=== PATIENT | female | born 1980 | race Caucasian/White ===

== ENCOUNTER 2016-06-30 15:06 | Inpatient (IN) | payer MEDICAID ==
[2016-06-30] MEDS ORDERED: ONDANSETRON 4 MG/2 ML VIAL IVP ONE (15:44)
[2016-06-30] MEDS ORDERED: NS 1,000 ML IV ONE ×3 (15:44→18:17)
--- NOTE | 2016-06-30 15:59 | EDPHY ---
H & P Stated Complaint: worsening Crohn's sx x 2 months. appt w GI on 07/10, can't make it to then. Source: Patient Exam Limitations: No limitations - Personal History LMP (Females 10-55): Unknown Current Tetanus/Diphtheria Vaccine: Unsure Current Tetanus Diphtheria and Acellular Pertussis (TDAP): Unsure - Medical/Surgical History Hx Asthma: No Hx Chronic Respiratory Disease: No Hx Diabetes: No Hx Cardiac Disease: No Hx Renal Disease: No Hx Cirrhosis: No Hx Alcoholism: No Hx HIV/AIDS: No Hx Splenectomy or Spleen Trauma: No Other PMH: CROHN'S DISEASE, HUNNINGTON'S DISEASE - Social History Smoking Status: Current some day smoker HPI/ROS: CHIEF COMPLAINT: Abdominal pain, vomiting, weakness HISTORY OF PRESENT ILLNESS: complains of ongoing abdominal pain. This has been present for months. It is generalized. It is moderate to severe, usually severe. Associated with vomiting and difficulty keeping anything down by mouth. No fever. No bloody stools or emesis. She has difficulty walking she feels so weak from this. She has been seen several times for this and diagnosed with Crohn's disease by CT scan, most recently 2 weeks ago here. She has an appointment on July 10 with [facility] but has not yet been seen by specialists. No trauma. no other associated complaints or modifying factors. REVIEW OF SYSTEMS: Ten systems reviewed and are negative unless otherwise noted in the HPI EXAMINATION General Appearance: Alert, cachectic, no distress, Crying, anxious Head: normocephalic, atraumatic Eyes: Pupils equal and round, no conjunctival pallor or injection ENT, Mouth: Mucous membranes moist Neck: Normal inspection, supple, non-tender Respiratory: Lungs are clear to auscultation Cardiovascular: tachycardic at 110 beats per minute, regular rhythm. Pulses intact throughout Gastrointestinal: Abdomen is soft. generalized tenderness with pain out of proportion to examination. There is no point tenderness. No tympany or rigidity Back: non-tender, no bony abnormalities Neurological: A&O, nonfocal Skin: Warm and dry, no rash. multiple areas of excoriation of varying degrees of healing. Extremities: Nontender, no pedal edema Psychiatric: anxious and visually upset. Denies suicidal ideation DIFFERENTIAL DIAGNOSES: 1. Crohn's flare 2. chronic abdominal pain 3. enteritis 4. colitis 5. urinary tract infection 6. conversion disorder MDM: Acute on chronic abdominal pain and hemodynamically stable patient with a nonacute abdominal examination. She reports a long history of abdominal pain with diagnosis of Crohn's by non specialist providers. She is awaiting appointment on July 10. She reports the last time she was seen here she was given a prescription pain medication that she did not feel for fear of being labeled as a drug-seeking patient. She does admit to taking street drugs of multiple types, most recently over a month ago. Although she denies suicidal ideation to me, I was informed by nursing staff (Shea), that she did admit to being "A little" Suicidal. Thus we will pursue an abdominal pain workup as well as seek a psychiatric evaluation following medication clearance. 16:05 I have discussed the case with Dr. Reji Moss, and at this time he will assume care of the patient. Please see his note for final disposition. SUPERVISION: This is a shared visit (Jan Lemons) Constitutional: Initial Vital Signs Temperature (C) 37.0 C 06/30/16 15:11 Heart Rate 86 06/30/16 15:11 Respiratory Rate 16 06/30/16 15:11 Blood Pressure 119/74 06/30/16 15:11 O2 Sat (%) 99 06/30/16 15:11 O2 Delivery Mode Room Air Allergies/Adverse Reactions: Penicillins Allergy (Unknown, Verified 06/30/16 15:09) Home Medications: Medication Instructions Recorded NK [No Known Home Meds] 06/30/16 - Data Points Laboratory Results: Laboratory Results 06/30/16 15:52 06/30/16 15:52 WBC 7.90 10^3/uL (3.80-9.50) RBC 4.22 10^6/uL (4.18-5.33) Hgb 10.5 L g/dL (12.6-16.3) Hct 31.6 L % (38.0-47.0) MCV 74.9 L fL (81.5-99.8) MCH 24.9 L pg (27.9-34.1) MCHC 33.2 g/dL (32.4-36.7) RDW 17.2 H % (11.5-15.2) Plt Count 552 H 10^3/uL (150-400) MPV 7.8 L fL (8.7-11.7) Neut % (Auto) 66.3 % (39.3-74.2) Lymph % (Auto) 10.8 L % (15.0-45.0) Butts % (Auto) 18.6 H % (4.5-13.0) Eos % (Auto) 1.4 % (0.6-7.6) Baso % (Auto) 0.9 % (0.3-1.7) Nucleat RBC Rel Count 0.0 % (0.0-0.2) Absolute Neuts (auto) 5.24 10^3/uL (1.70-6.50) Absolute Lymphs (auto) 0.85 L 10^3/uL (1.00-3.00) Absolute Monos (auto) 1.47 H 10^3/uL (0.30-0.80) Absolute Eos (auto) 0.11 10^3/uL (0.03-0.40) Absolute Basos (auto) 0.07 10^3/uL (0.02-0.10) Absolute Nucleated RBC 0.00 10^3/uL (0-0.01) Immature Gran % 2.0 H % (0.0-1.1) Immature Gran # 0.16 H 10^3/uL (0.00-0.10) Sodium Pending Potassium Pending Chloride Pending Carbon Dioxide Pending Anion Gap Pending BUN Pending Creatinine Pending Estimated GFR Pending Glucose Pending Calcium Pending Total Bilirubin Pending Conjugated Bilirubin Pending Unconjugated Bilirubin Pending AST Pending ALT Pending Alkaline Phosphatase Pending Total Protein Pending Albumin Pending Lipase Pending Beta HCG, Qual Pending Departure - Departure Clinical Impression: Abdominal pain, Crohn disease Referrals: Joya Greene MD [Primary Care Provider] - As per Instructions
[2016-06-30 16:05] LABS: ABSOLUTE IMMATURE GRANULOCYTES 0.16 10^3/uL (0.00-0.10); ADD DIFF? NO; ADD MORPH? NO; ADD SCAN? NO; ATYPICAL LYMPHOCYTE FLAG 20 (0-99); FRAGMENT RBC FLAG 0 (0-99); HEMATOCRIT 31.6 % (38.0-47.0); HEMOGLOBIN 10.5 g/dL (12.6-16.3); LEFT SHIFT FLG 70 (0-99); LIPEMIA HEMOLYSIS FLAG 80 (0-99); MEAN CELL HEMOGLOBIN 24.9 pg (27.9-34.1); MEAN CELL HEMOGLOBIN CONCENTR. 33.2 g/dL (32.4-36.7); MEAN CELL VOLUME 74.9 fL (81.5-99.8); MEAN PLATELET VOLUME 7.8 fL (8.7-11.7); PLATELET CLUMPS FLAG 0 (0-99); PLATELET COUNT 552 10^3/uL (150-400); RED BLOOD CELL COUNT 4.22 10^6/uL (4.18-5.33); RED CELL DISTRIBUTION WIDTH 17.2 % (11.5-15.2)
--- NOTE | 2016-06-30 16:17 | EDPHY ---
H & P Time Seen by Provider: 06/30/16 16:00 HPI/ROS: Chief complaint. Chest and abdominal pain, can't walk HPI. I assumed care of this patient from the PA and then repeated history physical exam review of systems so this is the 2nd chart after I assumed care of this patient. Patient is a 35-year-old female with history of Crohn's disease. She was seen 06/16 for abdominal pain. At that time CT showed diffuse colonic wall thickening. She was treated with steroids. She otherwise does not take any medications. Today she has different abdominal pain which is generalized but more centered around the umbilicus. She tells me she can't really walk for the past 3 days and has to lie down in the street or even going through the house. She thinks is from malnourishment. She says she has had fever to 102 degrees. No cough. She has left anterior chest discomfort that she describes as crampy without radiation. It has been off and on for several months without precipitating factors. Denies shortness of breath. No vomiting today. She has had diarrhea. Denies urinary symptoms. ROS Constitutional. Fever Eyes. no problems with vision ENT. no sore throat, no nasal drainage Cardiovascular. Chest pain Respiratory. no shortness of breath, no cough Abdominal. Abdominal pain with diarrhea . no problems urinating MS. no calf pain/swelling, no neck/back pain, no joint pain Skin. no rash Lymph. no swollen glands Neuro. Difficulty walking Past Medical/Surgical History: Past medical history is significant for Crohn's disease and Moriah's disease. Social History: Single, daily smoker, denies alcohol Smoking Status: Current some day smoker Physical Exam: General Appearance: Alert well-developed female mild distress vital signs are stable. Eyes: Pupils equal and round no pallor or injection. ENT, Mouth: Mucous membranes are moist. Respiratory: There are no retractions, lungs are clear to auscultation. Cardiovascular: Regular rate and rhythm. Gastrointestinal: Abdomen is soft with generalized tenderness especially at the umbilicus. No rebound tenderness. Normal bowel sounds. No masses Neurological: Awake and alert, sensory and motor exams grossly normal. Skin: Warm and dry, no rashes. Musculoskeletal: Neck is supple nontender. Extremities symmetrical, full range of motion. Psychiatric: Patient is oriented X 3, there is no agitation. Constitutional: Initial Vital Signs Temperature (C) 37.0 C 06/30/16 15:11 Heart Rate 86 06/30/16 15:11 Respiratory Rate 16 06/30/16 15:11 Blood Pressure 119/74 06/30/16 15:11 O2 Sat (%) 99 06/30/16 15:11 O2 Delivery Mode Room Air Allergies/Adverse Reactions: Penicillins Allergy (Unknown, Verified 06/30/16 18:08) Home Medications: Medication Instructions Recorded NK [No Known Home Meds] 06/30/16 Medical Decision Making - Diagnostics EKG Interpretation: EKG interpreted by me shows normal sinus rhythm with normal interval and axis. QRS is normal there is no significant ST elevation or depression. There is no arrhythmia. The rate is 79. Imaging: One-view chest x-ray is interpreted by me as normal CT abdomen and pelvis with IV contrast reviewed by me and discussed with Dr. Millan shows worse colitis since previous CT June 16. No evidence for abscess. Normal appendix Procedures: IV normal saline. Patient was given morphine and Zofran prior to my seeing the patient. She is asking for further pain medication ED Course/Re-evaluation: Re-evaluation at 6:00 p.m.. The patient and I discussed imaging and lab results. We discussed treatment plan including recommendation for admission and importance of follow-up and further evaluation. She expresses understanding and agreement I consulted and discussed the case with Dr. george, GI, who recommends obtaining a C difficile. If C difficile PCR is negative then to begin Solu- Medrol q.8h hours. I consulted and discussed the case with Dr. rosangela waller, hospitalist, who agrees to the admission Differential Diagnosis: I considered appendicitis, diverticulitis, Crohn's disease, abscess, pneumoperitoneum - Data Points Laboratory Results: Laboratory Results 06/30/16 15:52 06/30/16 15:52 06/30/16 06/30/16 06/30/16 17:15 16:55 15:53 WBC RBC Hgb Hct MCV MCH MCHC RDW Plt Count MPV Neut % (Auto) Lymph % (Auto) [place] % (Auto) Eos % (Auto) Baso % (Auto) Nucleat RBC Rel Count Absolute Neuts (auto) Absolute Lymphs (auto) Absolute Monos (auto) Absolute Eos (auto) Absolute Basos (auto) Absolute Nucleated RBC Immature Gran % Immature Gran # Sodium Potassium Chloride Carbon Dioxide Anion Gap BUN Creatinine Estimated GFR Glucose Calcium Total Bilirubin Conjugated Bilirubin Unconjugated Bilirubin AST ALT Alkaline Phosphatase Troponin I < 0.012 ng/mL REJ (0-0.034) Total Protein Albumin Lipase Beta HCG, Qual Specimen Hemolysis Urine Color PALE YELLOW Urine Appearance CLEAR Urine pH 8.0 H (5.0-7.5) Ur Specific Emerson 1.005 (1.002-1.030) Urine Protein NEGATIVE (NEGATIVE) Urine Ketones NEGATIVE (NEGATIVE) Urine Blood NEGATIVE (NEGATIVE) Urine Nitrate NEGATIVE (NEGATIVE) Urine Bilirubin NEGATIVE (NEGATIVE) Urine Urobilinogen NEGATIVE EU (0.2-1.0) Ur Leukocyte Esterase TRACE H (NEGATIVE) Urine RBC 1-3 /hpf (0-3) Urine WBC 1-3 /hpf (0-3) Ur Epithelial Cells TRACE /lpf (NONE-1+) Urine Bacteria TRACE H /hpf (NONE SEEN) Ur Culture Indicated? INDICATED H (NI) Urine Glucose NEGATIVE (NEGATIVE) Urine Opiates Screen NON-NEGATIVE H (NEGATIVE) Urine Barbiturates NEGATIVE (NEGATIVE) Ur Phencyclidine Scrn NEGATIVE (NEGATIVE) Ur Amphetamine Screen NEGATIVE (NEGATIVE) U Benzodiazepines Scrn NEGATIVE (NEGATIVE) Urine Cocaine Screen NEGATIVE (NEGATIVE) U Marijuana (THC) Screen NON-NEGATIVE H (NEGATIVE) 06/30/16 15:52 WBC 7.90 10^3/uL (3.80-9.50) RBC 4.22 10^6/uL (4.18-5.33) Hgb 10.5 L g/dL (12.6-16.3) Hct 31.6 L % (38.0-47.0) MCV 74.9 L fL (81.5-99.8) MCH 24.9 L pg (27.9-34.1) MCHC 33.2 g/dL (32.4-36.7) RDW 17.2 H % (11.5-15.2) Plt Count 552 H 10^3/uL (150-400) MPV 7.8 L fL (8.7-11.7) Neut % (Auto) 66.3 % (39.3-74.2) Lymph % (Auto) 10.8 L % (15.0-45.0) [place] % (Auto) 18.6 H % (4.5-13.0) Eos % (Auto) 1.4 % (0.6-7.6) Baso % (Auto) 0.9 % (0.3-1.7) Nucleat RBC Rel Count 0.0 % (0.0-0.2) Absolute Neuts (auto) 5.24 10^3/uL (1.70-6.50) Absolute Lymphs (auto) 0.85 L 10^3/uL (1.00-3.00) Absolute Monos (auto) 1.47 H 10^3/uL (0.30-0.80) Absolute Eos (auto) 0.11 10^3/uL (0.03-0.40) Absolute Basos (auto) 0.07 10^3/uL (0.02-0.10) Absolute Nucleated RBC 0.00 10^3/uL (0-0.01) Immature Gran % 2.0 H % (0.0-1.1) Immature Gran # 0.16 H 10^3/uL (0.00-0.10) Sodium 131 L mEq/L (134-144) Potassium 5.0 mEq/L (3.5-5.2) Chloride 97 mEq/L (97-110) Carbon Dioxide 26 mEq/l (22-31) Anion Gap 8 mEq/L (8-16) BUN 8 mg/dL (7-23) Creatinine 0.6 mg/dL (0.6-1.0) Estimated GFR > 60 Glucose 90 mg/dL (70-100) Calcium 8.3 L mg/dL (8.5-10.4) Total Bilirubin 0.7 mg/dL (0.1-1.4) Conjugated Bilirubin 0.5 mg/dL (0.0-0.5) Unconjugated Bilirubin 0.2 mg/dL (0.0-1.1) AST 36 IU/L (14-46) ALT 24 IU/L (9-52) Alkaline Phosphatase 66 IU/L (38-126) Troponin I Total Protein 6.4 g/dL (6.3-8.2) Albumin 2.6 L g/dL (3.5-5.0) Lipase 185.0 IU/L (23-300) Beta HCG, Qual NEGATIVE Specimen Hemolysis 161 Urine Color Urine Appearance Urine pH Ur Specific Emerson Urine Protein Urine Ketones Urine Blood Urine Nitrate Urine Bilirubin Urine Urobilinogen Ur Leukocyte Esterase Urine RBC Urine WBC Ur Epithelial Cells Urine Bacteria Ur Culture Indicated? Urine Glucose Urine Opiates Screen Urine Barbiturates Ur Phencyclidine Scrn Ur Amphetamine Screen U Benzodiazepines Scrn Urine Cocaine Screen U Marijuana (THC) Screen Medications Given: Discontinued Medications Sodium Chloride (Ns) 1,000 mls @ 0 mls/hr IV ONCE ONE PRN Reason: Wide Open Stop: 06/30/16 15:45 Last Admin: 06/30/16 16:17 Dose: 1,000 mls Sodium Chloride (Ns) 1,000 mls @ 0 mls/hr IV ONCE ONE PRN Reason: Wide Open Stop: 06/30/16 16:14 Last Admin: 06/30/16 16:26 Dose: 1,000 mls Methylprednisolone Sodium Succinate (Solu-Medrol) 125 mg IVP EDNOW ONE Stop: 06/30/16 17:26 Last Admin: 06/30/16 17:28 Dose: 125 mg Morphine Sulfate (Morphine) 6 mg IVP EDNOW ONE Stop: 06/30/16 15:45 Last Admin: 06/30/16 16:52 Dose: Not Given Morphine Sulfate (Morphine) 6 mg IVP EDNOW ONE Stop: 06/30/16 16:27 Last Admin: 06/30/16 16:26 Dose: 6 mg Ondansetron HCl (Zofran) 4 mg IVP EDNOW ONE Stop: 06/30/16 15:45 Last Admin: 06/30/16 16:19 Dose: Not Given Departure - Departure Disposition: [facility] Acute Clinical Impression: Abdominal pain Qualifiers: Abdominal location: generalized Qualifier Code: (R10.84) Generalized abdominal pain Crohn disease Qualifiers: Gastrointestinal tract location: unspecified location Digestive disease complication type: without complication Qualifier Code: (K50.90) Crohn's disease , unspecified, without complications Condition: Fair Referrals: Joya Greene MD [Primary Care Provider] - As per Instructions
[2016-06-30 16:19] LABS: ALANINE AMINOTRANSFERASE 24 IU/L (9-52); ALBUMIN 2.6 g/dL (3.5-5.0); ALKALINE PHOSPHATASE 66 IU/L (38-126); ANION GAP 8 mEq/L (8-16); ASPARTATE AMINOTRANSFERASE 36 IU/L (14-46); BILIRUBIN,TOTAL 0.7 mg/dL (0.1-1.4); BILIRUBIN-CONJUGATED 0.5 mg/dL (0.0-0.5); BILIRUBIN-UNCONJUGATED 0.2 mg/dL (0.0-1.1); CALCIUM 8.3 mg/dL (8.5-10.4); CARBON DIOXIDE 26 mEq/l (22-31); CHLORIDE 97 mEq/L (97-110); CREATININE 0.6 mg/dL (0.6-1.0); GLOMERULAR FILTRATION RATE > 60; GLUCOSE 90 mg/dL (70-100); SODIUM 131 mEq/L (134-144); SPECIMEN HEMOLYSIS 161; TOTAL PROTEIN 6.4 g/dL (6.3-8.2)
--- NOTE | 2016-06-30 16:29 | CPEKG ---
Heart Rate: 79 RR Interval: 759 P-R Interval: 144 QRSD Interval: 84 QT Interval: 376 QTC Interval: 432 P Rhodelia: 77 QRS Rhodelia: 84 T Wave Rhodelia: 72 EKG Severity - NORMAL ECG - EKG Impression: SINUS RHYTHM Electronically Signed By: Reji Moss 30-Jun-2016 16:51:11
--- NOTE | 2016-06-30 16:49 | DX ---
Frontal chest - June 30, 2016 Clinical indication: Chest pain. Findings: Lungs are clear. There is a questionable area of nodularity overlying the 9th rib laterall y in the right lower lobe. This area of scarring or nodularity does appear to be present in retrospec t on the November 07, 2013 study and actually is slightly smaller today. I suspect this represents old gra nulomatous disease. This was not mentioned on all previous chest x-rays and likely secondary to rotat ion. The upper abdomen is unremarkable. Impression: No acute cardiopulmonary process. Probably benign granuloma right midlung. Initial accurate preliminary report was provided by the Emergency Department physician.
[2016-06-30] MEDS ORDERED: IOPAMIDOL (ISOVUE-300) 50 ML VIAL IV ONE (16:53)
[2016-06-30] MEDS ORDERED: methylPREDNISolone SOD SUCC 125 MG/2 ML VIAL ONE (17:22)
[2016-06-30] MEDS ORDERED: methylPREDNISolone SOD SUCC 125 MG/2 ML VIAL IVP ONE (17:25)
--- NOTE | 2016-06-30 17:42 | CT ---
CT Scan of the Abdomen and Pelvis (With Contrast) 1708 hours History: Abdominal pain, history of Crohn's colitis. Comparison: CT June 16, 2016 Technique: Axial computed tomographic images of the abdomen and pelvis were obtained with the unevent ful intravenous administration of 80 mL Isovue-300 contrast. No oral or rectal contrast which limits the study. Dose reduction techniques were utilized. CT Abdomen Findings: Lung bases: Normal. Liver: Normal. Biliary system: No obstruction. Spleen: Normal. Pancreas: Normal. Adrenals: Normal. Kidneys: No obstruction or solid masses. Abdominal Aorta: No aneurysm. Moderate stool in the descending colon. Circumferential wall thickening of the transverse, descending , and rectosigmoid colon pericolonic inflammatory changes appearing worse since June 16, 2016 con sistent with severe diffuse colitis. Limited due to lack of oral contrast, however no definite eviden ce of drainable abscess or pneumoperitoneum. CT Pelvis Findings: Rectosigmoid colitis as described above without focal fluid collection. No adnexa l masses. A posterior right-sided pericolonic inflamed lymph node measuring 8 mm. No evidence of infl ammatory thickening of the appendix. Impression: 1. Worsening diffuse colitis of the transverse, descending and rectosigmoid colon consistent with inf lammatory bowel disease given the patient's history. Differential diagnoses includes nonspecific infe ctious inflammatory colitis. 2. No CT evidence of appendicitis, abscess or bowel obstruction. 3. Moderate constipation in the right colon. 4. No pneumoperitoneum. Findings and recommendations discussed with Emergency Department physician, Dr. Reji Moss, at 1730 hours today. Final report concurs with initial preliminary interpretation.
[2016-06-30 17:44] LABS: COLOR PALE YELLOW; LEUKOCYTE ESTERASE,URINE TRACE (NEGATIVE); NITRITE,URINE NEGATIVE (NEGATIVE)
[2016-06-30] MEDS ORDERED: HYDROmorphONE/DILAUDID 1 MG/ML SYR IVP ONE ×2 (18:01→19:28)
[2016-06-30 18:03] LABS: BACTERIA TRACE /hpf (NONE SEEN)
[2016-06-30] MEDS ORDERED: ACETAMINOPHEN 325 MG TAB PO PRN (18:17)
[2016-06-30] MEDS ORDERED: ONDANSETRON DISINTEGRATING 4 MG TAB PO PRN (18:17)
[2016-06-30] MEDS ORDERED: ONDANSETRON 4 MG/2 ML VIAL IVP PRN (18:17)
--- NOTE | 2016-06-30 20:20 | GHP ---
[f rep st] HISTORY AND PHYSICAL DATE OF ADMISSION: 06/30/2016 CHIEF COMPLAINT: Abdominal pain, and diarrhea. HISTORY OF PRESENT ILLNESS: A 35-year-old female with a history of Crohn's who has had progressing f atigue, lethargy, abdominal discomfort and diarrhea over the course of the past several weeks. The p atient reports near-complete anorexia taking only liquids for nutrition, typically milk is most succe ssful. She reports when she eats solid food, she feels as if the food cannot pass and she will vomit . She describes this vomitus as nonbloody, typically bilious. Additionally notes that she has had l oose stools, although intermittently with a formed stool. Denies any gross blood. Denies any melena . The patient has subjective fevers and chills. Reports some dysphagia related to the nausea and vo miting. Has had some headache. Denies vision changes, although her vision overall has been progress ively worse. Reports some chest pain and shortness of breath, she attributes to anxiety attacks, and has had extreme weight loss over the course of the last several weeks to months. PAST MEDICAL HISTORY: 1. Crohn disease. 2. History of polysubstance abuse including opiates, cannabis and tobacco. 3. Depression. 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 5. Suspected bipolar depression. 6. Suspected borderline personality disorder. 7. History of C difficile colitis approximately a year ago. SOCIAL HISTORY: Occasional cigarettes. The patient denies alcohol use. Does use daily marijuana. Denies any illicit drugs or narcotic use recently. FAMILY HISTORY: Patient is adopted, her mother had Mariposa chorea. REVIEW OF SYSTEMS: A 10-point review of systems is negative with the exception of that reported in t he HPI. PHYSICAL EXAMINATION: VITAL SIGNS: Blood pressure 130/89, heart rate 89, respiratory rate 15, 95% o n room air and 37.0. GENERAL: This is a thin-appearing nervous female. HEENT: Notable for dry muc ous membranes. Eye exam is negative for any icterus. CARDIAC: Patient is regular rate and rhythm. PULMONARY: Clear to auscultation bilaterally. GASTROINTESTINAL: The patient is thin. Has positiv e bowel sounds. Has mild diffuse tenderness to palpation. No rebound or guarding. MUSCULOSKELETAL: Negative for any lower extremity edema. SKIN: Negative for any rashes. NEUROLOGIC: She is alert and oriented x3. PSYCHIATRIC: She is very anxious and agitated on interview and examination. DATA: White count 7.9, hematocrit 31, platelets of 552. Sodium 131, creatinine 0.6. Liver function tests are normal. Beta hCG is negative. Urinalysis is negative. Tox screen positive for opiates a nd marijuana. CT of the abdomen, which I personally reviewed and interpreted, shows worsening of a diffuse colitis since interval imaging approximately 2 weeks ago. ASSESSMENT AND PLAN: This is a 35-year-old female presenting with abdominal pain and diarrhea with a history of Crohn's. 1. Suspected acute Crohn flare. We will rule out C difficile colitis. As long as stool studies are negative, will initiate IV Solu-Medrol. Gastroenterology has been consulted from the emergency depa rtment and will consult in the morning. 2. Severe protein-calorie malnutrition. Patient has lost a lot a weight and does appear malnourishe d on my examination. Will consult Dietary and add nourishment to her meals per their recommendations . 3. Hyponatremia, I suspect hypovolemic in nature. Will fluid resuscitate with normal saline and rec heck in the morning. 4. Suspected bipolar depression. Patient is currently not on medications. 5. Prophylaxis with Lovenox. 6. Diet regular until Gastroenterology indicates procedure is necessary. 7. Disposition: I expect greater than 2 midnights as the patient is presenting with suspected Crohn flare requiring IV steroid treatment and Gastroenterology consultation. I have discussed the case w ith the emergency room physician. Patient will be triaged to the medical-surgical floor for care. /[id number]/MODL
[2016-06-30] MEDS: NS 1,000 ML IV SCH (20:23)
[2016-06-30] MEDS: ZOLPIDEM TARTRATE 5 MG TAB PO PRN (21:21)
[2016-06-30] MEDS: methylPREDNISolone SOD SUCC 40 MG/ML VIAL IVP SCH (22:17)
[2016-06-30] MEDS: PROMETHAZINE HCL 25 MG/ML VIAL IV PRN (23:18)
[2016-07-01] MEDS ORDERED: LORazepam 2 MG/ML INJ IV ONE (02:30)
[2016-07-01] MEDS: NS 1,000 ML IV SCH (04:26)
[2016-07-01] MEDS: methylPREDNISolone SOD SUCC 40 MG/ML VIAL IVP SCH (04:52)
[2016-07-01] MEDS: PROMETHAZINE HCL 25 MG/ML VIAL IV PRN ×2 (04:52→17:53)
[2016-07-01] MEDS: ENOXAPARIN 40 MG/0.4 ML SYR SC SCH (08:03)
[2016-07-01 08:15] LABS: ADD MORPH? NO; ATYPICAL LYMPHOCYTE FLAG 0 (0-99); FRAGMENT RBC FLAG 0 (0-99); HEMATOCRIT 32.5 % (38.0-47.0); HEMOGLOBIN 10.3 g/dL (12.6-16.3); LIPEMIA HEMOLYSIS FLAG 80 (0-99); MEAN CELL HEMOGLOBIN 24.5 pg (27.9-34.1); MEAN CELL HEMOGLOBIN CONCENTR. 31.7 g/dL (32.4-36.7); MEAN CELL VOLUME 77.4 fL (81.5-99.8); MEAN PLATELET VOLUME 7.8 fL (8.7-11.7); PLATELET CLUMPS FLAG 0 (0-99); PLATELET COUNT 579 10^3/uL (150-400); RED CELL DISTRIBUTION WIDTH 17.4 % (11.5-15.2)
[2016-07-01 08:21] LABS: ADD DIFF? YES; ADD SCAN? NO; LEFT SHIFT FLG 270 (0-99)
[2016-07-01] MEDS ORDERED: LORazepam 2 MG/ML INJ IVP ONE (08:23)
[2016-07-01 08:24] LABS: ANION GAP 7 mEq/L (8-16); CALCIUM 7.9 mg/dL (8.5-10.4); CARBON DIOXIDE 26 mEq/l (22-31); CHLORIDE 105 mEq/L (97-110); CREATININE 0.5 mg/dL (0.6-1.0); GLOMERULAR FILTRATION RATE > 60; GLUCOSE 123 mg/dL (70-100); POTASSIUM 4.2 mEq/L (3.5-5.2); SODIUM 138 mEq/L (134-144)
[2016-07-01 09:14] LABS: KERATOCYTES 1+; PLATELET ESTIMATE ADEQUATE (ADEQ); POLYCHROMASIA 1+; SCHISTOCYTES 1+
[2016-07-01] MEDS ORDERED: ONDANSETRON 4 MG/2 ML VIAL IVP PRN (10:41)
[2016-07-01] MEDS ORDERED: MAGNESIUM HYDROXIDE 30 ML UDCUP PO PRN (10:41)
[2016-07-01] MEDS ORDERED: BISACODYL 10 MG SUPP PR PRN (10:41)
[2016-07-01] MEDS ORDERED: POLYETHYLENE GLYCOL 3350 17 GM PKT PO PRN (10:41)
[2016-07-01] MEDS ORDERED: LACTULOSE 20 GM/30 ML UDCUP PO PRN (10:41)
[2016-07-01] MEDS: HYDROmorphONE/DILAUDID 1 MG/ML SYR IVP PRN ×5 (11:57→23:40)
[2016-07-01] MEDS: clonazePAM 0.5 MG TAB PO PRN ×2 (11:58→20:57)
[2016-07-01] MEDS: predniSONE 20 MG TAB PO SCH (14:40)
[2016-07-01] MEDS: MESALAMINE 800 MG TAB.DR PO SCH ×2 (16:07→20:49)
--- NOTE | 2016-07-01 18:07 | HOSPPROG ---
Hospitalist Progress Note Assessment/Plan: Assessment: 35-year-old female presenting with acute abdominal pain in the setting of acute Crohn disease flare Plan: 1. Crohn disease flare. Acute, evidenced by abdominal pain with loose bowel movements and diffuse colitis on CT imaging with a known history of Crohn's disease -patient has been under treated in the past secondary to her mental health instability and her inability to successfully it here or follow up with treatment -discussed with Dr. Escobar, the plan will be to transition the patient from IV steroids today to oral prednisone 40 mg daily -add mesalamine, adjust to once daily dosing if on the medication formulary -monitor oral intake, abdominal pain, bowel movements -provide supportive pain management, adjusted to oral and IV Dilaudid as needed -no indication for colonoscopy at this time -the patient will follow up with Dr. Ely as an outpatient 2. Bipolar disease and suspected borderline personality disorder. The patient has evidence of dense mental health issues, with widely fluctuating mood and passive threat to harm self, reportedly recently exacerbated by recent emotional trauma -patient denies that she is a physical threat or harm to self, denies suicidal ideation -the patient has had witnessed outbursts of what could be interpreted as self- harm, when she is pulling at her hair and scratching herself, as well as verbalizing that she is so frustrated by her physical situation that she might rather -that being said, I believe these are attempts to obtain secondary gain such as attention from nurses or staff, as well as obtain pain management adjustments -the patient does not require an M1 hold at this time, as I do not believe that she is actively a threat to self -this impression and could certainly change if the patient vocalizes specific ideas about harming herself or has witnessed attempts of dangerous activity -discussed extensively with for nurse and charge nurse, we have used a sitter intermittently, if further concerns arise overnight, would have low threshold placed on M1 hold and transfer to ICU -behavioral health nurse assistance appreciated -patient has requested as-needed Klonopin and this has been provided with a dose range 3. Suspected severe protein calorie malnutrition. Evidence by proximal muscle wasting, low BMI of 16.1, reports of weight loss and inability to tolerate oral intake -get dietary consult -provide supplements the Ensure and smoothies Diet. Regular Prophylaxis. High risk patient, Lovenox 40 Code. Full Disposition. Anticipated discharge is uncertain at this time, pending stabilization of her Crohn's disease flare. Subjective: Patient was pulling at her hair and scratching herself this morning , reports that she is very frustrated about her physical condition Objective: Vital Signs Temp Pulse Resp BP Pulse Ox 36.9 C 75 16 109/78 97 07/01/16 15:56 07/01/16 15:56 07/01/16 15:56 07/01/16 15:56 07/01/16 15:56 Laboratory Results 07/01/16 08:00 07/01/16 08:00 06/30/16 07/01/16 07/02/16 05:59 05:59 05:59 Intake Total 4850 4583 Balance 4850 4589 - Time Spent With Patient Time Spent with Patient: greater than 35 minutes Time Spent with Patient: Greater than 35 minutes spent on this patients care, greater than 50% of time spent counseling, educating, and coordinating care regarding the above mentioned plan. - Physical Exam Constitutional: chronically ill appearing, uncomfortable, other (Proximal muscle wasting), No no apparent distress, No not in pain Cardiovascular: No systolic murmur, No tachycardia, No edema Respiratory: no respiratory distress, no rales or rhonchi, clear to auscultation Gastrointestinal: normoactive bowel sounds, tenderness (Mild to moderate palpation left hemidiaphragm), distension (Mild) Neurologic: AAOx3 Psychiatric: not encephalopathic, anxious, agitated, other (Widely fluctuating affect and mood, denies intent to harm self) ICD10 Worksheet Patient Problems: Problems Problem Status Diagnosed Abdominal pain Acute Crohn disease Acute Anxiety attack Acute Depression - Depressive disorder Acute Personality disorder Acute Restless leg syndrome Acute Anemia Chronic Polysubstance dependence Chronic Suicidal thoughts Chronic Ulcerative colitis, acute Chronic
[2016-07-01] MEDS: SENNOSIDES/DOCUSATE SODIUM TAB PO SCH (20:58)
[2016-07-01] MEDS: ZOLPIDEM TARTRATE 5 MG TAB PO PRN (22:07)
--- NOTE | 2016-07-01 22:54 | GCON ---
[f rep st] CONSULTATION GASTROENTEROLOGY CONSULTATION. DATE OF CONSULTATION: 07/01/2016 REFERRING PHYSICIAN: Anaya Gomez MD REASON FOR CONSULTATION: History of Crohn disease. HISTORY OF PRESENT ILLNESS: The patient is a 35-year-old female with a past medical history signific ant for borderline personality disorder, possible bipolar disorder, depression, polysubstance abuse, history of carrying Kearney chorea disease gene and history of Crohn disease of her colon. She ji s had Crohn disease of her colon for many years. She has never had very good therapy secondary to he r substance abuse and borderline personality disorder, bipolar disorder. She has been admitted to [facility] number of times over the last many years. She has been seen by my partners most of the mes. She has not been compliant with any followup in our office. She has been difficult to get into the medical system secondary to her other issues. She currently says that she has not used IV drugs for a year and that she understands that she needs to treat her Crohn disease with things other than diet therapy and herbal remedies. She has only been on mesalamine in the past and steroids. Mesala mine is not very effective for her disease because she has liuhkuyp-ay-bxxano disease and steroids af fect her psychiatric issues significantly. She has never been on immunomodulators or biologic therap y. It has been felt that her previous active IV drug abuse and other psychological issues were the b arriers to care. She is now being admitted for abdominal pain, diarrhea. She has had significant we ight loss. She has looks quite malnourished. She complains of diffuse abdominal pain, nausea, vomit ing. She says that she has subjective fevers and chills and a markedly positive review of systems, i ncluding headaches, pain to touch in multiple areas, GI symptoms as above, some chest pain, shortness of breath, anxiety attacks, mild dysuria. A CT scan obtained from the emergency room revealed signi ficant colitis consistent with Crohn's colitis with a possible area of jejunal abnormality as well. The patient is now admitted for the above and I am called to help evaluate and treat her Crohn diseas e. PAST MEDICAL HISTORY: Crohn disease, polysubstance abuse, depression, bipolar disorder, borderline p ersonality, carries the gene for Kearney disease, a history of Clostridium difficile in the past. PAST SURGICAL HISTORY: No previous surgeries. MEDICATIONS: Tylenol p.r.n., Dulcolax suppositories p.r.n., clonazepam p.r.n., Benadryl p.r.n., Love nox 40 mg subcu daily, Haldol p.r.n., Dilaudid p.r.n., Cephulac p.r.n. (which does not need since she has diarrhea), milk of magnesia p.r.n. (which she does not need), Asacol HD 600 mg p.o. t.i.d., Zofr an p.r.n., MiraLAX p.r.n., prednisone 40 mg daily, Senokot p.r.n., Ambien 5 mg p.o. q.h.s. p.r.n. ALLERGIES: No known drug allergies. SOCIAL HISTORY: She smokes cigarettes. She says she has not used IV drugs in a year, although I thi nk is probably less than that. She does smoke marijuana daily. She is currently homeless and living with friends. FAMILY HISTORY: She is adopted. Her mother reportedly had Kearney chorea. REVIEW OF SYSTEMS: A complete 10-point review of systems was performed and was negative, other than the HPI. PHYSICAL EXAM: GENERAL: A chronically ill, cachectic female sitting in bed. VITAL SIGNS: Blood pr essure 108/73, pulse 86, respirations 16, 94% on room air, temperature 36.8. HEENT: Eyes anicteric. PERRL, EOMI. Mouth: No lesions. Moist mucous membranes. NECK: Supple. Full range of motion. No JVD. BACK: She has some spine tenderness and tenderness all over her body with any palpation: L UNGS: Clear to auscultation. CARDIAC: S1, S2. Regular rate and rhythm. ABDOMEN: Bowel sounds ar e normal in pitch and frequency. The abdomen is soft with diffuse tenderness. No rebound. EXTREMIT IES: No cyanosis, clubbing, or edema. NEUROLOGIC: Cranial nerves intact. Nonfocal. SKIN: No stigmata of advanced liver disease. No rashes. PSYCHIATRIC: She is very anxious and agit ated and a little defensive and belligerent with the history at times. LABORATORY DATA: 1. From today: WBC 11.54 hemoglobin 10.3, hematocrit 32.5 platelet count 579. Sodium 138, potassiu m 4.2, chloride 105, bicarb 26, BUN 6, creatinine 0.7, glucose 123, calcium 7.9. 2. From yesterday: AST 36, ALT 24, albumin 2.6, total protein 6.4, bilirubin 0.7. Alkaline phospha tase was 66 yesterday, lipase was 185. Beta-hCG was negative. C diff toxin from yesterday is negati ve. Toxicology shows urine opiates are positive as well as marijuana. 3. Abdominal CT scan from June 30, 2016 compared to June 16, 2016: Worsening diffuse colitis of the transverse descending rectosigmoid colon consistent inflammatory bowel disease. No CT eviden ce of appendicitis, abscess, or bowel obstruction. Moderate constipation in the right colon. No pne umoperitoneum. It is limited due to lack of oral contrast. 4. On June 16, 2016, a CT scan is very similar, except they mentioned that there is a lack of co ntrast, but the proximal jejunum also appears moderately thickened. 5. Looking at the CAT scan from December 09, 2013: Persistent colitis from the transverse colon to the rectum, most pronounced at the level of the sigmoid colon. Stable per rectum with reactive lymph nod e. 6. Limited colonoscopy March 04, 2010: Severe granularity, nodular, with ulceration in sigmoid colon to the extent of the exam. Stopped secondary to patient's discomfort and significant inflammat ion. Pathology at that time from the sigmoid colon revealed: Biopsies of the sigmoid colon on 2009: Chronic and mild acute inflammation with evidence ulceration, crypt abscesses identif ied, could be consistent with IBD. ASSESSMENT: 1. Worsening Crohn's colitis and possible jejunal inflammation on previous CT scan. 2. Polysubstance abuse. 3. Borderline personality disorder. 4. Possible bipolar disorder. RECOMMENDATIONS: 1. Oral steroids to control her disease are present. 2. Restart mesalamine. I am not sure if there was any mesalamine available on Medicaid formulary. I cannot find one. I would prefer the once-a-day medications such as Lialda or Apriso, as the patien t says she will not be compliant with medications that need to be taken multiple times a day. 3. Patient already has an appointment with our partner Dr. Ely for July 10. I do believe the patient needs biologic therapy, but I am concerned that her compliance will be extremely poor. Thes e are significant medications. I have stressed to her that she needs to make appointments to continu e with lab tests as we request. I would like to see a therapist and deal with some of the underlying issues with her psychiatric problems, as well as her addiction issues. She was reluctance to deal w ith any of the addictions. She is saying that already has and she is not really fully admitting her issues at the present time. As noted above, she is also a little bit defensive and belligerent durin g the exam which does not kaykay well for her future compliance. 4. The biologic that I would choose for her would be an infusion such as Remicade for TNFs or Entyvi o. I would hesitate to be giving her any self injectables given her IV drug use history. 5. Once she is compliant, further evaluation could include capsule endoscopy, MRA to make sure there is no small-bowel inflammation. 6. In addition, prior to starting biologics, we would need hepatitis serologies and TB serologies wh ich I will order here. 7. Further recommendations to follow the results of the above and clinical course. As I noted above, I do believe that the patient would benefit significantly from biologic therapy. T here is significant barriers to adequate care in her, including her history of polysubstance abuse, b orderline personality disorder, and possible bipolar disease I stressed to her that we would be very happy to treat her and we think that we have medications that could help, her but she needs to have a significant input and partake in her healthcare. It is not clear to me if she can even be able to o vercome the psychosocial barriers to affective Crohn's treatment. Thank you for allowing me to participate in the patient's healthcare. Do not hesitate to call me daniel h any questions. Copy requested to: [facility] /[id number]/MODL
[2016-07-02] MEDS: HALOPERIDOL LACT 5 MG/ML INJ IVP PRN ×2 (01:43→08:44)
[2016-07-02] MEDS: HYDROmorphONE/DILAUDID 1 MG/ML SYR IVP PRN ×2 (01:43→08:43)
[2016-07-02] MEDS: HYDROmorphONE/DILAUDID 2 MG TAB PO PRN ×3 (04:55→14:38)
[2016-07-02] MEDS: clonazePAM 0.5 MG TAB PO PRN ×2 (04:58→13:16)
[2016-07-02 06:13] LABS: ADD DIFF? YES; ADD MORPH? NO; ATYPICAL LYMPHOCYTE FLAG 0 (0-99); FRAGMENT RBC FLAG 0 (0-99); HEMOGLOBIN 9.8 g/dL (12.6-16.3); LIPEMIA HEMOLYSIS FLAG 80 (0-99); MEAN CELL HEMOGLOBIN 24.9 pg (27.9-34.1); MEAN CELL HEMOGLOBIN CONCENTR. 31.6 g/dL (32.4-36.7); MEAN CELL VOLUME 78.7 fL (81.5-99.8); MEAN PLATELET VOLUME 8.1 fL (8.7-11.7); PLATELET CLUMPS FLAG 0 (0-99); PLATELET COUNT 581 10^3/uL (150-400); RED BLOOD CELL COUNT 3.94 10^6/uL (4.18-5.33); RED CELL DISTRIBUTION WIDTH 17.9 % (11.5-15.2)
[2016-07-02 06:26] LABS: ALANINE AMINOTRANSFERASE 27 IU/L (9-52); ALBUMIN 2.4 g/dL (3.5-5.0); ALKALINE PHOSPHATASE 69 IU/L (38-126); ANION GAP 8 mEq/L (8-16); ASPARTATE AMINOTRANSFERASE 13 IU/L (14-46); BILIRUBIN,TOTAL 0.2 mg/dL (0.1-1.4); CARBON DIOXIDE 25 mEq/l (22-31); CHLORIDE 105 mEq/L (97-110); CREATININE 0.7 mg/dL (0.6-1.0); GLOMERULAR FILTRATION RATE > 60; GLUCOSE 92 mg/dL (70-100); POTASSIUM 4.1 mEq/L (3.5-5.2); SODIUM 138 mEq/L (134-144); TOTAL PROTEIN 5.6 g/dL (6.3-8.2)
[2016-07-02 06:40] LABS: ADD SCAN? NO; LEFT SHIFT FLG 300 (0-99)
[2016-07-02 07:05] LABS: KERATOCYTES 1+; MACROCYTES 1+; PLATELET ESTIMATE INCREASED (ADEQ); POLYCHROMASIA 1+
[2016-07-02 08:35] VITALS: BP 127/105; TEMP 98.4
[2016-07-02 08:38] VITALS: PULSE 96; RESP 34; O2SAT 100
[2016-07-02] MEDS: predniSONE 20 MG TAB PO SCH (09:13)
[2016-07-02] MEDS: ENOXAPARIN 40 MG/0.4 ML SYR SC SCH (12:34)
[2016-07-02] MEDS: MESALAMINE 800 MG TAB.DR PO SCH ×2 (12:34→14:47)
[2016-07-02] MEDS: SENNOSIDES/DOCUSATE SODIUM TAB PO SCH (12:34)
[2016-07-02 13:12] LABS: HEPATITIS Bs Ab QUANT <5.0 mIU/mL (())
--- NOTE | 2016-07-02 17:14 | PDDCSUM ---
Discharge Summary Discharge Summary: DISCHARGE SUMMARY FOLLOW-UP ITEMS: Further gastrointestinal workup under the direction of Dr. Ely DATE OF ADMISSION: 06/30/2016 DATE OF DISCHARGE: 07/02/2016 DISCHARGE DIAGNOSES: 1. Acute Crohn's disease flare 2. Bipolar disease and suspected borderline personality disorder 3. Suspected severe protein calorie malnutrition CONSULTATIONS: Gastroenterology PROCEDURES / IMAGING: CT of the abdomen demonstrating diffuse inflammation in the colon most notably in the transverse descending and sigmoid colon consistent with Crohn's disease CHIEF COMPLAINT: Acute abdominal pain SUBJECTIVE: Patient reports that she has some ongoing abdominal discomfort as well as generalized weakness and poor oral intake PHYSICAL EXAM ON DISCHARGE: Systolic blood pressure is 110-130, heart rate in the 80s, satting well on room air, objective oral intake of 2.6 L of fluid and 5 nonbloody bowel movements overnight, abdomen is soft mildly tender to moderate palpation, nondistended, bowel sounds are present, patient is thin appearing with a proximal muscle wasting, her affect is widely fluctuating, between tearful, polite, enraged, motor strength is 5/5 bilateral lower extremities LABS ON DISCHARGE: HIV test negative, liver panel unremarkable, potassium 4.1, creatinine 0.7, white blood cell count 9200, hemoglobin 9.8, platelets 680013, hepatitis a and B negative, hepatitis-C virus pending, TB blood test pending, C diff PCR negative HOSPITAL COURSE BY PROBLEM: 1. Acute Crohn's disease flare. Evidenced by abdominal pain with loose bowel movements and diffuse colitis on CT with a known history of Crohn's disease. It should be noted that the patient has not been treated with any biologic agents in the past given her difficulty with medical adherence. She was initiated on high-dose IV steroids and transitioned to prednisone 40 mg daily. She will be tapered on the steroids over the following week down to 20 mg daily by the time that she sees her outpatient celery stripper Dr. Ely. She has also been prescribed mesalamine to be taken 3 times daily and if there is a once daily alternative on the medication formulary, the patient may have more success being adherent to this dosing schedule. Dr. Escobar from Gastroenterology was heavily involved in this patient's care during her hospitalization, and he did recommend outpatient biologic agents once the patient is able to demonstrate medical adherence in the gastroenterology clinic. Patient is at risk for all the side effects from biologic agents and she is not able to demonstrate adherence, then prescribing her such medications could produce serious harm. The patient has been instructed that she needs to follow up with Dr. Ely on in order to consider these treatment options. The patient did continue to express that she was experiencing abdominal pain and nausea which was somewhat improved with the use of the steroids. We have prescribed her a limited supply of Dilaudid and Zofran to be used symptomatically until she is able to follow up with Dr. Ely. 2. Bipolar disease and suspected borderline personality disorder. The patient had evidence of dense mental health issues during this hospitalization with widely fluctuating mood as well as passive threat of harm to self. Her decompensation in the hospital was reported by the patient to be secondary to recently experienced emotional trauma. He may also have been exacerbated by initiation of steroids. Our behavioral health nurse evaluated the patient and concurred with my insertion at the patient was not expressing suicidal ideation and was not a viable threat of harm to self. Consequently she did not require an M1 hold. We were able to obtain a previous record of Dr. Rivera is psychiatry consultation, at that time he had recommended 20 mg of Zyprexa at bedtime. We have recommended re-initiated this to the patient, and she is amenable to this at this time. The patient is overall very suspicious of mental health providers and reports that she does not want to follow up with any mental health provider in the community at this time. Recommended that she try to work with [facility], as many of the barriers she has experienced in obtaining optimal medical care as well as addressing some of her issues regarding polysubstance abuse stem from the challenges she experiences from her underlying personality disorder. The patient did not demonstrate particular insight into these recommendations and she mostly became more inferior lead with the staff when these issues were addressed directly. At the time of her discharge, the patient lingered by saying that she was unable to walk and by making many excuses about why she is unable to care for herself with the perceived secondary gain of being able to remain in the hospital. Given that the patient had no medical indication for remaining hospitalized, and the patient had been witnessed ambulating successfully on the day of discharge, a these expressions were perceived to be purely based on on the intention of secondary gain and the patient was discharged safely under the care of a friend who was able to pick her up via private vehicle and provide her with a place to sleep on the evening of discharge. 3. Suspected severe protein calorie malnutrition. Evidence by proximal muscle wasting with low BMI of 16.1, as well as reports of weight loss and inability to tolerate oral intake. It is unclear how much of this is psychiatrically mediated and how much of this is medical. We recommended increased nourishment and provided her with symptomatic care for nausea and abdominal pain. Our intention was to have her evaluated by our dietary micro[employer] consultant prior to discharge , but the patient's behavior and demands escalated to such a point where the patient would not have a been in a mental placed to receive any such recommendations. DISCHARGE MEDICATIONS: Please see official discharge medication reconciliation sheet in chart , Dilaudid as needed 2 mg tabs, 20 tabs prescribed, Zofran as needed, Zyprexa 20 mg at bedtime, prednisone taper over 1 week, mesalamine 1600 mg 3 times daily. DISCHARGE INSTRUCTIONS: Please follow up with Dr. Ely on 07/10/2016, appointment scheduled. Please follow up with mental health provider at [facility]. TIME SPENT: Greater than 30 minutes were spent on direct patient care, as well as discharge planning and preparation.
== END 2016-07-02 15:37 | disposition home or self-care (01) | DRG 385 ==
LOC: F1N 19:40
PROVIDERS: ADMIT Hospitalist; ATTEND Hospitalist
DX: K50.10 Crohn's disease of large intestine without complications (principal); E43 Unspecified severe protein-calorie malnutrition; Z68.1 Body mass index [BMI] 19.9 or less, adult; F19.10 Other psychoactive substance abuse, uncomplicated; F31.9 Bipolar disorder, unspecified; F60.9 Personality disorder, unspecified; Z72.0 Tobacco use; Z88.0 Allergy status to penicillin
CPT/HCPCS: 80305; 86704-90; 86708-90; 96374; 97161-GP; 97165-GO; J1170; J1650; J2405; J2550; Q9967

== ENCOUNTER 2016-07-12 12:03 | Inpatient (IN) | payer MEDICAID ==
--- NOTE | 2016-07-12 12:19 | EDPHY ---
HPI/HX/ROS/PE/MDM Narrative: CHIEF COMPLAINT: Abdominal pain, Crohn's flare HPI: The patient is a 36 y/o female, with a history of Crohn's disease and mental health diagnoses, complaining of multiple Crohn's flares over the last 2- 3 months with associated anorexia. She was admitted here for two days on 06/30/16 , 12 days ago, with a Crohn's flare and discharged with referrals to GI and mental health. She saw her GI, Dr. Ely, this past week and was started on Bentyl. She is planning to follow up with mental health this week. She has abdominal pain radiating outwards from her umbilicus with recent associated intermittent fever as high as 101F. She reports nonbloody stool. REVIEW OF SYSTEMS: Aside from elements discussed in the HPI, a comprehensive 10-point review of systems was reviewed and is negative. PMH: Crohn's disease, polysubstance abuse, depression, positive for [place] disease gene, suspected bipolar depression, suspected borderline personality disorder, history of C. difficile colitis 1 year ago Prior medical records reviewed including admission 06/30/16 for Crohn's flare. SOCIAL HISTORY: Polysubstance abuse history including opiates, cannabis, and tobacco PHYSICAL EXAM: General:Patient is alert, in no acute distress. Febrile ENT:Eyes are normal to inspection. ENT inspection normal. Neck: Normal inspection. Full range of motion. Respiratory:No respiratory distress. Breath sounds normal bilaterally. Cardiovascular: Tachycardic regular rate and rhythm. Strong peripheral pulses. Normal cap refill. Abdomen:The abdomen has moderate diffuse tenderness to palpation. There are no peritoneal signs. There are normal bowel sounds. Back: Normal to inspection. No tenderness to palpation. Skin: Normal color. No rash. Warm and dry. Extremities: Normal appearance. Full range of motion. Neuro: Oriented x3. Normal motor function. Normal sensory function. ED Course: IV established. Labs drawn including CBC, CHEM, lactate, cultures, bilirubin, PTPTT. Patient meets sepsis criteria. 1L IV NS and 1mg IV Dilaudid administered. 1328: Spoke with hospitalist service. Dr. Dailey accepts admission for Crohn's disease flare and fever. I discussed this plan with patient and she agrees to admission. MDM: Patient's lab values are close to baseline and lactate is normal. I do not think this represents severe sepsis at this point. This patient presents with mild fever and tachycardia in the setting of recent hospitalization for inflammatory bowel flare. She complains of severe abdominal pain, but her history certainly makes it difficult to to assess whether this represents an acute process. No other obvious source for her fever is seen. She requires admission the hospital for further evaluation. Her lactate is normal and there is signs of other end-organ damage, so I do not think this represents severe sepsis or septic shock. - Data Points Laboratory Results: Laboratory Results 07/12/16 12:24 07/12/16 12:24 07/12/16 12:24 WBC 7.96 10^3/uL (3.80-9.50) RBC 3.66 L 10^6/uL (4.18-5.33) Hgb 9.2 L g/dL (12.6-16.3) Hct 27.2 L % (38.0-47.0) MCV 74.3 L fL (81.5-99.8) MCH 25.1 L pg (27.9-34.1) MCHC 33.8 g/dL (32.4-36.7) RDW 17.2 H % (11.5-15.2) Plt Count 514 H 10^3/uL (150-400) MPV 7.6 L fL (8.7-11.7) Neut % (Auto) 74.7 H % (39.3-74.2) Lymph % (Auto) 7.4 L % (15.0-45.0) [place] % (Auto) 14.9 H % (4.5-13.0) Eos % (Auto) 0.9 % (0.6-7.6) Baso % (Auto) 0.5 % (0.3-1.7) Nucleat RBC Rel Count 0.0 % (0.0-0.2) Absolute Neuts (auto) 5.94 10^3/uL (1.70-6.50) Absolute Lymphs (auto) 0.59 L 10^3/uL (1.00-3.00) Absolute Monos (auto) 1.19 H 10^3/uL (0.30-0.80) Absolute Eos (auto) 0.07 10^3/uL (0.03-0.40) Absolute Basos (auto) 0.04 10^3/uL (0.02-0.10) Absolute Nucleated RBC 0.00 10^3/uL (0-0.01) Immature Gran % 1.6 H % (0.0-1.1) Seg Neutrophils % 28 % Band Neutrophils % 52 % Lymphocytes % 7 % Monocytes % 13 % Immature Gran # 0.13 H 10^3/uL (0.00-0.10) Absolute Seg Neuts 2.23 10^/uL (1.70-6.50) Absolute Band Neuts 4.14 H 10^3/uL (0.00-0.70) Absolute Lymphocytes 0.56 L 10^3/uL (1.00-3.00) Absolute Monocytes 1.03 H 10^3/uL (0.30-0.80) Toxic Granulation PRESENT H Toxic Vacuolation PRESENT H Platelet Estimate INCREASED H (ADEQ) Hypochromasia 2+ H Microcytic Cells 2+ H Echinocytes 1+ H PT 14.5 SEC (12.0-15.0) INR 1.14 (0.83-1.16) APTT 27.2 SEC (23.0-38.0) VBG Lactic Acid 1.4 mmol/L (0.7-2.1) Sodium 127 L mEq/L (134-144) Potassium 3.6 mEq/L (3.5-5.2) Chloride 93 L mEq/L (97-110) Carbon Dioxide 26 mEq/l (22-31) Anion Gap 8 mEq/L (8-16) BUN 6 L mg/dL (7-23) Creatinine 0.6 mg/dL (0.6-1.0) Estimated GFR > 60 Glucose 127 H mg/dL (70-100) Calcium 7.5 L mg/dL (8.5-10.4) Total Bilirubin 0.3 mg/dL (0.1-1.4) Medications Given: Discontinued Medications Hydromorphone HCl (Dilaudid) 1 mg IVP EDNOW ONE Stop: 07/12/16 12:40 Last Admin: 07/12/16 12:43 Dose: 1 mg Sodium Chloride (Ns) 1,000 mls @ 0 mls/hr IV ONCE ONE PRN Reason: Wide Open Stop: 07/12/16 13:00 Last Admin: 07/12/16 13:02 Dose: 1,000 mls General Time Seen by Provider: 07/12/16 12:13 Initial Vital Signs: Initial Vital Signs Temperature (C) 39.3 C H 07/12/16 12:06 Heart Rate 135 H 07/12/16 12:06 Respiratory Rate 28 H 07/12/16 12:06 Blood Pressure 111/77 07/12/16 12:06 O2 Sat (%) 93 07/12/16 12:06 O2 Delivery Mode Room Air Allergies/Adverse Reactions: Penicillins Allergy (Unknown, Verified 07/12/16 12:05) Home Medications: Medication Instructions Recorded Mesalamine [Asacol Hd] 1,600 mg PO TID #60 tab.dr 07/02/16 Olanzapine [Zyprexa] 20 mg PO HS #30 tablet 07/02/16 Ondansetron Odt [Zofran Odt 4 mg 4 mg PO Q4HRS PRN #40 tab 07/02/16 (*)] HYDROmorphone HCL [Dilaudid 2 mg 2 - 4 mg PO Q4HRS PRN 07/12/16 (*)] predniSONE 20 mg PO DAILY 07/12/16 Departure - Departure Disposition: [facility] Inpatient Acute Clinical Impression: Crohn disease Qualifiers: Gastrointestinal tract location: unspecified location Digestive disease complication type: without complication Qualifier Code: (K50.90) Crohn's disease , unspecified, without complications Fever Qualifiers: Fever type: other Qualifier Code: (R50.81) Fever presenting with conditions classified elsewhere Condition: Fair Report Scribed for: Cale Rogel Report Scribed by: Katlyn Bo Date of Report: 07/12/16 Time of Report: 12:16 Physician Review and Approval Statement: Portions of this note were transcribed by an ED scribe. I personally performed the history, physical exam, and medical decision making; and confirm the accuracy of the information in the transcribed note.
[2016-07-12 12:32] LABS: % IMMATURE GRANULYOCYTES 1.6 % (0.0-1.1); ABSOLUTE IMMATURE GRANULOCYTES 0.13 10^3/uL (0.00-0.10); ADD DIFF? NO; ADD MORPH? NO; ADD SCAN? YES; ATYPICAL LYMPHOCYTE FLAG 20 (0-99); FRAGMENT RBC FLAG 0 (0-99); HEMATOCRIT 27.2 % (38.0-47.0); HEMOGLOBIN 9.2 g/dL (12.6-16.3); LIPEMIA HEMOLYSIS FLAG 90 (0-99); MEAN CELL HEMOGLOBIN 25.1 pg (27.9-34.1); MEAN CELL HEMOGLOBIN CONCENTR. 33.8 g/dL (32.4-36.7); MEAN CELL VOLUME 74.3 fL (81.5-99.8); MEAN PLATELET VOLUME 7.6 fL (8.7-11.7); PLATELET CLUMPS FLAG 0 (0-99); PLATELET COUNT 514 10^3/uL (150-400); RED BLOOD CELL COUNT 3.66 10^6/uL (4.18-5.33); RED CELL DISTRIBUTION WIDTH 17.2 % (11.5-15.2)
[2016-07-12] MEDS ORDERED: HYDROmorphONE/DILAUDID 1 MG/ML SYR ONE (12:35)
[2016-07-12 12:36] LABS: LEFT SHIFT FLG 300 (0-99)
[2016-07-12] MEDS ORDERED: HYDROmorphONE/DILAUDID 1 MG/ML SYR IVP ONE ×2 (12:39→14:13)
[2016-07-12 12:46] LABS: INR 1.14 (0.83-1.16); PROTIME(PATIENT) 14.5 SEC (12.0-15.0)
[2016-07-12 12:47] LABS: APTT 27.2 SEC (23.0-38.0)
[2016-07-12 12:50] LABS: ANION GAP 8 mEq/L (8-16); BILIRUBIN,TOTAL 0.3 mg/dL (0.1-1.4); CALCIUM 7.5 mg/dL (8.5-10.4); CARBON DIOXIDE 26 mEq/l (22-31); CHLORIDE 93 mEq/L (97-110); CREATININE 0.6 mg/dL (0.6-1.0); GLOMERULAR FILTRATION RATE > 60; GLUCOSE 127 mg/dL (70-100); POTASSIUM 3.6 mEq/L (3.5-5.2); SODIUM 127 mEq/L (134-144)
[2016-07-12] MEDS ORDERED: NS 1,000 ML IV ONE (12:59)
[2016-07-12 13:05] LABS: SCAN POSITIVE
[2016-07-12 13:15] LABS: ECHINOCYTES 1+; HYPOCHROMIA 2+; MICROCYTES 2+; PLATELET ESTIMATE INCREASED (ADEQ); TOXIC GRANULATION PRESENT; TOXIC VACUOLIZATION PRESENT
[2016-07-12] MEDS ORDERED: ACETAMINOPHEN 325 MG TAB PO ONE (13:49)
[2016-07-12 14:18] LABS: COLOR PALE YELLOW; LEUKOCYTE ESTERASE,URINE NEGATIVE (NEGATIVE); NITRITE,URINE NEGATIVE (NEGATIVE)
--- NOTE | 2016-07-12 14:27 | DX ---
PA AND LATERAL CHEST JULY 12, 2016 INDICATION: Fever. COMPARISONS: June 30, 2016 and June 16, 2016. FINDINGS: Lungs are clear. Heart and mediastinum are normal. No consolidation or effusion. Bones and soft tissues are normal for patient's age. IMPRESSION: No pneumonia.
[2016-07-12] MEDS ORDERED: PROMETHAZINE HCL 25 MG/ML INJ IVP PRN (15:14)
[2016-07-12] MEDS ORDERED: ONDANSETRON 4 MG/2 ML VIAL IVP PRN (15:14)
[2016-07-12] MEDS ORDERED: ACETAMINOPHEN 325 MG TAB PO PRN (15:14)
[2016-07-12] MEDS ORDERED: ONDANSETRON DISINTEGRATING 4 MG TAB PO PRN (15:14)
[2016-07-12] MEDS ORDERED: NS 1,000 ML IV SCH (15:15)
--- NOTE | 2016-07-12 16:32 | GHP ---
[f rep st] HISTORY AND PHYSICAL DATE OF ADMISSION: 07/12/2016 CHIEF COMPLAINT: Fever and abdominal pain. HISTORY OF PRESENT ILLNESS: The patient is a 36-year-old female with history of Crohn disease, hepatitis C, malnutrition, and bipolar disorder who presents to the emergency department 10 days after hospital discharge reporting fevers and worsening abdominal pain. She was diagnosed with Crohn disease in 2006 in [place]. Since moving to [place] she is followed by Dr. Ely, gastroenterology. She has not been treated with biologic agents due to her homelessness and issues with compliance. She was admitted to the hospital June 30, 2016, with a suspected acute Crohn flare. She was treated with IV Solu-Medrol and discharged home on oral prednisone with plans to taper. She states she ran out of her prednisone 3 days ago. Her last dose was 20 mg daily. C difficile testing was negative during her recent hospitalization, though she does report a history of C difficile approximately 1 year ago. She reports chronic problems with abdominal pain, diarrhea, and low-grade fevers though over the past few days she has had fevers as high as 103.8 and her abdominal pain has worsened. She localizes her pain to the periumbilical region with some radiation to the left lower quadrant. She reports occasional nausea and vomiting and up to 15 diarrheal stools per day. She denies hematochezia or melanotic stools. She denies hematemesis. She just saw her skin peeling machine operator 2 days prior to admission and was started on mesalamine. In the emergency department, she was normotensive on arrival though tachycardic with a heart rate of 135. After a liter of IV fluid and 2 mg of IV Dilaudid, her heart rate has normalized to 62. Her temperature on arrival was 39.3. She is currently afebrile but has persistent pain. She is admitted to the hospital for further management. PAST MEDICAL HISTORY: 1. Crohn disease diagnosed in 2006 followed locally by skin peeling machine operator Dr. Ely. 2. History of polysubstance abuse including opiates, cannabis, and tobacco. 3. Hepatitis C with a recent viral load of 4,660,551. 4. Depression versus possible bipolar disorder.. 5. Presence of [place] disease gene. 6. Suspected borderline personality disorder. 7. Chronic anemia. MEDICATIONS: Please see [employer] for complete updated outpatient medication list. ALLERGIES: Penicillin. REVIEW OF SYSTEMS: A 10-point review of systems was performed and is negative except as per HPI. SOCIAL HISTORY: The patient is homeless and is currently couch surfing. She reports occasional tobacco use. She denies alcohol use. She uses marijuana daily. Denies other drug use. FAMILY HISTORY: The patient was adopted, but she reports her mother had [place] chorea. OBJECTIVE: VITAL SIGNS: Temperature on arrival of 39.3, blood pressure 111/77 , heart rate 135, which is now 62, respiratory rate on arrival 28 but is now 16. She is 96% on room air. GENERAL: The patient is cachectic appearing, awake, alert and oriented in no acute distress. HEENT: Head is atraumatic, normocephalic. Pupils equal, round, and react to light. Extraocular muscles intact. Oropharynx is clear. Mucous membranes are moist. NECK: Supple. There is no JVD. HEART: Regular rate and rhythm. LUNGS: Clear to auscultation bilaterally. ABDOMEN: Soft. Her abdomen is mildly scaphoid. She has periumbilical and left lower quadrant tenderness to palpation, tympanitic to percussion. There is no rebound, rigidity, or peritoneal sign. EXTREMITIES: Without cyanosis, clubbing, or edema. NEUROLOGIC: Grossly nonfocal. LABORATORY DATA: CBC reveals normal white blood cell count of 7.9, hemoglobin 9.2, platelets 514 which is down from 581 on July 02. Her absolute band count is 4 though this is down from 8 on July 01. INR is 1.1. Lactic acid is normal at 1.4. Basic metabolic panel reveals sodium 127, potassium 3.6 , chloride 93, BUN 6, creatinine 0.6, blood sugar 127. Urinalysis is negative. ASSESSMENT/PLAN: The patient is a 36-year-old female who presents to the hospital with fever and abdominal pain. 1. Fever and abdominal pain likely secondary to acute Crohn's flare. The patient does not have septic physiology with a normal white count, normal lactate, and normal blood pressure. Given her significant fevers and abdominal pain, I will check a CT scan with contrast to rule out an abscess or any other intra-abdominal source of infection. Given her history of C diff and presentation, I am going to cover her with IV Flagyl until we have a negative Clostridium difficile result. A GI pathogen panel is ordered. Once I have confirmed there is no abscess on her CT, I will start her on IV Solu-Medrol 40 mg q.8 hours. GI was consulted. I discussed the case Dr. Evans and they will see the patient tomorrow. We will proceed with pain control and IV fluid resuscitation. 3. Hyponatremia, I suspect hypovolemic hyponatremia. We will check a urine sodium and urine osmolality for further evaluation. She does need IV fluids so we will treat with normal saline overnight and recheck this in the morning. 4. Chronic anemia. It has been several years since she has had iron studies so I will check a serum iron and TIBC and going to defer a ferritin as this may be elevated as an acute phase reactant, which I suspect is the reason for her elevated platelet count. At this point, her hemoglobin is stable and she has no evidence of active blood loss. We will continue to trend this and should it drop below 7, will transfuse. 5. Hepatitis C. It is unclear if this is a new diagnosis. She had a viral load performed on July 01, 2016. GI has been consulted and can hopefully weigh in on this as well. 6. Severe protein-calorie malnutrition. She is underweight at 44 kg. Dietary consult is requested. I will check a pre-albumin for the morning. 7. History of depression versus bipolar disorder with possible borderline personality disorder. She has been referred to [facility] in the outpatient setting. Her mood is currently stable. We will continue her q.h.s. Zyprexa. 8. DVT prophylaxis. The patient is low risk. We will place SCDs for now. Should she require prolonged hospitalization, we will reconsider Lovenox. 9. Code status: The patient is full code. 10. Disposition. The patient is admitted to inpatient status and will likely require greater than 48 hours hospitalization for ongoing management of her acute Crohn flare. /[id number]/MODL MTDD
[2016-07-12] MEDS: NS W/ 20 KCl/L 1,000 ML IV SCH (16:37)
[2016-07-12] MEDS: MESALAMINE 800 MG TAB.DR PO SCH ×2 (16:44→21:40)
[2016-07-12] MEDS: oxyCODONE IR 5 MG TAB PO PRN ×2 (16:44→21:39)
[2016-07-12] MEDS ORDERED: IOPAMIDOL (ISOVUE-300) 100 ML BTL IV ONE ×2 (18:05→18:22)
--- NOTE | 2016-07-12 19:11 | HOSPPROG ---
Hospitalist Progress Note Assessment/Plan: Update to H&P: Received call from Radiology. CT read as colitis and small bowel intussuception. I discussed the case with Dr. Hallman, general surgeon, who will review scan and evaluate pt. Appreciate his assistance. Objective: Vital Signs Temp Pulse Resp BP Pulse Ox 37.9 C 62 16 114/78 96 07/12/16 15:07 07/12/16 15:07 07/12/16 15:07 07/12/16 15:07 07/12/16 15:07 Microbiology 07/12/16 17:20 Gastrointestinal Tract Panel (PCR) - Final Stool No Organisms Detected 07/11/16 07/12/16 07/13/16 05:59 05:59 05:59 Intake Total 1000 Output Total 575 Balance 425 PT 14.5 SEC (12.0-15.0) 07/12/16 12:24 INR 1.14 (0.83-1.16) 07/12/16 12:24 ICD10 Worksheet Patient Problems: Problems Problem Status Diagnosed Crohn disease Acute Fever Acute Abdominal pain Acute Anxiety attack Acute Depression - Depressive disorder Acute Personality disorder Acute Restless leg syndrome Acute Anemia Chronic Polysubstance dependence Chronic Suicidal thoughts Chronic Ulcerative colitis, acute Chronic
--- NOTE | 2016-07-12 19:23 | CT ---
CT Scan of the Abdomen and Pelvis (With Contrast) July 12, 2016 at 1840 Hours History: Abdominal pain, history of inflammatory bowel disease. Comparison: Prior CTs, the most recent June 30, 2016. Technique: Axial computed tomographic images of the abdomen and pelvis were obtained with the unevent ful intravenous administration of 75 mL Isovue-300 contrast. No oral or rectal contrast which limits the study. Dose reduction techniques were utilized. CT Abdomen Findings Lung bases: Normal. Liver: Normal. Biliary system: No obstruction. Spleen: Normal. Pancreas: Normal. Adrenals: Normal. Kidneys: No obstruction or solid masses. Abdominal aorta: No aneurysm. Worsening diffuse thickening of the colon, especially the transverse, descending, and rectosigmoid co juan miguel consistent with diffuse colitis. No definite inflammatory changes of the small bowel. However, th ere is a small bowel-small bowel intussusception in the left midabdomen, identified on image 31 of se henry 3. Large amount of stool in the right colon. No evidence of appendicitis. Oral contrast througho ut the small bowel, including past the intussusception into the terminal ileum region without distent ion or obstruction. CT Pelvis Findings: Colitis involving ileocecal and proximal colon, also without adjacent focal fluid collection or abscess. No adnexal masses. Impressions: 1. Worsening diffuse colitis involving the transverse, descending, and rectosigmoid colon which may r epresent inflammatory bowel disease or infectious/inflammatory nonspecific colitis. Consider colonosc opy evaluation. 2. No drainable abscess, pneumoperitoneum, or free air. 3. Small bowel intussusception in the left midabdomen. 4. Large amount of stool in the ascending colon. Findings and recommendations discussed with Dr. Karley Dailey at 1900 hours today.
[2016-07-12] MEDS: HYDROmorphONE/DILAUDID 1 MG/ML SYR IVP PRN ×2 (19:32→23:40)
[2016-07-12 20:15] LABS: ALANINE AMINOTRANSFERASE 26 IU/L (9-52); ALKALINE PHOSPHATASE 65 IU/L (38-126); ASPARTATE AMINOTRANSFERASE 11 IU/L (14-46); BILIRUBIN,TOTAL 0.6 mg/dL (0.1-1.4); BILIRUBIN-CONJUGATED 0.6 mg/dL (0.0-0.5)
[2016-07-12 20:26] LABS: PREALBUMIN 4.8 mg/dL (17.6-36.0); TOTAL IRON BINDING CAPACITY 159 ug/dL (260-490)
[2016-07-12 20:40] LABS: % SATURATION 6 % (20-55); IRON < 10.1 mcg/dL (37-170)
[2016-07-12] MEDS: methylPREDNISolone SOD SUCC 40 MG/ML VIAL IVP SCH ×2 (21:34→21:40)
[2016-07-12] MEDS: OLANZapine 2.5 MG TAB PO SCH (21:40)
[2016-07-12] MEDS: PROMETHAZINE HCL 25 MG TAB PO PRN (21:47)
[2016-07-13] MEDS: oxyCODONE IR 5 MG TAB PO PRN ×3 (02:39→22:28)
[2016-07-13] MEDS: HYDROmorphONE/DILAUDID 1 MG/ML SYR IVP PRN (03:50)
[2016-07-13] MEDS: methylPREDNISolone SOD SUCC 40 MG/ML VIAL IVP SCH ×3 (05:18→21:27)
[2016-07-13 05:24] LABS: % IMMATURE GRANULYOCYTES 1.7 % (0.0-1.1); ABSOLUTE IMMATURE GRANULOCYTES 0.12 10^3/uL (0.00-0.10); ADD DIFF? NO; ADD MORPH? NO; ADD SCAN? YES; ATYPICAL LYMPHOCYTE FLAG 20 (0-99); FRAGMENT RBC FLAG 0 (0-99); HEMATOCRIT 27.5 % (38.0-47.0); HEMOGLOBIN 8.8 g/dL (12.6-16.3); LIPEMIA HEMOLYSIS FLAG 80 (0-99); MEAN CELL HEMOGLOBIN 24.5 pg (27.9-34.1); MEAN CELL VOLUME 76.6 fL (81.5-99.8); MEAN PLATELET VOLUME 7.6 fL (8.7-11.7); PLATELET CLUMPS FLAG 10 (0-99); PLATELET COUNT 497 10^3/uL (150-400); RED BLOOD CELL COUNT 3.59 10^6/uL (4.18-5.33); RED CELL DISTRIBUTION WIDTH 17.6 % (11.5-15.2)
[2016-07-13 05:32] LABS: LEFT SHIFT FLG 300 (0-99)
[2016-07-13 05:43] LABS: ANION GAP 7 mEq/L (8-16); CALCIUM 6.8 mg/dL (8.5-10.4); CARBON DIOXIDE 25 mEq/l (22-31); CHLORIDE 102 mEq/L (97-110); CREATININE 0.5 mg/dL (0.6-1.0); GLOMERULAR FILTRATION RATE > 60; GLUCOSE 131 mg/dL (70-100); POTASSIUM 3.5 mEq/L (3.5-5.2); SODIUM 134 mEq/L (134-144)
[2016-07-13 06:09] LABS: SCAN POSITIVE
[2016-07-13 06:21] LABS: MICROCYTES 1+; POLYCHROMASIA 1+
[2016-07-13 06:22] LABS: ACANTHOCYTES 1+; HYPOCHROMIA 2+
[2016-07-13 06:23] LABS: PLATELET ESTIMATE INCREASED (ADEQ); SCHISTOCYTES 1+
[2016-07-13 06:24] LABS: TOXIC GRANULATION PRESENT
[2016-07-13] MEDS: MESALAMINE 800 MG TAB.DR PO SCH (07:05)
[2016-07-13] MEDS ORDERED: POTASSIUM CL 20 MEQ TAB PO ONE (08:31)
[2016-07-13] MEDS: NS W/ 20 KCl/L 1,000 ML IV SCH ×2 (09:50→18:05)
[2016-07-13] MEDS: PROMETHAZINE HCL 25 MG TAB PO PRN (09:51)
--- NOTE | 2016-07-13 09:52 | SOAPPROG ---
SOAP Progress Note Assessment/Plan: Assessment: 36yo female with multiple medical problems, admitted for ab pain/crohn's flair pain improved, very hungry, tolerated entire tray of clears this AM, passing small amount of flatus PE awake alert, comfortable chest CTA B/L abdomen mild distension, small umbilical hernia soft nontender, bowel sounds upon auscultation Plan: regular diet will discuss with Dr Hallman 07/13/16 09:49 Objective: Vital Signs Temp Pulse Resp BP Pulse Ox 36.2 C 91 16 106/86 H 95 07/13/16 07:15 07/13/16 07:15 07/13/16 07:15 07/13/16 07:15 07/13/16 07:15 Microbiology 07/12/16 17:20 Gastrointestinal Tract Panel (PCR) - Final Stool No Organisms Detected Laboratory Results 07/13/16 05:08 07/13/16 05:08 07/12/16 07/13/16 07/14/16 05:59 05:59 05:59 Intake Total 2173 Output Total 2024 Balance 148 PT 14.5 SEC (12.0-15.0) 07/12/16 12:24 INR 1.14 (0.83-1.16) 07/12/16 12:24 ICD10 Worksheet Patient Problems: Problems Problem Status Diagnosed Crohn disease Acute Fever Acute Abdominal pain Acute Anxiety attack Acute Depression - Depressive disorder Acute Personality disorder Acute Restless leg syndrome Acute Anemia Chronic Polysubstance dependence Chronic Suicidal thoughts Chronic Ulcerative colitis, acute Chronic
[2016-07-13] MEDS: HYDROmorphONE/DILAUDID 4 MG TAB PO PRN ×3 (11:20→21:36)
[2016-07-13] MEDS: LORazepam 0.5 MG TAB PO PRN ×2 (11:53→21:36)
--- NOTE | 2016-07-13 12:20 | GCON ---
[f rep st] CONSULTATION DATE OF CONSULTATION: 07/13/2016 REFERRING PHYSICIAN: Karley Dailey MD CHIEF COMPLAINT: Abdominal pain, fever. HISTORY OF PRESENT ILLNESS: I am asked to see this patient in consultation by Dr. Dailey for chief complaint of abdominal pain and fever. She is an unfortunate 36-year-old with history of Crohn's, recently seen by my partner, Dr. Escobar, in the hospital 3 weeks ago, and also with Dr. Ely on Wednesday. She has a long history of Crohn's since 2006, but has been noncompliant with medications for multiple reasons, including poor insurance coverage and psychosocial issues. She was admitted the second week in June with similar symptoms, responded to Solu-Medrol, and was placed on prednisone taper. She was seen on Wednesday. It was recommended she consider biologic therapy, and Dr. Ely is working with [employer] and Medicaid to get this covered, although she has not started this yet. She is having worsening symptoms with increasing diarrhea , over a dozen a day, associated with abdominal pain and fevers at home. She was admitted last night with CT scan that showed no abscess, although worsening colitis, started on Solu-Medrol, and has noted improvement, although still having diarrhea. There has been no significant blood. Refer to Dr. Escobar's consult note on June 30 for further details. ALLERGIES: Penicillin. MEDICATIONS: On presentation, was on prednisone, ondansetron, mesalamine ( although she states she was not taking the mesalamine due to cost), and Dilaudid. PAST MEDICAL HISTORY: Crohn disease of small bowel and large bowel, diagnosed in 2006. Polysubstance abuse, hepatitis C, depression and bipolar disease, presence of [place] disease gene, borderline personality disorder, chronic anemia. SOCIAL HISTORY: Notable for polysubstance abuse. FAMILY HISTORY: Patient was adopted, but reports that her mother had [place] chorea. REVIEW OF SYSTEMS: Review of 10 systems, including general, psych, HEENT, cardiovascular, pulmonary, renal, hematologic, musculoskeletal, derm, neurologic discussed and otherwise negative except as noted above. PHYSICAL EXAMINATION: VITAL SIGNS: She had temperature last night to 38, now she is 36.2. BP 106/86, pulse 91. HEENT: PERRLA. EOMI: No scleral icterus. Oropharynx is normal. NECK: Supple without lymphadenopathy. No thyromegaly. CARDIAC: Regular rate and rhythm. S1, S2 normal. PMI in normal location. CHEST: Clear to auscultation, bilateral chest excursion. ABDOMEN: Distended with an umbilical hernia, but no rebound. EXTREMITIES: Normal. NEUROLOGIC: Grossly nonfocal. LABORATORY DATA: CT scan of the abdomen shows worsening colitis involving the ileocecal valve and much of the colon. There is no abscess. Possible small bowel intussusception but not obstruction. There is stool in the ascending colon. White count today is 7.27, hematocrit 27.5 and stable, with an MCV of 76.6, platelets 497. Coags are normal. BUN and creatinine are normal. LFTs are within normal limits with total bilirubin 0.6, alkaline phosphatase 65, AST 11, ALT 26, beta hCG is negative. ASSESSMENT: Crohn's flare with poor access to medicines due to her insurance and psychosocial issues. However, Dr. Ely is working on obtaining Humira for this patient, which I think would be medically appropriate. For now, the patient is responding to Solu-Medrol. Her temperature is better, and her abdominal pain is better. PLAN: Will continue Solu-Medrol until clinically improved, then plan to place back on a prednisone taper and follow up hopefully to obtain Humira for more definitive treatment. We will check a C difficile and stool studies which are pending. I do recommend we hold her mesalamine for now, as she was not able to obtain that as an outpatient and sometimes this can worsen diarrhea. Will follow. Surgery has seen patient. Thanks for this consult. /[id number]/MODL MTDD
--- NOTE | 2016-07-13 13:53 | HOSPPROG ---
Hospitalist Progress Note Assessment/Plan: Crohn's flare - Much improved from yesterday. Diarrhea seems to have resolved today. GI pathogen panel neg. CT read as possibly intussuception, surgery evaluated and non-surgical. Continue IV Solumedrol. May be able to change to oral Prednisone tomorrow. Outpt GI working on arranging for her to begin Humira. Severe protein malnutrition - dietary consult Hyponatremia - resolved with NS Anemia - likely ACD, stable. Hep C - outpt f/u with GI Depression - cont outpt meds. Mood stable here. DVT PPLX - Lovenox Full code Dispo - cont inpt Subjective: Pt feels much better today. Still having pain, but no diarrhea today. No fevers. Tolerating po. Objective: Vital Signs Temp Pulse Resp BP Pulse Ox 36.2 C 99 18 114/67 98 07/13/16 07:15 07/13/16 12:00 07/13/16 12:00 07/13/16 12:00 07/13/16 12:00 Microbiology 07/12/16 17:20 Gastrointestinal Tract Panel (PCR) - Final Stool No Organisms Detected Laboratory Results 07/13/16 05:08 07/13/16 05:08 07/12/16 07/13/16 07/14/16 05:59 05:59 05:59 Intake Total 2173 500 Output Total 2024 Balance 148 500 PT 14.5 SEC (12.0-15.0) 07/12/16 12:24 INR 1.14 (0.83-1.16) 07/12/16 12:24 - Physical Exam Constitutional: no apparent distress Eyes: PERRL Ears, Nose, Mouth, Throat: moist mucous membranes Cardiovascular: regular rate and rhythym Respiratory: no respiratory distress Gastrointestinal: normoactive bowel sounds, other (minimal tenderness, no r/r/g , mild distention, +tympanitic) Skin: warm Musculoskeletal: full muscle strength Neurologic: AAOx3 Psychiatric: interacting appropriately ICD10 Worksheet Patient Problems: Problems Problem Status Diagnosed Crohn disease Acute Fever Acute Abdominal pain Acute Anxiety attack Acute Depression - Depressive disorder Acute Personality disorder Acute Restless leg syndrome Acute Anemia Chronic Polysubstance dependence Chronic Suicidal thoughts Chronic Ulcerative colitis, acute Chronic
[2016-07-13 19:43] VITALS: RESP 16
[2016-07-13] MEDS: OLANZapine 2.5 MG TAB PO SCH (21:27)
[2016-07-13] MEDS ORDERED: CALCIUM CARBONATE 500 MG CHEWABLE TAB PO PRN (22:00)
[2016-07-14] MEDS: HYDROmorphONE/DILAUDID 4 MG TAB PO PRN ×3 (01:45→08:58)
[2016-07-14] MEDS: NS W/ 20 KCl/L 1,000 ML IV SCH (02:12)
[2016-07-14] MEDS: oxyCODONE IR 5 MG TAB PO PRN ×2 (02:17→08:20)
[2016-07-14] MEDS: methylPREDNISolone SOD SUCC 40 MG/ML VIAL IVP SCH (05:57)
[2016-07-14 06:07] LABS: ANION GAP 5 mEq/L (8-16); CALCIUM 7.3 mg/dL (8.5-10.4); CARBON DIOXIDE 25 mEq/l (22-31); CHLORIDE 107 mEq/L (97-110); CREATININE 0.5 mg/dL (0.6-1.0); GLOMERULAR FILTRATION RATE > 60; GLUCOSE 150 mg/dL (70-100); POTASSIUM 4.4 mEq/L (3.5-5.2); SODIUM 137 mEq/L (134-144)
[2016-07-14] MEDS ORDERED: methylPREDNISolone SOD SUCC 40 MG/ML VIAL IVP SCH (09:00)
[2016-07-14] MEDS: LORazepam 0.5 MG TAB PO PRN (09:01)
--- NOTE | 2016-07-14 11:06 | SOAPPROG ---
SOAP Progress Note Assessment/Plan: Assessment: Abd pain much improved Diarrhea better Crohn's disease responding to steroids Plan: OK to change to PO Prednisone Advance diet to low fiber diet as tolerated Can d/c home when tolerating PO's Follow up with GI for possible Humira 07/14/16 11:03 Subjective: CC Abd pain Overall less pain and diarrhea tolerating liquids wants to advance diet Objective: Vital Signs Temp Pulse Resp BP Pulse Ox 36.4 C 114 H 16 133/85 H 92 07/14/16 08:00 07/14/16 08:00 07/14/16 08:00 07/14/16 08:00 07/14/16 08:00 Laboratory Results 07/13/16 05:08 07/14/16 05:08 07/13/16 07/14/16 07/15/16 05:59 05:59 05:59 Intake Total 2173 2964 Output Total 2025 Balance 148 2964 PT 14.5 SEC (12.0-15.0) 07/12/16 12:24 INR 1.14 (0.83-1.16) 07/12/16 12:24 Physical Exam - Physical Exam General Appearance: alert, no apparent distress Respiratory: lungs clear, normal breath sounds Cardiac/Chest: regular rate, rhythm, No diastolic murmur Abdomen: non-tender, soft ICD10 Worksheet Patient Problems: Problems Problem Status Diagnosed Crohn disease Acute Fever Acute Abdominal pain Acute Anxiety attack Acute Depression - Depressive disorder Acute Personality disorder Acute Restless leg syndrome Acute Anemia Chronic Polysubstance dependence Chronic Suicidal thoughts Chronic Ulcerative colitis, acute Chronic
[2016-07-14 11:42] VITALS: BP 112/71; PULSE 111; TEMP 98.1; O2SAT 96
--- NOTE | 2016-07-15 06:22 | GDS ---
[f rep st] DISCHARGE SUMMARY DISCHARGE DIAGNOSES: 1. Acute Crohn's flare. 2. Protein calorie malnutrition. 3. Hyponatremia, resolved. 4. Chronic anemia. 5. Hepatitis C. 6. Depression versus bipolar disorder. CONSULTANTS: Dr. Alyssa Evans, Gastroenterology. HISTORY: For details please see dictated History and Physical dated July 12. In brief, the patie joby is a 36-year-old female with a history of Crohn disease and hepatitis C who presented to the emerg ency department 10 days after hospital discharge with fevers and worsening abdominal pain. She was a dmitted to the hospital for further management. HOSPITAL COURSE: The patient was admitted to the medical-surgical unit. She received IV fluid resus citation. The abdominal CT performed in the emergency department revealed worsening diffuse colitis consistent with her inflammatory bowel disease. There was also some question of a small bowel intuss usception for which a General Surgery consultation was obtained. I discussed the case with Dr. Hallman who did not deem this to be an operative issue. The patient was started on IV Solu-Medrol and her s ymptoms dramatically improved. Her diarrhea resolved and she felt well enough to discharge home. Cl ostridium difficile was negative. DISPOSITION: Patient is discharged home in stable condition. FOLLOWUP: 1. Dr. Maggie Ely, Gastroenterology, who is arranging for initiation of Humira treatment in the out patient setting. 2. Primary care provider as needed. DISCHARGE MEDICATIONS: Please see [email or web address] for complete updated outpatient medication list. She is to continue all outpatient medications as prescribed. Discontinued medications include mesalamine w hich the patient is unable to afford. will not be discontinued. New medications on discharge include: 1. Dilaudid 4 mg p.o. q.6 hours p.r.n., #10, no refills. The patient was advised this is for short term use only. 2. Prednisone 60 mg p.o. daily for 3 days, followed by a taper which is to reduce the dose by 10 mg every 3 days until she is down to 10 mg a day which she will continue until she follows up with her g astroenterologist. /[id number]/MODL
== END 2016-07-14 13:51 | disposition home or self-care (01) | DRG 386 ==
LOC: F3E 14:44 → OBSVTOIN 15:50 → F3E 07-13 08:15
PROVIDERS: ADMIT Hospitalist; ATTEND Hospitalist
DX: K50.90 Crohn's disease, unspecified, without complications (principal); E46 Unspecified protein-calorie malnutrition; E87.1 Hypo-osmolality and hyponatremia; B19.20 Unspecified viral hepatitis C without hepatic coma; D53.9 Nutritional anemia, unspecified; Z59.0 Homelessness; F12.10 Cannabis abuse, uncomplicated; F11.10 Opioid abuse, uncomplicated; F17.210 Nicotine dependence, cigarettes, uncomplicated
CPT/HCPCS: 84134-90; 96374; J1170; J2550; Q9967

== ENCOUNTER 2016-07-18 06:17 | Observation (INO) | payer MEDICAID ==
--- NOTE | 2016-07-18 07:05 | EDPHY ---
H & P Stated Complaint: bilat lower extrem swelling; ST Time Seen by Provider: 07/18/16 07:03 HPI/ROS: CHIEF COMPLAINT: Sore throat, Crohn's flair. HISTORY OF PRESENT ILLNESS: This patient is a 36 year old female, with a history of Crohn's disease, presenting with a 1.5 week history of sore throat. It is associated with fever up to 102 degrees Fahrenheit intermittently since then. Sore throat is progressively worsening. The patient also complains that her Crohn's disease is flaring, presenting with diarrhea and abdominal pain. The abdominal pain is localized periumbilically, moderate in severity. She recently established care with Dr. Ely, gastroenterology, five days ago in [place]. She ran out of Asacol last night. She has taken 20mg Prednisone daily x 1 month. The patient was admitted to the hospital 07/12/16-07/14/16 after an acute Crohn's flair. Denies history of abdominal surgeries. REVIEW OF SYSTEMS: Aside from elements discussed in the HPI, a comprehensive 10-point review of systems was reviewed and is negative, with exception of intermittent bilateral lower extremity edema. The edema worsens during the day while on her feet, improves laying down at night. She denies cardiac history. PAST MEDICAL HISTORY: Crohn's disease, hepatitis C, depression vs. bipolar disorder, presence of [place] disease gene, chronic anemia, suspected borderline personality disorder, history of polysubstance abuse including opiates, cannabis, and tobacco SOCIAL HISTORY: Smokes cigarettes occasionally and marijuana daily, history of polysubstance abuse, denies alcohol use VITAL SIGNS: Reviewed by me GENERAL: Thin, nearly cachectic, mildly uncomfortable appearing, in no respiratory distress. HEENT: Atraumatic. Eyes: No icterus, no injection. Mouth: moist mucous membranes. Adherent white plaquing on the hard palate, soft palate, and tongue consistent with thrush. Mild-moderate erythema. Neck: supple with no adenopathy. LUNGS: Coarse breath sounds with faint wheezes. CARDIAC: Tachycardic and regular, no rubs, murmurs or gallops. ABDOMEN: Soft, distended, diffusely tender, no guarding or rebound, bowel sounds normal. RECTAL: Multiple external hemorrhoids, faint pink mucous on the glove. BACK: Bilateral flank tenderness. EXTREMITIES: No trauma. Mild lower leg "doughy" edema bilaterally consistent with prednisone use, no calf tenderness. Range of motion is normal throughout. NEURO: Alert and oriented, grossly nonfocal. SKIN: Warm and dry, no rash. PSYCHIATRIC: Normal mentation, no agitation. Portions of this note were transcribed by a medical office supervisor. I personally performed a history, physical exam, medical decision making, and confirmed accuracy of information the transcribed note. Source: Patient Exam Limitations: No limitations - Personal History LMP (Females 10-55): Over 28 Days Ago Current Tetanus/Diphtheria Vaccine: No - Medical/Surgical History Hx Asthma: No Hx Chronic Respiratory Disease: No Hx Diabetes: No Hx Cardiac Disease: No Hx Renal Disease: No Hx Cirrhosis: No Hx Alcoholism: No Hx HIV/AIDS: No Hx Splenectomy or Spleen Trauma: No Other PMH: CROHN'S DISEASE, Colitis, HUNINGTON'S DISEASE, cane for ambulation due to arthritis (RA), Hep C. Dentures upper only. - Social History Smoking Status: Light smoker Constitutional: Initial Vital Signs Temperature (C) 37.1 C 07/18/16 06:20 Heart Rate 112 H 07/18/16 06:20 Respiratory Rate 16 07/18/16 06:20 Blood Pressure 117/70 07/18/16 06:20 O2 Sat (%) 96 07/18/16 06:20 O2 Delivery Mode Room Air Allergies/Adverse Reactions: Penicillins Allergy (Unknown, Verified 07/12/16 12:05) Home Medications: Medication Instructions Recorded Ascorbic Acid [Vitamin C 500 mg 500 - 1,000 mg PO DAILY 07/18/16 (*)] Acetaminophen [Tylenol 325mg (*)] 650 mg PO Q4HRS PRN #0 tab 07/19/16 Dicyclomine [Bentyl 10 MG (*)] 10 mg PO BID #60 cap 07/19/16 HYDROmorphone HCL [Dilaudid 4 mg 4 mg PO Q4HRS PRN #10 tab 07/19/16 (*)] Ibuprofen [Motrin (*)] 600 mg PO Q6HRS PRN #0 tab 07/19/16 Mesalamine 1,600 mg PO TID #180 tablet. 07/19/16 Olanzapine [Zyprexa] 20 mg PO HS #30 tablet 07/19/16 Ondansetron Odt [Zofran Odt 4 mg 4 mg PO Q4HRS PRN #40 tab 07/19/16 (*)] Phenylephrine/Shk Lv/Mo/Pet,Wh 1 octavia MD TID PRN #0 oint 07/19/16 [Preparation H Oint] predniSONE 10 mg PO DAILY #20 tab 07/19/16 Medical Decision Making - Diagnostics Imaging: Study: 3 view abdomen X-ray Indication: Abdominal pain, distention Results: I viewed the images myself on the PACS system. My interpretation of the images is: Nonspecific bowel gas pattern, moderate amount of stool. The radiologist interpretation is pending at the time of this dictation. ED Course/Re-evaluation: Recent admission for Crohn's flair, 07/12-07/14/16. H&P and discharge summary reviewed. Consult was made by Dr. Evans at that time. An IV has been established. 1mg IV Dilaudid, 4mg IV Zofran, 6.25mg IV Phenergan , and IV normal saline administered for pain and nausea relief. 3 view abdomen XR and blood work ordered. X-ray demonstrate non-specific gas pattern. Hgb and Hct is lower than baseline, with Hct of 23. Denies bloody stool. Rectal exam with small amount of pink mucous on glove but occult negative. The patient complains of continued symptoms. Will plan to admit the patient to the hospitalist for acute flair of Crohn's disease. Afebrile here, HR improved with fluids. Asacol given as well as steroids. 0930: I consulted with the hospitalist service. Dr. Celaya accepts admission. Differential Diagnosis: Differential diagnoses for the patient's symptom complex was considered including but not limited to bowel obstruction, flare of crohns disease, toxic megacolon, intraabdominal abscess, perforation, UTI, appendicitis, gi hemorrhage , gastroenteritis, abdominal thrush. Consult/Admit Bed Type: Dr Celaya, [facility] - Data Points Laboratory Results: Laboratory Results 07/18/16 07:37 07/18/16 07:37 Microbiology Results: MICROBIOLOGY 07/18/16 07:37 Blood Blood Culture - Preliminary Medications Given: Discontinued Medications Ascorbic Acid (Vitamin C) 500 - 1,000 mg PO DAILY MAMADOU Stop: 01/15/17 08:59 Last Admin: 07/19/16 08:09 Dose: 500 mg Dicyclomine HCl (Bentyl) 10 mg PO BID MAMADOU Stop: 01/14/17 20:59 Last Admin: 07/19/16 08:08 Dose: 10 mg Enoxaparin Sodium (Lovenox) 40 mg SC DAILY MAMADOU Stop: 01/15/17 08:59 Last Admin: 07/19/16 09:49 Dose: Not Given Haloperidol (Haldol) 0.5 - 2.5 mg PO Q6HRS PRN PRN Reason: Anxiety Stop: 01/14/17 14:13 Last Admin: 07/19/16 08:07 Dose: 2.5 mg Hydromorphone HCl (Dilaudid) 1 mg IVP EDNOW ONE Stop: 07/18/16 07:22 Last Admin: 07/18/16 07:48 Dose: 1 mg Hydromorphone HCl (Dilaudid) 1 mg IVP EDNOW ONE Stop: 07/18/16 09:49 Last Admin: 07/18/16 10:11 Dose: 1 mg Hydromorphone HCl (Dilaudid) 2 - 4 mg PO Q4HRS PRN PRN Reason: Pain, Severe Able to Take PO Stop: 07/28/16 13:01 Last Admin: 07/19/16 10:38 Dose: 4 mg Sodium Chloride (Ns) 1,000 mls @ 0 mls/hr IV ONCE ONE PRN Reason: Wide Open Stop: 07/18/16 07:22 Last Admin: 07/18/16 07:50 Dose: 1,000 mls Sodium Chloride (Ns) 1,000 mls @ 0 mls/hr IV ONCE ONE PRN Reason: Wide Open Stop: 07/18/16 09:48 Last Admin: 07/18/16 10:11 Dose: 1,000 mls Potassium Chloride/Sodium Chloride (Ns W/ 20 Kcl/L) 1,000 mls @ 100 mls/hr IV CONT MAMADOU Stop: 01/14/17 13:14 Last Admin: 07/18/16 15:42 Dose: 1,000 mls Ferric Sodium Gluconate Complex 125 mg/ Sodium Chloride 110 mls @ 110 mls/hr IV ONCE ONE Stop: 07/19/16 09:46 Last Admin: 07/19/16 09:47 Dose: 110 mls Ibuprofen (Motrin) 600 mg PO Q6HRS PRN PRN Reason: Pain, Inflammatory Stop: 01/14/17 13:01 Last Admin: 07/19/16 02:05 Dose: 600 mg Mesalamine (Asacol Hd) 1,600 mg PO TID [facility] Stop: 01/14/17 09:59 Last Admin: 07/19/16 08:09 Dose: 1,600 mg Methylprednisolone Sodium Succinate (Solu-Medrol) 125 mg IVP EDNOW ONE Stop: 07/18/16 09:49 Last Admin: 07/18/16 10:11 Dose: 125 mg Nystatin (Mycostatin Oral Liquid) 500,000 unit PO QID [facility] PRN Reason: Protocol Stop: 08/17/16 16:59 Last Admin: 07/19/16 11:32 Dose: 500,000 unit Olanzapine (Zyprexa Zydis) 20 mg PO HS [facility] Stop: 01/14/17 20:59 Last Admin: 07/18/16 21:09 Dose: 20 mg Ondansetron HCl (Zofran) 4 mg IVP EDNOW ONE Stop: 07/18/16 07:22 Last Admin: 07/18/16 07:48 Dose: Not Given Phenyleph/Shark Oil/Min Oil/Petrol (Preparation H Oint) 1 octavia MD TID PRN PRN Reason: HEMORRHOIDS Stop: 01/15/17 10:24 Last Admin: 07/19/16 11:32 Dose: 1 octavia Prednisone (Prednisone) 60 mg PO DAILY [facility] Stop: 01/14/17 13:29 Last Admin: 07/18/16 14:49 Dose: Not Given Prednisone (Prednisone) 20 mg PO DAILY [facility] Stop: 01/14/17 13:29 Last Admin: 07/19/16 09:50 Dose: Not Given Promethazine HCl (Phenergan Injection) 6.25 mg IVP EDNOW ONE Stop: 07/18/16 07:49 Last Admin: 07/18/16 07:50 Dose: 6.25 mg Departure - Departure Disposition: [facility] Acute Clinical Impression: History of fever, Sore throat, Hemorrhoids, external without complications, Candidiasis of mouth Crohn disease Qualifiers: Qualifier Code: (K50.911) Crohn's disease, unspecified, with rectal bleeding Anemia Qualifiers: Qualifier Code: (D64.9) Anemia, unspecified Abdominal pain Qualifiers: Qualifier Code: (R10.33) Periumbilical pain Condition: Fair Report Scribed for: Alexa Ribeiro Report Scribed by: Leah Hilario Date of Report: 07/18/16 Time of Report: 07:04
[2016-07-18] MEDS ORDERED: NS 1,000 ML IV ONE ×2 (07:21→09:47)
[2016-07-18] MEDS ORDERED: HYDROmorphONE/DILAUDID 1 MG/ML SYR IVP ONE ×2 (07:21→09:48)
[2016-07-18] MEDS ORDERED: ONDANSETRON 4 MG/2 ML VIAL IVP ONE (07:21)
[2016-07-18 07:31] LABS: COLOR YELLOW; LEUKOCYTE ESTERASE,URINE NEGATIVE (NEGATIVE); NITRITE,URINE NEGATIVE (NEGATIVE)
[2016-07-18] MEDS ORDERED: PROMETHAZINE HCL 25 MG/ML INJ ONE (07:42)
[2016-07-18] MEDS ORDERED: PROMETHAZINE HCL 25 MG/ML INJ IVP ONE (07:48)
[2016-07-18 07:56] LABS: ABSOLUTE NRBC COUNT 0.02 10^3/uL (0-0.01); ADD DIFF? YES; ADD MORPH? NO; ADD SCAN? YES; ATYPICAL LYMPHOCYTE FLAG 10 (0-99); FRAGMENT RBC FLAG 20 (0-99); HEMATOCRIT 23.9 % (38.0-47.0); HEMOGLOBIN 7.8 g/dL (12.6-16.3); LIPEMIA HEMOLYSIS FLAG 80 (0-99); MEAN CELL HEMOGLOBIN 24.8 pg (27.9-34.1); MEAN CELL HEMOGLOBIN CONCENTR. 32.6 g/dL (32.4-36.7); MEAN CELL VOLUME 75.9 fL (81.5-99.8); MEAN PLATELET VOLUME 7.9 fL (8.7-11.7); NRBC-AUTO% 0.3 % (0.0-0.2); PLATELET CLUMPS FLAG 10 (0-99); PLATELET COUNT 583 10^3/uL (150-400); RED BLOOD CELL COUNT 3.15 10^6/uL (4.18-5.33)
[2016-07-18 07:57] LABS: LEFT SHIFT FLG 300 (0-99)
[2016-07-18 08:19] LABS: ALANINE AMINOTRANSFERASE 25 IU/L (9-52); ALBUMIN 1.8 g/dL (3.5-5.0); ALKALINE PHOSPHATASE 46 IU/L (38-126); ANION GAP 3 mEq/L (8-16); ASPARTATE AMINOTRANSFERASE 15 IU/L (14-46); BILIRUBIN,TOTAL 0.3 mg/dL (0.1-1.4); BILIRUBIN-CONJUGATED 0.2 mg/dL (0.0-0.5); BILIRUBIN-UNCONJUGATED 0.1 mg/dL (0.0-1.1); CALCIUM 7.7 mg/dL (8.5-10.4); CARBON DIOXIDE 29 mEq/l (22-31); CHLORIDE 103 mEq/L (97-110); CREATININE 0.5 mg/dL (0.6-1.0); GLOMERULAR FILTRATION RATE > 60; GLUCOSE 84 mg/dL (70-100); POTASSIUM 4.1 mEq/L (3.5-5.2); SODIUM 135 mEq/L (134-144); TOTAL PROTEIN 4.4 g/dL (6.3-8.2)
--- NOTE | 2016-07-18 09:10 | DX ---
[place] Abdomen July 18, 2016, 7:27 a.m. Indication: Abdominal pain. Comparison: CT abdomen and pelvis dated July 12, 2016. Technique: PA chest , upright and supine abdominal views. Findings: The lungs are clear. Heart size is normal. No pneumoperitoneum. Moderate volume retained stool throughout the right hemicolon and transverse colon. Fold thickening of the descending and sigm oid colon is now obscured. No air-fluid level or dilated loops of bowel. The stomach is decompressed. No mass effect or abnormal calcifications. Impression: 1. Clear chest. 2. Improving colitis. No evidence of obstruction or pneumoperitoneum. 3. Constipation.
[2016-07-18 09:11] LABS: HYPOCHROMIA 2+; MICROCYTES 1+; PLATELET ESTIMATE INCREASED (ADEQ); POLYCHROMASIA 1+
[2016-07-18] MEDS ORDERED: methylPREDNISolone SOD SUCC 125 MG/2 ML VIAL IVP ONE (09:48)
[2016-07-18] MEDS: MESALAMINE 800 MG TAB.DR PO SCH ×3 (10:36→21:08)
[2016-07-18] MEDS ORDERED: ACETAMINOPHEN 325 MG TAB PO PRN (13:02)
[2016-07-18] MEDS ORDERED: ONDANSETRON DISINTEGRATING 4 MG TAB PO PRN (13:02)
[2016-07-18] MEDS ORDERED: PROMETHAZINE HCL 25 MG/ML INJ IVP PRN (13:02)
[2016-07-18] MEDS ORDERED: ONDANSETRON 4 MG/2 ML VIAL IVP PRN (13:02)
[2016-07-18] MEDS ORDERED: diphenhydrAMINE 25 MG CAP PO PRN (13:02)
[2016-07-18] MEDS ORDERED: PROMETHAZINE HCL 25 MG TAB PO PRN (13:02)
[2016-07-18] MEDS ORDERED: NICOTINE POLACRILEX 2 MG GUM B PRN (13:02)
[2016-07-18] MEDS: HYDROmorphONE/DILAUDID 2 MG TAB PO PRN ×3 (13:15→21:09)
[2016-07-18] MEDS ORDERED: NS W/ 20 KCl/L 1,000 ML IV SCH (13:15)
[2016-07-18] MEDS ORDERED: predniSONE 20 MG TAB PO SCH (13:30)
[2016-07-18] MEDS ORDERED: HALOPERIDOL LACT 5 MG/ML INJ IVP PRN (14:14)
--- NOTE | 2016-07-18 14:20 | PDGENHP ---
History and Physical - Chief Complaint Acute edema - History of Present Illness PCP: None Kitchen Stewardess: Dr. Ely HPI: 36-year-old female presenting with acute edema located in the bilateral lower extremities distally around the ankles, onset of symptoms several days ago , duration persistent thereafter. Patient reports that the edema is exacerbated by ambulation and standing upright, alleviated by lying supine. It is associated with diffuse body pain. She reports that she has had ongoing abdominal symptoms which she believes are associated with her Crohn's disease. These consist of abdominal pain slightly alleviated with oral Dilaudid, nonbloody frequent loose bowel movements, nausea preventing her from tolerating a regular oral intake. She reports that she finished taking her steroids approximately 3 days ago and she stopped them because of the lower extremity edema. She reports that she has been taking the Asacol as prescribed and her last dosage was this morning. She has run out of the oral Dilaudid. She is very distressed about her overall health. History Information - Allergies/Home Medication List Allergies/Adverse Reactions: Penicillins Allergy (Unknown, Verified 07/12/16 12:05) Home Medications: Ascorbic Acid [Vitamin C 500 mg (*)] 500 - 1,000 mg PO DAILY 07/18/16 [Last Taken Unknown] Dicyclomine [Bentyl 10 MG (*)] 10 mg PO BID 07/18/16 [Last Taken Unknown] HYDROmorphone HCL [Dilaudid 4 mg (*)] 4 mg PO Q4HRS PRN 07/18/16 [Last Taken ] Mesalamine [Mesalamine] 1,600 mg PO TID 07/18/16 [Last Taken 07/17/16] predniSONE 20 mg PO DAILY 07/18/16 [Last Taken 07/17/16] I have personally reviewed and updated: family history, medical history, social history, surgical history - Past Medical History Additional medical history: Reportedly diagnosed with Crohn's disease in 2006 in [place], currently follows with Dr. Ely. 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 Poly substance abuse. Hepatitis C virus with most recent viral load 4,660,000. History of C difficile colitis. 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6 C 111 H 17 133/84 H 99 07/18/16 13:01 07/18/16 13:01 07/18/16 13:01 07/18/16 13:01 07/18/16 13:01 Constitutional: chronically ill appearing, uncomfortable, cachectic, No no apparent distress, No not in pain Eyes: PERRL, anicteric sclera, EOMI Ears, Nose, Mouth, Throat: moist mucous membranes, hearing normal, ears appear normal, no oral mucosal ulcers Cardiovascular: regular rate and rhythym, no murmur, rub, or gallop, edema (1+ bilateral lower extremity edema at the ankle), No irregularly irregular Respiratory: no respiratory distress, no rales or rhonchi, clear to auscultation Gastrointestinal: normoactive bowel sounds, tenderness (To moderate palpation), distension (Mildly), No guarding Skin: other (Many scattered tattoos without any surrounding erythema or abrasions) Neurologic: AAOx3, sensation intact bilaterally, No weakness (Motor 5/5 bilateral lower extremities), No facial droop Psychiatric: not encephalopathic, thought process linear, anxious, flat affect, agitated Lab Data & Imaging Review 07/18/16 07:37 07/18/16 07:37 WBC 7.97 10^3/uL (3.80-9.50) 07/18/16 07:37 RBC 3.15 10^6/uL (4.18-5.33) L 07/18/16 07:37 Hgb 7.8 g/dL (12.6-16.3) L 07/18/16 07:37 Hct 23.9 % (38.0-47.0) L 07/18/16 07:37 MCV 75.9 fL (81.5-99.8) L 07/18/16 07:37 MCH 24.8 pg (27.9-34.1) L 07/18/16 07:37 MCHC 32.6 g/dL (32.4-36.7) 07/18/16 07:37 RDW 19.0 % (11.5-15.2) H 07/18/16 07:37 Plt Count 583 10^3/uL (150-400) H 07/18/16 07:37 MPV 7.9 fL (8.7-11.7) L 07/18/16 07:37 Neut % (Auto) Not Reported 07/18/16 07:37 Lymph % (Auto) Not Reported 07/18/16 07:37 [place] % (Auto) Not Reported 07/18/16 07:37 Eos % (Auto) Not Reported 07/18/16 07:37 Baso % (Auto) Not Reported 07/18/16 07:37 Nucleat RBC Rel Count 0.3 % (0.0-0.2) H 07/18/16 07:37 Absolute Neuts (auto) Not Reported 07/18/16 07:37 Absolute Lymphs (auto) Not Reported 07/18/16 07:37 Absolute Monos (auto) Not Reported 07/18/16 07:37 Absolute Eos (auto) Not Reported 07/18/16 07:37 Absolute Basos (auto) Not Reported 07/18/16 07:37 Absolute Nucleated RBC 0.02 10^3/uL (0-0.01) H 07/18/16 07:37 Immature Gran % Not Reported 07/18/16 07:37 Seg Neutrophils % 32 % 07/18/16 07:37 Band Neutrophils % 56 % 07/18/16 07:37 Lymphocytes % 5 % 07/18/16 07:37 Monocytes % 4 % 07/18/16 07:37 Eosinophils % 1 % 07/18/16 07:37 Metamyelocytes % 2 % 07/18/16 07:37 Immature Gran # Not Reported 07/18/16 07:37 Absolute Seg Neuts 2.55 10^/uL (1.70-6.50) 07/18/16 07:37 Absolute Band Neuts 4.46 10^3/uL (0.00-0.70) H 07/18/16 07:37 Absolute Lymphocytes 0.40 10^3/uL (1.00-3.00) L 07/18/16 07:37 Absolute Monocytes 0.32 10^3/uL (0.30-0.80) 07/18/16 07:37 Absolute Eosinophils 0.08 10^3/uL (0.03-0.40) 07/18/16 07:37 Absolute Metamyelocyte 0.16 10^3/mL (0.00-0.00) H 07/18/16 07:37 Platelet Estimate INCREASED (ADEQ) H 07/18/16 07:37 Polychromasia 1+ H 07/18/16 07:37 Hypochromasia 2+ H 07/18/16 07:37 Microcytic Cells 1+ H 07/18/16 07:37 VBG Lactic Acid 0.9 mmol/L (0.7-2.1) 07/18/16 07:37 Sodium 135 mEq/L (134-144) 07/18/16 07:37 Potassium 4.1 mEq/L (3.5-5.2) 07/18/16 07:37 Chloride 103 mEq/L (97-110) 07/18/16 07:37 Carbon Dioxide 29 mEq/l (22-31) 07/18/16 07:37 Anion Gap 3 mEq/L (8-16) 07/18/16 07:37 BUN 10 mg/dL (7-23) 07/18/16 07:37 Creatinine 0.5 mg/dL (0.6-1.0) L 07/18/16 07:37 Estimated GFR > 60 07/18/16 07:37 Glucose 84 mg/dL (70-100) 07/18/16 07:37 Calcium 7.7 mg/dL (8.5-10.4) L 07/18/16 07:37 Total Bilirubin 0.3 mg/dL (0.1-1.4) 07/18/16 07:37 Conjugated Bilirubin 0.2 mg/dL (0.0-0.5) 07/18/16 07:37 Unconjugated Bilirubin 0.1 mg/dL (0.0-1.1) 07/18/16 07:37 AST 15 IU/L (14-46) 07/18/16 07:37 ALT 25 IU/L (9-52) 07/18/16 07:37 Alkaline Phosphatase 46 IU/L (38-126) 07/18/16 07:37 Total Protein 4.4 g/dL (6.3-8.2) L 07/18/16 07:37 Albumin 1.8 g/dL (3.5-5.0) L 07/18/16 07:37 Lipase < 10.0 IU/L (23-300) L 07/18/16 07:37 Beta HCG, Qual NEGATIVE 07/18/16 07:37 Urine Color YELLOW 07/18/16 06:55 Urine Appearance CLEAR 07/18/16 06:55 Urine pH 7.0 (5.0-7.5) 07/18/16 06:55 Ur Specific [place] 1.012 (1.002-1.030) 07/18/16 06:55 Urine Protein NEGATIVE (NEGATIVE) 07/18/16 06:55 Urine Ketones NEGATIVE (NEGATIVE) 07/18/16 06:55 Urine Blood NEGATIVE (NEGATIVE) 07/18/16 06:55 Urine Nitrate NEGATIVE (NEGATIVE) 07/18/16 06:55 Urine Bilirubin NEGATIVE (NEGATIVE) 07/18/16 06:55 Urine Urobilinogen NEGATIVE EU (0.2-1.0) 07/18/16 06:55 Ur Leukocyte Esterase NEGATIVE (NEGATIVE) 07/18/16 06:55 Urine Glucose NEGATIVE (NEGATIVE) 07/18/16 06:55 Stool Occult Bld Scrn NEGATIVE (NEGATIVE) 07/18/16 09:41 Group A Strep Screen NEGATIVE (NEGATIVE) 07/18/16 07:25 Visualized and Interpreted imaging results: Yes Interpretation: Abdominal x-ray demonstrating bowel gas and stool without any pneumoperitoneum or obstruction Assessment & Plan Assessment: 36-year-old female presenting with acute lower extremity edema in the setting of chronic Crohn's disease Plan: 1. Lower extremity edema. Acute, new problem this provider, further workup indicated. Given the patient has been hospitalized twice in the last month and she refuses DVT prophylaxis regularly when she is in the hospital, it is prudent to rule out for DVT at this time -get lower extremity ultrasounds -if patient's ultrasounds are negative, suspect that the edema is secondary to prednisone and continue at low dose -continue to elevate 2. Crohn's disease. Chronic, I do not believe that patient's symptoms are consistent with an acute flare as she has been reportedly adherent to her recent medications and her abdominal symptoms have not been precipitously worsening -reviewed outside records including 07/14/[address] Asim characterizing patient's most recent hospitalization for possible acute Crohn's disease flare with possible intussusception, no surgical intervention required, discharged on oral Dilaudid and a prednisone taper -the patient has been adherent to [address] Ely, continue to encourage in the future -patient will most likely benefit from biologic agent therapy once she has been able to demonstrate adherence in the outpatient setting -continue low-dose prednisone, notably 20 mg daily, will taper to 10 mg in 3 days and then off after that -continue Asacol 3 times daily, will discuss with registered nurse hh case manager with the Asacol is on the medication formulary -a continue antiemetics for symptom control as well as oral Dilaudid, avoid IV Dilaudid given patient's substance abuse history and ability to tolerate oral intake 3. Mood disorder and personality disorder. Patient has a dense combination of personality and mood disorders which are difficult to delineate and of which the patient has very limited insight -the patient frequently and quickly escalates, and continue to engage in D escalating behavior with her -behavioral Health Resource nurse consultation appreciated -utilize Haldol as needed as the anxiolytic of choice -continue high-dose at bedtime Zyprexa which patient has expressed has been helpful in the past -continue to encourage outpatient mental health provider follow-up although the patient has not been amenable to this plan in the past -continue to educate the patient's nursing and nursing home director providers that her splitting and manipulative behaviors are to be expected and that they should be interpreted in the context of understanding that she has very limited insight into the inappropriateness of many of her requests as well as behaviors -patient is not suicidal at this time and she does not warrant an M1 hold -that being said, the patient does have a history of expressing passive suicidal ideation as a means of obtaining attention and secondary gain, will modify her diet to suicide precautions adjusted to avoid sharp objects 4. Severe protein calorie malnutrition. Evidenced by proximal muscle wasting and cachexia -get dietary consult -provided dietary supplements 5. Polysubstance abuse. Patient has a history of polysubstance abuse, will continue to try to avoid IV narcotic medications 6. Anemia. Microcytic, fecal occult blood test negative -get iron studies -if iron level low, provide IV iron -no indication for blood transfusion at this time Diet. Regular with supplements Prophylaxis. High risk patient, Lovenox for Code status. Full Disposition. Anticipated discharge is 07/19/2016, pending further workup and stabilization of the issues outlined above. I have discussed the patient's presentation with [facility] provider and she has signed out the patient to me for evaluation at this time.
[2016-07-18] MEDS: HALOPERIDOL 0.5 MG TAB PO PRN ×2 (15:24→17:13)
[2016-07-18] MEDS ORDERED: MESALAMINE 800 MG TAB.DR PO SCH (16:00)
--- NOTE | 2016-07-18 16:27 | US ---
Bilateral Lower Extremity Deep Duplex Venous Ultrasound Indication: Bilateral leg pain and calf edema Technique: The right and left lower extremity deep venous system and veins of the proximal calves wer e interrogated with grayscale, color, and spectral Doppler imaging. Comparison: Right lower extremity deep venous ultrasound dated June 10, 2012 Findings: The right and left common femoral, femoral, popliteal, greater saphenous, and paired brass bobbin winder ior tibial and peroneal veins of the calves normally compress on grayscale imaging. The deep venous s ystem and superficial veins of the proximal calves have normal flow and expected variability. No flui d collection. Impression: Negative. No deep venous thrombosis in the right or left lower extremity.
[2016-07-18] MEDS ORDERED: CEPACOL LOZENGE PO PRN (16:48)
[2016-07-18] MEDS ORDERED: LIDOCAINE 2% VISCOUS 15 ML UDCUP PO PRN (16:48)
[2016-07-18] MEDS: IBUPROFEN 200 MG TAB PO PRN (17:13)
[2016-07-18] MEDS: NYSTATIN SUSP 500000 UNIT/5 ML UDCUP PO SCH ×2 (17:14→21:10)
[2016-07-18] MEDS ORDERED: OLANZapine DISINTEGR 10 MG TAB PO SCH (21:00)
[2016-07-18] MEDS: DICYCLOMINE 10 MG CAP PO SCH (21:09)
[2016-07-19] MEDS: IBUPROFEN 200 MG TAB PO PRN (02:05)
[2016-07-19] MEDS: HYDROmorphONE/DILAUDID 2 MG TAB PO PRN ×3 (02:05→10:38)
[2016-07-19] MEDS ORDERED: CALCIUM CARBONATE 500 MG CHEWABLE TAB PO PRN (03:12)
[2016-07-19 05:51] LABS: % IMMATURE GRANULYOCYTES 1.7 % (0.0-1.1); ABSOLUTE IMMATURE GRANULOCYTES 0.17 10^3/uL (0.00-0.10); ADD DIFF? NO; ADD MORPH? NO; ADD SCAN? YES; ATYPICAL LYMPHOCYTE FLAG 20 (0-99); FRAGMENT RBC FLAG 0 (0-99); HEMATOCRIT 24.3 % (38.0-47.0); HEMOGLOBIN 7.5 g/dL (12.6-16.3); LIPEMIA HEMOLYSIS FLAG 80 (0-99); MEAN CELL HEMOGLOBIN 24.4 pg (27.9-34.1); MEAN CELL HEMOGLOBIN CONCENTR. 30.9 g/dL (32.4-36.7); MEAN CELL VOLUME 78.9 fL (81.5-99.8); PLATELET CLUMPS FLAG 10 (0-99); PLATELET COUNT 522 10^3/uL (150-400); RED BLOOD CELL COUNT 3.08 10^6/uL (4.18-5.33); RED CELL DISTRIBUTION WIDTH 18.9 % (11.5-15.2)
[2016-07-19 06:02] LABS: LEFT SHIFT FLG 300 (0-99)
[2016-07-19 06:06] LABS: ANION GAP 2 mEq/L (8-16); CALCIUM 7.4 mg/dL (8.5-10.4); CARBON DIOXIDE 25 mEq/l (22-31); CHLORIDE 109 mEq/L (97-110); CREATININE 0.4 mg/dL (0.6-1.0); GLOMERULAR FILTRATION RATE > 60; GLUCOSE 115 mg/dL (70-100); MAGNESIUM 2.1 mg/dL (1.6-2.3); POTASSIUM 4.5 mEq/L (3.5-5.2); SODIUM 136 mEq/L (134-144)
[2016-07-19 06:15] LABS: % SATURATION 11 % (20-55); TOTAL IRON BINDING CAPACITY 159 ug/dL (260-490)
[2016-07-19] MEDS: NYSTATIN SUSP 500000 UNIT/5 ML UDCUP PO SCH ×2 (06:22→11:32)
[2016-07-19 07:20] LABS: SCAN NEGATIVE
[2016-07-19 08:07] VITALS: BP 141/92; PULSE 120; RESP 20; TEMP 99.2; O2SAT 93
[2016-07-19] MEDS: HALOPERIDOL 0.5 MG TAB PO PRN (08:07)
[2016-07-19] MEDS: DICYCLOMINE 10 MG CAP PO SCH (08:08)
[2016-07-19] MEDS: MESALAMINE 800 MG TAB.DR PO SCH (08:09)
[2016-07-19] MEDS: predniSONE 20 MG TAB PO SCH ×2 (08:12→09:50)
[2016-07-19] MEDS ORDERED: SODIUM FERRIC GLUCONAT/SUCROSE 125 MG in NS 100 ML IV ONE (08:47)
[2016-07-19] MEDS ORDERED: ENOXAPARIN 40 MG/0.4 ML SYR SC SCH (09:00)
[2016-07-19] MEDS ORDERED: ASCORBIC ACID 500 MG TAB PO SCH (09:00)
[2016-07-19] MEDS ORDERED: PHENYLEPHRINE/SHK LV/MO/PET,WH 1 APP/GM OINT PR PRN (10:25)
--- NOTE | 2016-07-19 12:36 | PDDCSUM ---
Discharge Summary Discharge Summary: DISCHARGE SUMMARY FOLLOW-UP ITEMS: Initiate biologic agent in the outpatient setting DATE OF ADMISSION: 07/18/2016 DATE OF DISCHARGE: 07/19/2016 DISCHARGE DIAGNOSES: 1. Acute lower extremity edema 2. Chronic Crohn's disease 3. Mood disorder and personality disorder 4. Severe protein calorie malnutrition 5. Polysubstance abuse 6. Anemia of chronic inflammatory disease with iron deficiency component CONSULTATIONS: None PROCEDURES / IMAGING: Lower extremity ultrasound demonstrated no evidence of DVT CHIEF COMPLAINT: Lower extremity edema, abdominal pain SUBJECTIVE: Patient reports that she continues to have loose bowel movements and her hemorrhoids are bothering her PHYSICAL EXAM ON DISCHARGE: Systolic blood pressure is 120, heart rate in the 90s, afebrile overnight, satting well on room air, abdomen is soft mildly distended with positive bowel sounds no guarding, lower extremities have trace edema nontender LABS ON DISCHARGE: Hemoglobin is 7.5 with an MCV of 79, white blood cell count 93023, creatinine 0.4, potassium 4.5, iron level 17, TIBC 160, saturation 11% HOSPITAL COURSE BY PROBLEM: 1. Acute lower extremity edema. Secondary to steroid use as well as gravity dependent edema, ruled out for DVT with lower extremity ultrasound. Advised the patient that she should wear GARO hose as well as elevate her legs at night. She was provided with GARO hose prior to discharge. 2. Chronic Crohn's disease. Patient has a reported diagnosis of Crohn's disease and this causes her significant abdominal discomfort as well as diarrhea. She was fecal occult blood negative and she is currently receiving her care through [facility], Dr. Ely. It has been recommended to the patient that she initiate biologic agents but she is currently attempting to establish that she can be more adherent to medications and follow-up care prior to initiating a potentially dangerous treatment modality. She has been continued on mesalamine 1600 mg 3 times daily as well as prednisone and as- needed Dilaudid. We have verified through Medicaid drug coverage that the mesalamine entails a 1 dollar a month co-pay and this will be continued. The patient is also hesitant to initiate higher dose prednisone so we will continue on 10 mg daily until she is seen by Dr. Ely on August 03. The patient will be prescribed 10 tabs of oral Dilaudid for abdominal pain control and we have advised her that she should utilize ibuprofen and Tylenol as well as Zofran for other supportive care. 3. Chronic mood disorder and personality disorder. The patient has a dense combination of mood disorder and personality disorder which is difficult to delineate. She is resistant to receiving mental health care and this contributes to her difficulty adhering to treatment regimens as well as interacting with the healthcare system in a productive way. She will be continued on at bedtime Zyprexa 20 mg. 4. Severe protein calorie malnutrition. Evidence by proximal muscle wasting, low BMI, she received dietary supplements during this hospitalization. Recommended that she continue a regular oral diet after discharge. 5. Polysubstance abuse. Patient has a history of polysubstance abuse and consequently we have been avoiding IV narcotic medications. She will be discharged with short supply of Dilaudid for her abdominal pain. 6. Anemia of chronic inflammatory disease with an iron deficiency component. Patient has microcytic anemia with an iron deficiency component, that being said , her iron studies indicate that she is consuming iron product in the setting of underlying inflammatory process, most likely Crohn's disease. We did provide her with IV iron during this hospitalization and she should follow up her CBC through GI of the [facility] on August 03. She had no evidence of bleeding via rectum. DISCHARGE MEDICATIONS: Please see official discharge medication reconciliation sheet in chart , mesalamine 1600 mg 3 times daily, prednisone 10 mg daily, Zofran as needed, Dilaudid 4 mg tabs prescribed. DISCHARGE INSTRUCTIONS: Patient should follow up with Dr. Ely on 08/03/2016 and have a CBC drawn at that time.
== END 2016-07-19 12:57 | disposition home or self-care (01) ==
LOC: INTOOBSV 09:35 → F3N 12:56
PROVIDERS: ADMIT Internal Medicine; ATTEND Internal Medicine
DX: K50.90 Crohn's disease, unspecified, without complications (principal); B37.0 Candidal stomatitis; R60.0 Localized edema; D50.9 Iron deficiency anemia, unspecified; E46 Unspecified protein-calorie malnutrition; F60.3 Borderline personality disorder; F31.9 Bipolar disorder, unspecified; F12.20 Cannabis dependence, uncomplicated; B18.2 Chronic viral hepatitis C; M06.9 Rheumatoid arthritis, unspecified; K64.4 Residual hemorrhoidal skin tags; F17.210 Nicotine dependence, cigarettes, uncomplicated; Z14.8 Genetic carrier of other disease
CPT/HCPCS: 74022; 93970; G0378; 96374; J1170; J1650; J2550; J2916

== ENCOUNTER 2016-08-12 10:53 | Emergency (ER) | payer MEDICAID ==
[2016-08-12 11:02] VITALS: O2SAT 94
--- NOTE | 2016-08-12 11:13 | EDPHY ---
H & P Stated Complaint: Abd pain,hx Crohns;out of pain meds Time Seen by Provider: 08/12/16 11:12 HPI/ROS: CHIEF COMPLAINT: Acute exacerbation of chronic abdominal pain, dizziness, generalized chest discomfort HISTORY OF PRESENT ILLNESS: Patient has a history of chronic abdominal pain secondary to Crohn's disease. The patient is currently on narcotic pain medications which she ran out of 2 days ago. The patient presents to the ED today complaining of abdominal pain, dizziness and generalized chest discomfort. The patient is currently under the care of Gastroenterology and is scheduled to get a Humira injection tomorrow. The patient typically gets her narcotic medications filled through her primary care provider Dr. Chapa. She has not attempted to establish a visit with her after running out of pain medications. The patient has been hospitalized many times over the past month for acute on chronic abdominal pain. She has had multiple CT scans during those hospitalizations. The patient states this is a fairly typical exacerbation chronic pain. The patient denies asymmetric calf pain or swelling. She denies fever, cough or congestion. The patient reports her pain is moderate in nature. She denies additional complaints. REVIEW OF SYSTEMS: A comprehensive 10 point review of systems is otherwise negative aside from elements mentioned in the history of present illness. Source: Patient Exam Limitations: No limitations - Personal History LMP (Females 10-55): Unknown Current Tetanus Diphtheria and Acellular Pertussis (TDAP): Yes - Medical/Surgical History Hx Asthma: No Hx Chronic Respiratory Disease: No Hx Diabetes: No Hx Cardiac Disease: No Hx Renal Disease: No Hx Cirrhosis: No Hx Alcoholism: No Hx HIV/AIDS: No Hx Splenectomy or Spleen Trauma: No Other PMH: CROHN'S DISEASE, Colitis, HUNINGTON'S DISEASE, cane for ambulation due to arthritis (RA), Hep C. Dentures upper only. - Social History Smoking Status: Current every day smoker - Physical Exam Exam: General Appearance: Thin female, no acute distress Eyes: Pupils equal and round no pallor or injection ENT, Mouth: Mucous membranes moist Respiratory: There are no retractions, lungs are clear to auscultation Cardiovascular: Regular rate and rhythm no acute distress Gastrointestinal: Generalized mild abdominal tenderness, no peritoneal signs, normal bowel sounds Neurological: A&O, normal motor function, normal sensory exam, normal cranial nerves Skin: Warm and dry, no rashes, multiple tattoos Musculoskeletal: Neck is supple nontender Extremities: symmetrical, full range of motion Constitutional: Initial Vital Signs Temperature (C) 36.7 C 08/12/16 10:55 Heart Rate 112 H 08/12/16 10:55 Respiratory Rate 18 08/12/16 10:55 Blood Pressure 102/66 08/12/16 10:55 O2 Sat (%) 94 08/12/16 10:55 O2 Delivery Mode Room Air Allergies/Adverse Reactions: Penicillins Allergy (Unknown, Verified 08/12/16 10:59) Home Medications: Medication Instructions Recorded Ascorbic Acid [Vitamin C 500 mg 500 - 1,000 mg PO DAILY 07/18/16 (*)] Acetaminophen [Tylenol 325mg (*)] 650 mg PO Q4HRS PRN #0 tab 07/19/16 Dicyclomine [Bentyl 10 MG (*)] 10 mg PO BID #60 cap 07/19/16 HYDROmorphone HCL [Dilaudid 4 mg 4 mg PO Q4HRS PRN #10 tab 07/19/16 (*)] Ibuprofen [Motrin (*)] 600 mg PO Q6HRS PRN #0 tab 07/19/16 Mesalamine 1,600 mg PO TID #180 tablet. 07/19/16 Olanzapine [Zyprexa] 20 mg PO HS #30 tablet 07/19/16 Ondansetron Odt [Zofran Odt 4 mg 4 mg PO Q4HRS PRN #40 tab 07/19/16 (*)] Phenylephrine/Shk Lv/Mo/Pet,Wh 1 octavia NE TID PRN #0 oint 07/19/16 [Preparation H Oint] predniSONE 10 mg PO DAILY #20 tab 07/19/16 Medical Decision Making ED Course/Re-evaluation: The patient had an IV established. She received a L of normal saline. She received IV Zofran. The patient's EKG demonstrates no evidence of ischemia or arrhythmia. The patient's laboratory studies are reassuring and essentially unremarkable. I did review the patient's past medical records including her multiple CT scans that have been informed over the past 4 weeks. I did ask the patient to be seen by our bilingual patient support caseworker. She has arranged for the patient to have a follow-up appointment with her primary care provider. The patient was not given any narcotics in the emergency department today for her chronic pain. I do not feel the patient is well served by continued admission to the hospital for IV narcotics to manage her chronic abdominal pain. I do not feel the patient is experiencing acute surgical issue. She has had multiple CT scans and evaluations over the past month. Differential Diagnosis: Differential diagnosis considered includes peptic ulcer disease, gastritis, chronic abdominal pain, bowel perforation, obstruction - Data Points Laboratory Results: Laboratory Results 08/12/16 11:29 08/12/16 11:29 08/12/16 08/12/16 11:29 11:29 WBC 6.51 10^3/uL 10^3/uL (3.80-9.50) RBC 3.38 10^6/uL L 10^6/uL (4.18-5.33) Hgb 8.3 g/dL L g/dL (12.6-16.3) Hct 26.3 % L % (38.0-47.0) MCV 77.8 fL L fL (81.5-99.8) MCH 24.6 pg L pg (27.9-34.1) MCHC 31.6 g/dL L g/dL (32.4-36.7) RDW 19.9 % H % (11.5-15.2) Plt Count 572 10^3/uL H 10^3/uL (150-400) MPV 8.0 fL L fL (8.7-11.7) Neut % (Auto) Not Reported Lymph % (Auto) Not Reported Spencer % (Auto) Not Reported Eos % (Auto) Not Reported Baso % (Auto) Not Reported Nucleat RBC Rel Count 0.0 % % (0.0-0.2) Absolute Neuts (auto) Not Reported Absolute Lymphs (auto) Not Reported Absolute Monos (auto) Not Reported Absolute Eos (auto) Not Reported Absolute Basos (auto) Not Reported Absolute Nucleated RBC 0.00 10^3/uL 10^3/uL (0-0.01) Immature Gran % Not Reported Seg Neutrophils % 47 % % Band Neutrophils % 24 % % Lymphocytes % 19 % % Monocytes % 9 % % Myelocytes % 1 % % Immature Gran # Not Reported Absolute Seg Neuts 3.06 10^/uL 10^/uL (1.70-6.50) Absolute Band Neuts 1.56 10^3/uL H 10^3/uL (0.00-0.70) Absolute Lymphocytes 1.24 10^3/uL 10^3/uL (1.00-3.00) Absolute Monocytes 0.59 10^3/uL 10^3/uL (0.30-0.80) Absolute Myelocytes 0.07 10^3/mL H 10^3/mL (0.00-0.00) Atypical Lymphocytes 1+ H Platelet Estimate INCREASED H (ADEQ) Polychromasia 1+ H Hypochromasia 2+ H Microcytic Cells 1+ H Tear Drop Cells 1+ H Smear Review By Pending Sodium 136 mEq/L mEq/L (134-144) Potassium 3.7 mEq/L mEq/L (3.5-5.2) Chloride 101 mEq/L mEq/L (97-110) Carbon Dioxide 27 mEq/l mEq/l (22-31) Anion Gap 8 mEq/L mEq/L (8-16) BUN 12 mg/dL mg/dL (7-23) Creatinine 0.6 mg/dL mg/dL (0.6-1.0) Estimated GFR > 60 Glucose 104 mg/dL H mg/dL (70-100) Calcium 8.2 mg/dL L mg/dL (8.5-10.4) Total Bilirubin 0.3 mg/dL mg/dL (0.1-1.4) Conjugated Bilirubin 0.2 mg/dL mg/dL (0.0-0.5) Unconjugated Bilirubin 0.1 mg/dL mg/dL (0.0-1.1) AST 11 IU/L L IU/L (14-46) ALT 26 IU/L IU/L (9-52) Alkaline Phosphatase 50 IU/L IU/L (38-126) Total Protein 5.5 g/dL L g/dL (6.3-8.2) Albumin 2.3 g/dL L g/dL (3.5-5.0) Lipase 11.0 IU/L L IU/L (23-300) Medications Given: Discontinued Medications Sodium Chloride (Ns) 1,000 mls @ 0 mls/hr IV ONCE ONE PRN Reason: Wide Open Stop: 08/12/16 11:27 Last Admin: 08/12/16 11:52 Dose: 1,000 mls Departure - Departure Disposition: Home, Routine, Self-Care Clinical Impression: Chronic abdominal pain Condition: Good Instructions: Chronic Abdominal Pain (ED) Additional Instructions: Glenny We have made you an appointment at [facility] with Natacha Christine on August 13, at 1045 in the morning. We hope that you are able to get your medication needs met with her for your Crohns challenges. See the following Pain Management Clinics that accept Medicaid. This could be a great pathway for you as you continue to manage your ongoing pain. As stated, they will need ilya of your medical records to get you established. It could be helpful if you can obtain these while at your appointment on at [facility]. We will be unable to provide prescriptions for outpatient narcotic pain medications for your chronic abdominal pain in the emergency department. Referrals: Joya Greene MD [Primary Care Provider] - As per Instructions
[2016-08-12] MEDS ORDERED: NS 1,000 ML IV ONE (11:26)
--- NOTE | 2016-08-12 11:41 | CPEKG ---
Heart Rate: 94 RR Interval: 638 P-R Interval: 144 QRSD Interval: 78 QT Interval: 356 QTC Interval: 446 P [place]: 75 QRS [place]: 87 T Wave [place]: 72 EKG Severity - NORMAL ECG - EKG Impression: SINUS RHYTHM Electronically Signed By: Yevgeniy Vera 12-Aug-2016 15:53:43
[2016-08-12 11:42] LABS: ADD MORPH? NO; FRAGMENT RBC FLAG 20 (0-99); HEMATOCRIT 26.3 % (38.0-47.0); HEMOGLOBIN 8.3 g/dL (12.6-16.3); LIPEMIA HEMOLYSIS FLAG 80 (0-99); MEAN CELL HEMOGLOBIN 24.6 pg (27.9-34.1); MEAN CELL HEMOGLOBIN CONCENTR. 31.6 g/dL (32.4-36.7); MEAN CELL VOLUME 77.8 fL (81.5-99.8); PLATELET CLUMPS FLAG 10 (0-99); PLATELET COUNT 572 10^3/uL (150-400); RED BLOOD CELL COUNT 3.38 10^6/uL (4.18-5.33); RED CELL DISTRIBUTION WIDTH 19.9 % (11.5-15.2)
[2016-08-12 11:45] LABS: ATYPICAL LYMPHOCYTE FLAG 100 (0-99); LEFT SHIFT FLG 300 (0-99)
[2016-08-12 11:46] LABS: ADD DIFF? YES; ADD SCAN? NO
[2016-08-12 12:04] LABS: ALANINE AMINOTRANSFERASE 26 IU/L (9-52); ALBUMIN 2.3 g/dL (3.5-5.0); ALKALINE PHOSPHATASE 50 IU/L (38-126); ANION GAP 8 mEq/L (8-16); ASPARTATE AMINOTRANSFERASE 11 IU/L (14-46); BILIRUBIN,TOTAL 0.3 mg/dL (0.1-1.4); BILIRUBIN-CONJUGATED 0.2 mg/dL (0.0-0.5); BILIRUBIN-UNCONJUGATED 0.1 mg/dL (0.0-1.1); CALCIUM 8.2 mg/dL (8.5-10.4); CARBON DIOXIDE 27 mEq/l (22-31); CHLORIDE 101 mEq/L (97-110); CREATININE 0.6 mg/dL (0.6-1.0); GLOMERULAR FILTRATION RATE > 60; GLUCOSE 104 mg/dL (70-100); POTASSIUM 3.7 mEq/L (3.5-5.2); SODIUM 136 mEq/L (134-144); TOTAL PROTEIN 5.5 g/dL (6.3-8.2)
[2016-08-12 12:22] LABS: HYPOCHROMIA 2+; MICROCYTES 1+; PLATELET ESTIMATE INCREASED (ADEQ); POLYCHROMASIA 1+
[2016-08-12 13:17] VITALS: BP 130/79; PULSE 80; RESP 14; TEMP 97.9
== END 2016-08-12 13:15 | disposition home or self-care (01) ==
DX: R10.84 Generalized abdominal pain (principal); G89.29 Other chronic pain; F17.200 Nicotine dependence, unspecified, uncomplicated

== ENCOUNTER 2016-11-10 17:40 | Emergency (ER) | payer MEDICAID ==
[2016-11-10 17:46] VITALS: BP 111/72; PULSE 94; RESP 18; TEMP 97.9; O2SAT 96
--- NOTE | 2016-11-10 18:22 | EDPHY ---
H & P Stated Complaint: on humira for crohns, now with redness /swelling l side of face Time Seen by Provider: 11/10/16 18:06 HPI/ROS: CHIEF COMPLAINT: Abscess HISTORY OF PRESENT ILLNESS: Patient is a 36-year-old female who is on Humira for Crohn's disease. Today she was seen by her taste tester who is concerned about a small abscess on her face. She recommended she come here to be evaluated prior to continuing the Humira. Patient states that she has had several over the last year. This 1 has already drained. She states that it is beginning to improve. REVIEW OF SYSTEMS: Constitutional: denies: chills, fever, recent illness, recent injury EENTM: denies: blurred vision, double vision, nose congestion Respiratory: denies: cough, shortness of breath Cardiac: denies: chest pain, irregular heart rate, lightheadedness, palpitations Gastrointestinal/Abdominal: denies: abdominal pain, diarrhea, nausea, vomiting, blood streaked stools Genitourinary: denies: dysuria, frequency, hematuria, pain Musculoskeletal: denies: joint pain, muscle pain Skin: See HPI Neurological: denies: headache, numbness, paresthesia, tingling, dizziness, weakness Hematologic/Lymphatic: denies: blood clots, easy bleeding, easy bruising Immunologic/allergic: denies: HIV/AIDS, transplant EXAM: GENERAL: Well-appearing, well-nourished and in no acute distress. HEAD: Atraumatic, normocephalic. EYES: Pupils equal round and reactive to light, extraocular movements intact, sclera anicteric, conjunctiva are normal. ENT: TMs normal, nares patent, oropharynx clear without exudates. Moist mucous membranes. NECK: Normal range of motion, supple without lymphadenopathy or JVD. LUNGS: Breath sounds clear to auscultation bilaterally and equal. No wheezes rales or rhonchi. HEART: Regular rate and rhythm without murmurs, rubs or gallops. ABDOMEN: Soft, nontender, normoactive bowel sounds. No guarding, no rebound. No masses appreciated. BACK: No CVA tenderness, no spinal tenderness, step-offs or deformities EXTREMITIES: Normal range of motion, no pitting or edema. No clubbing or cyanosis. NEUROLOGICAL: Cranial nerves II through XII grossly intact. Normal speech, normal gait. 5/5 strength, normal movement in all extremities, normal sensation PSYCH: Normal mood, normal affect. SKIN: Small abscess to left lower cheek near drop bone. Not fluctuant, no fluid seen on ultrasound evaluation. 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 Dentures upper only. - Family History Significant Family History: No pertinent family hx - Social History Smoking Status: Current every day smoker Alcohol Use: Sober Drug Use: None Constitutional: Initial Vital Signs Temperature (C) 36.6 C 11/10/16 17:43 Heart Rate 94 11/10/16 17:43 Respiratory Rate 18 11/10/16 17:43 Blood Pressure 111/72 11/10/16 17:43 O2 Sat (%) 96 11/10/16 17:43 O2 Delivery Mode Room Air Allergies/Adverse Reactions: Penicillins Allergy (Unknown, Verified 11/10/16 17:42) Home Medications: Medication Instructions Recorded Humira 11/10/16 Sulfamethox/Tmp 800/160 mg 1 tab PO BID #14 tab 11/10/16 [Bactrim Ds] Medical Decision Making Procedures: Bedside ultrasound performed transcutaneous sleep. No visible fluid collection seen. ED Course/Re-evaluation: The patient's abscess seems to drain previously and be improving however she is on immunosuppressants from a gastrologist. She is requesting antibiotics. I will start her on Bactrim. She understands and agrees with this plan. Differential Diagnosis: Partial list of the Differential diagnosis considered include but were not limited to; abscess, cellulitis, acne and although unlikely based on the history and physical exam, I also considered sepsis, dental infection. I discussed these differential diagnoses and the plan with the patient as well as the usual and expected course. The patient understands that the diagnosis is provisional and that in medicine we are not always correct and that further workup is often warranted. Usual and customary warnings were given. All of the patient's questions were answered. The patient was instructed to return to the emergency department should the symptoms at all worsen or return, otherwise to followup with the physician as we discussed. Departure - Departure Disposition: Home, Routine, Self-Care Clinical Impression: Abscess Condition: Fair Instructions: Abscess (ED) Referrals: Natacha Christine PA [Primary Care Provider] - As per Instructions Prescriptions: Sulfamethox/Tmp 800/160 mg [Bactrim Ds] 1 tab PO BID #14 tab
== END 2016-11-10 18:30 | disposition home or self-care (01) ==
DX: L02.01 Cutaneous abscess of face (principal); F17.200 Nicotine dependence, unspecified, uncomplicated
CPT/HCPCS: 82172-90; 83010-90

== ENCOUNTER 2017-01-25 23:12 | Inpatient (IN) | payer MEDICAID ==
--- NOTE | 2017-01-25 23:34 | EDPHY ---
H & P Stated Complaint: ABCESS LEFT FACE WITH SWELLING, ABCESS ON LABIA HPI/ROS: HPI CHIEF COMPLAINT: Multiple skin lesions, abscess HISTORY OF PRESENT ILLNESS: This patient very pleasant 36-year-old female significant past medical history for Crohn's disease as well as IV drug use, last used IV drugs a week ago, she presents emergency room with multiple lesions on her skin that she is concerned are infections. Specifically she has 1 on the left arm, 1 on her Right labia Majora, and 1 on her left side of her face temporal region, with left facial swelling, She states they been present for about a week. The 1 on her face is getting slightly worse. She decided come the emergency room due to swelling and pain. She tells me the right labia majora lesion is draining. Past Medical History: IV drug use, hepatitis-C, Crohn's disease Past Surgical History: Denies recent surgery Social History: Homeless, lives in [place], resides in a tent, IV drug use, smokes tobacco denies daily alcohol Family History: Noncontributory ROS REVIEW OF SYSTEMS: A comprehensive 10 point review of systems is otherwise negative aside from elements mentioned in the history of present illness. Exam Constitutional triage nursing summary reviewed, vital signs reviewed, awake/ alert. No fever. Vital signs stable. Nontoxic appearing. Eyes normal conjunctivae and sclera, EOMI, PERRLA. HENT normal inspection, atraumatic, moist mucus membranes, no epistaxis, neck supple/ no meningismus, no raccoon eyes. Respiratory clear to auscultation bilaterally, normal breath sounds, no respiratory distress, no wheezing. Cardiovascular rate normal, regular rhythm, no murmur, no edema, distal pulses normal. Gastrointestinal soft, non-tender, no rebound, no guarding, normal bowel sounds, no distension, no pulsatile mass. Genitourinary no CVA tenderness. exam: Performed with JIM DE JESUS as carbide operator, Right labia Majora, mild swelling, erythemetous, draining. (no need to janel as it is draining) Musculoskeletal no midline vertebral tenderness, full range of motion, no calf swelling, no tenderness of extremities, no meningismus, good pulses, neurovascularly intact. Skin multiple erythematous cellulitic lesions. Specifically she has 1 discrete lesion on her left forearm 2 cm x 2 cm, no significant induration or fluctuance, no abscess that needs to be drained, also left face there is an area of cellulitis left temporal region and next to her left eye with some periorbital swelling, tender to palpation, no crepitus, no significant fluctuance, also 3rd lesion on her right labia majora it is draining. Neurologic awake, alert and oriented x 3, AAOx3, moves all 4 extremities equally, motor intact, sensory intact, CN II-XII intact, normal cerebellar, normal vision, normal speech. Psychiatric normal mood/affect. Heme/Lymph/Immune no lymphadenopathy. Differential Diagnosis: Includes but is not limited to in a particular order multiple abscess, cellulitis, strep infection, MRSA infection, preseptal cellulitis, septal cellulitis, facial cellulitis, sepsis, bacteremia Medical Decision Making: Plan for this patient basic blood work, CT face with IV contrast to help further delineate how far this patient cellulitis tracks and if it tracks beyond the septum. Start on Keflex and Bactrim. Re-evaluation: CT scan of the face with IV contrast The results of the study are left-sided facial cellulitis no fluid collection or abscess. The study was read by Dr. Mansfield. I viewed the images myself on the PACS system. 0113AM upon re-evaluation this patient is homeless I do not feel that it is safe to discharge her with the amount of facial cellulitis that she has on her face given that she has no follow-up care and is homeless. Unclear if she has real way to even get antibiotics filled. I do feel that is appropriate admitted to the hospital for IV antibiotics overnight to make sure her left- sided cellulitis of her face does not progressively get worse quickly. She does tell me the swelling redness this evening got progressively worse very quickly. I will touch base with the hospitalist service for admission for left side facial cellulitis. IV vancomycin ordered. Blood cultures ordered. The patient here appears well nontoxic no acute distress. 0206AM: She has a penicillin allergy I have ordered IV vancomycin and IV clindamycin. 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 Dentures upper only, ABCESSES - Social History Smoking Status: Current every day smoker Constitutional: Initial Vital Signs Temperature (C) 37.0 C 01/25/17 23:18 Heart Rate 83 01/25/17 23:18 Respiratory Rate 18 01/25/17 23:18 Blood Pressure 126/81 H 01/25/17 23:18 O2 Sat (%) 97 01/25/17 23:18 O2 Delivery Mode Room Air Allergies/Adverse Reactions: Penicillins Allergy (Unknown, Verified 11/10/16 17:42) Home Medications: Medication Instructions Recorded Adalimumab [Humira] 40 mg SQ Q14D 11/10/16 Medical Decision Making - Diagnostics Imaging Results: Imaging Impressions Face CT 01/25/17 23:43 Impression: 1. Diffuse left facial cellulitis, without abscess or sinusitis. The study was performed as an emergency on-call case and discussed by telephone with Dr. Canada at 1:10 AM hrs. The final interpretation is concordant with the original communication. - Data Points Laboratory Results: Laboratory Results 01/25/17 23:50 01/25/17 23:50 Medications Given: Acetaminophen (Tylenol) 650 mg PO Q4HRS PRN PRN Reason: Pain, Mild/Fever, Can Take PO Stop: 07/25/17 02:12 Last Admin: 01/26/17 09:09 Dose: 650 mg Enoxaparin Sodium (Lovenox) 40 mg SC DAILY [facility] Stop: 07/25/17 08:59 Last Admin: 01/26/17 11:19 Dose: Not Given Hydromorphone HCl (Dilaudid) 4 mg PO Q4HRS PRN PRN Reason: Pain, Severe Able to Take PO Stop: 02/05/17 14:19 Last Admin: 01/26/17 17:54 Dose: 4 mg Vancomycin/Sodium Chloride (Vancomycin 1 Gm (Premix)) 250 mls @ 250 mls/hr IV Q12H [facility] Stop: 02/25/17 13:29 Last Admin: 01/26/17 14:56 Dose: 250 mls Ertapenem 1 gm/ Sodium (Chloride) 100 mls @ 200 mls/hr IV DAILY MAMADOU PRN Reason: Protocol Stop: 02/25/17 11:59 Last Admin: 01/26/17 12:15 Dose: 100 mls Lorazepam (Ativan) 1 mg PO Q4HRS PRN PRN Reason: Anxiety, Able to Take PO Stop: 07/25/17 15:29 Last Admin: 01/26/17 20:21 Dose: 1 mg Naproxen (Aleve) 220 mg PO TID PRN PRN Reason: Pain, Inflammatory Stop: 07/25/17 14:20 Last Admin: 01/26/17 20:19 Dose: 220 mg Olanzapine (Olanzapine) 20 mg PO HS MAMADOU Stop: 07/25/17 20:59 Last Admin: 01/26/17 20:20 Dose: 20 mg Senna/Docusate Sodium (Senokot-S) 1 - 2 tab PO BID MAMADOU PRN Reason: Protocol Stop: 07/25/17 20:59 Last Admin: 01/26/17 20:19 Dose: 2 tab Discontinued Medications Cephalexin (Keflex 500 Mg Prepack#4) 1 btl TAKEHOME EDNOW ONE PRN Reason: Protocol Stop: 01/25/17 23:39 Last Admin: 01/26/17 02:25 Dose: Not Given Cephalexin HCl (Keflex) 500 mg PO EDNOW ONE PRN Reason: Protocol Stop: 01/25/17 23:39 Last Admin: 01/25/17 23:44 Dose: 500 mg Hydromorphone HCl (Dilaudid) 0.2 - 0.4 mg IVP Q4HRS PRN PRN Reason: Pain, Severe Unable to Take PO Stop: 02/05/17 02:12 Last Admin: 01/26/17 02:51 Dose: 0.4 mg Hydromorphone HCl (Dilaudid) 0.2 - 0.4 mg IVP Q2H PRN PRN Reason: Pain, Severe Unable to Take PO Stop: 02/05/17 02:12 Last Admin: 01/26/17 12:15 Dose: 0.4 mg Hydromorphone HCl (Dilaudid) 4 mg PO ONCE ONE Stop: 01/26/17 13:31 Last Admin: 01/26/17 13:35 Dose: 4 mg Vancomycin/Sodium Chloride (Vancomycin 1 Gm (Premix)) 250 mls @ 250 mls/hr IV EDNOW ONE PRN Reason: Protocol Stop: 01/26/17 02:10 Last Admin: 01/26/17 01:27 Dose: 250 mls Clindamycin Phosphate/Dextrose (Cleocin 900 Mg (Premix)) 50 mls @ 100 mls/hr IV ONCE ONE PRN Reason: Protocol Stop: 01/26/17 02:10 Last Admin: 01/26/17 03:45 Dose: 50 mls Sodium Chloride (Ns) 1,000 mls @ 250 mls/hr IV ONCE ONE Stop: 01/26/17 06:12 Last Admin: 01/26/17 03:44 Dose: 1,000 mls Morphine Sulfate (Morphine) 4 mg IVP ONCE ONE Stop: 01/26/17 01:32 Last Admin: 01/26/17 01:42 Dose: 4 mg Ondansetron HCl (Zofran) 4 mg IVP ONCE ONE Stop: 01/26/17 01:32 Last Admin: 01/26/17 01:42 Dose: 4 mg Oxycodone HCl (Oxycodone Ir) 5 - 10 mg PO Q3HRS PRN PRN Reason: Pain, Severe Able to Take PO Stop: 02/05/17 02:12 Last Admin: 01/26/17 10:24 Dose: 10 mg Promethazine HCl (Phenergan) 12.5 mg IVP Q6HRS PRN PRN Reason: Nausea/Vomiting, Can't Take PO Stop: 07/25/17 03:13 Last Admin: 01/26/17 10:59 Dose: 12.5 mg Trimethoprim/Sulfamethoxazole (Bactrim Ds) 1 ea PO EDNOW ONE PRN Reason: Protocol Stop: 01/25/17 23:39 Last Admin: 01/25/17 23:44 Dose: 1 ea Departure - Departure Disposition: [facility] Clinical Impression: Cellulitis Qualifiers: Site of cellulitis: face Qualified Code(s): L03.211 - Cellulitis of face Condition: Fair
[2017-01-25] MEDS ORDERED: CEPHALEXIN 500 MG CAP PO ONE (23:38)
[2017-01-25] MEDS ORDERED: SULFAMETHOX/TMP 800/160 MG 1 TAB PO ONE (23:38)
[2017-01-25] MEDS: CEPHALEXIN 500MG PREPACK#4 BTL TAKEHOME ONE (23:45)
[2017-01-26 00:04] LABS: % IMMATURE GRANULYOCYTES 0.2 % (0.0-1.1); ABSOLUTE IMMATURE GRANULOCYTES 0.02 10^3/uL (0.00-0.10); ADD DIFF? NO; ADD MORPH? YES; ADD SCAN? NO; ATYPICAL LYMPHOCYTE FLAG 30 (0-99); FRAGMENT RBC FLAG 40 (0-99); HEMATOCRIT 31.6 % (38.0-47.0); HEMOGLOBIN 10.2 g/dL (12.6-16.3); LEFT SHIFT FLG 0 (0-99); LIPEMIA HEMOLYSIS FLAG 80 (0-99); MEAN CELL HEMOGLOBIN 26.1 pg (27.9-34.1); MEAN CELL HEMOGLOBIN CONCENTR. 32.3 g/dL (32.4-36.7); MEAN CELL VOLUME 80.8 fL (81.5-99.8); MEAN PLATELET VOLUME 9.4 fL (8.7-11.7); PLATELET CLUMPS FLAG 0 (0-99); PLATELET COUNT 377 10^3/uL (150-400); RED BLOOD CELL COUNT 3.91 10^6/uL (4.18-5.33)
[2017-01-26 00:08] LABS: RED CELL DISTRIBUTION WIDTH 24.7 % (11.5-15.2)
[2017-01-26 00:19] LABS: ANION GAP 11 mEq/L (8-16); CALCIUM 9.7 mg/dL (8.5-10.4); CARBON DIOXIDE 24 mEq/l (22-31); CHLORIDE 104 mEq/L (97-110); CREATININE 0.8 mg/dL (0.6-1.0); GLOMERULAR FILTRATION RATE > 60; GLUCOSE 81 mg/dL (70-100); POTASSIUM 4.3 mEq/L (3.5-5.2); SODIUM 139 mEq/L (134-144)
[2017-01-26] MEDS ORDERED: IOPAMIDOL (ISOVUE-300) 100 ML BTL ONE (00:25)
[2017-01-26 00:38] LABS: HYPOCHROMIA 2+; MACROCYTES 1+; MICROCYTES 2+; PLATELET ESTIMATE ADEQUATE (ADEQ)
[2017-01-26] MEDS ORDERED: VANCOMYCIN HCL/NORMAL SALINE 250 ML IV ONE (01:11)
[2017-01-26] MEDS ORDERED: ONDANSETRON 4 MG/2 ML VIAL IVP ONE (01:31)
[2017-01-26] MEDS ORDERED: ONDANSETRON 4 MG/2 ML VIAL ONE (01:38)
[2017-01-26] MEDS ORDERED: CLINDAMYCIN 900 MG/DEXTROSE 50 ML IV ONE (01:41)
[2017-01-26] MEDS ORDERED: NS 1,000 ML IV ONE (02:13)
[2017-01-26] MEDS ORDERED: HYDROmorphONE/DILAUDID 1 MG/ML SYR IVP PRN (02:13)
[2017-01-26] MEDS ORDERED: ONDANSETRON DISINTEGRATING 4 MG TAB PO PRN (02:13)
[2017-01-26] MEDS ORDERED: ONDANSETRON 4 MG/2 ML VIAL IVP PRN (02:13)
--- NOTE | 2017-01-26 02:23 | PDGENHP ---
History and Physical - Chief Complaint Facial pain - History of Present Illness 36 yo F w/ hx of Chron's, borderline PD, and IVDU presents with facial pain. Patient reports noticing a few pimples on her face a few days ago. On the day prior to admission, she then developed significant facial redness, swelling, and pain. Additionally, she has noticed painful swelling in her L forearm and her R labia majora. She takes Humira every 2 weeks of Chron's disease. I believe she is homeless (she would not discuss this with me) and reports last using methamphetamine 2 weeks ago. She was tearful and agitated throughout my evaluation. History Information - Allergies/Home Medication List Allergies/Adverse Reactions: Penicillins Allergy (Unknown, Verified 11/10/16 17:42) Home Medications: Humira 11/10/16 [Last Taken Unknown] I have personally reviewed and updated: family history, medical history - Past Medical History Additional medical history: Reportedly diagnosed with Crohn's disease in 2006 in [place], currently follows with Dr. Ely. 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 Poly substance abuse. Hepatitis C virus with most recent viral load 4,660,000. History of C difficile colitis. Reported [place] disease carrier - Surgical History Reports: no pertinent surgical hx - Family History Additional family history: Mother reportedly with [place]'s disease, patient was subsequently adopted - Social History Smoking Status: Current every day smoker Drug Use: Other (Methamphetamine) Additional social history: Patient is reportedly homeless and intermittently couch surfing Review of Systems ROS: 10pt was reviewed & negative except for what was stated in HPI & below Physical Exam Temp Pulse Resp BP Pulse Ox 37.0 C 83 18 126/81 H 97 01/25/17 23:18 01/25/17 23:18 01/25/17 23:18 01/25/17 23:18 01/25/17 23:18 Constitutional: other (Tearful, agitated, histrionic) Eyes: PERRL, other (Redness, swelling, and tenderness around L eye) Ears, Nose, Mouth, Throat: moist mucous membranes, no oral mucosal ulcers Cardiovascular: regular rate and rhythym, no murmur, rub, or gallop Respiratory: no respiratory distress, clear to auscultation Gastrointestinal: normoactive bowel sounds, soft, non-tender abdomen Skin: other (Spontaneously draining abscess on L forearm and R labia majora) Musculoskeletal: no joint effusions, No joint tenderness Neurologic: AAOx3, CN II-XII Intact Psychiatric: anxious, agitated Lab Data & Imaging Review 01/25/17 23:50 01/25/17 23:50 WBC 9.03 10^3/uL (3.80-9.50) 01/25/17 23:50 RBC 3.91 10^6/uL (4.18-5.33) L 01/25/17 23:50 Hgb 10.2 g/dL (12.6-16.3) L 01/25/17 23:50 Hct 31.6 % (38.0-47.0) L 01/25/17 23:50 MCV 80.8 fL (81.5-99.8) L 01/25/17 23:50 MCH 26.1 pg (27.9-34.1) L 01/25/17 23:50 MCHC 32.3 g/dL (32.4-36.7) L 01/25/17 23:50 RDW 24.7 % (11.5-15.2) H 01/25/17 23:50 Plt Count 377 10^3/uL (150-400) 01/25/17 23:50 MPV 9.4 fL (8.7-11.7) 01/25/17 23:50 Neut % (Auto) 67.1 % (39.3-74.2) 01/25/17 23:50 Lymph % (Auto) 18.9 % (15.0-45.0) 01/25/17 23:50 Porter % (Auto) 8.2 % (4.5-13.0) 01/25/17 23:50 Eos % (Auto) 5.0 % (0.6-7.6) 01/25/17 23:50 Baso % (Auto) 0.6 % (0.3-1.7) 01/25/17 23:50 Nucleat RBC Rel Count 0.0 % (0.0-0.2) 01/25/17 23:50 Absolute Neuts (auto) 6.06 10^3/uL (1.70-6.50) 01/25/17 23:50 Absolute Lymphs (auto) 1.71 10^3/uL (1.00-3.00) 01/25/17 23:50 Absolute Monos (auto) 0.74 10^3/uL (0.30-0.80) 01/25/17 23:50 Absolute Eos (auto) 0.45 10^3/uL (0.03-0.40) H 01/25/17 23:50 Absolute Basos (auto) 0.05 10^3/uL (0.02-0.10) 01/25/17 23:50 Absolute Nucleated RBC 0.00 10^3/uL (0-0.01) 01/25/17 23:50 Immature Gran % 0.2 % (0.0-1.1) 01/25/17 23:50 Immature Gran # 0.02 10^3/uL (0.00-0.10) 01/25/17 23:50 Platelet Estimate ADEQUATE (ADEQ) 01/25/17 23:50 Hypochromasia 2+ H 01/25/17 23:50 Microcytic Cells 2+ H 01/25/17 23:50 Oval Macrocytes 1+ H 01/25/17 23:50 Sodium 139 mEq/L (134-144) 01/25/17 23:50 Potassium 4.3 mEq/L (3.5-5.2) 01/25/17 23:50 Chloride 104 mEq/L (97-110) 01/25/17 23:50 Carbon Dioxide 24 mEq/l (22-31) 01/25/17 23:50 Anion Gap 11 mEq/L (8-16) 01/25/17 23:50 BUN 13 mg/dL (7-23) 01/25/17 23:50 Creatinine 0.8 mg/dL (0.6-1.0) 01/25/17 23:50 Estimated GFR > 60 01/25/17 23:50 Glucose 81 mg/dL (70-100) 01/25/17 23:50 Calcium 9.7 mg/dL (8.5-10.4) 01/25/17 23:50 Imaging Review: Per radiology prelim read: L facial cellulitis without evidence of char-orbital involvement. Discussed results with Dr. Canada. Assessment & Plan Assessment: 36 yo F w/ Chron's, borderline PD, and IVDU presents with facial cellulitis. Plan: 1. Facial cellulitis - No evidence of sepsis. Likely originated from acne lesion per history. Patient at higher risk due to immunocompromising medication (Humira), hx of IVDU, and homelessness. Facial CT without char-orbital involvement. - Vancomycin, clindamycin IV for now - IVF, pain medications PRN - ID consult 2. Skin abscesses - Spontaneously draining abscesses on L forearm and R labia majora. No further I&D necessary. 3. Hx of Chron's - Reported by patient, on Humira every 2 weeks by her history. 4. Borderline personality - Histrionic and rather agitated on my evaluation. Diet - Regular Code - Full Ppx - LMWH Dispo - Admit to inpatient, anticipate will need several days of IV abx
[2017-01-26] MEDS: CEPHALEXIN 500MG PREPACK#4 BTL TAKEHOME ONE (02:25)
[2017-01-26] MEDS: ACETAMINOPHEN 325 MG TAB PO PRN ×2 (02:31→09:09)
[2017-01-26] MEDS: oxyCODONE IR 5 MG TAB PO PRN ×3 (03:03→10:24)
[2017-01-26] MEDS: PROMETHAZINE HCL 25 MG/ML INJ IVP PRN ×2 (03:34→10:59)
[2017-01-26 05:56] LABS: % IMMATURE GRANULYOCYTES 0.4 % (0.0-1.1); ABSOLUTE IMMATURE GRANULOCYTES 0.03 10^3/uL (0.00-0.10); ADD DIFF? NO; ADD MORPH? YES; ADD SCAN? NO; ATYPICAL LYMPHOCYTE FLAG 30 (0-99); FRAGMENT RBC FLAG 20 (0-99); HEMOGLOBIN 9.8 g/dL (12.6-16.3); LEFT SHIFT FLG 0 (0-99); LIPEMIA HEMOLYSIS FLAG 80 (0-99); MEAN CELL HEMOGLOBIN 25.7 pg (27.9-34.1); MEAN CELL HEMOGLOBIN CONCENTR. 31.6 g/dL (32.4-36.7); MEAN CELL VOLUME 81.4 fL (81.5-99.8); MEAN PLATELET VOLUME 9.4 fL (8.7-11.7); PLATELET CLUMPS FLAG 0 (0-99); PLATELET COUNT 338 10^3/uL (150-400); RED BLOOD CELL COUNT 3.81 10^6/uL (4.18-5.33)
[2017-01-26 06:06] LABS: RED CELL DISTRIBUTION WIDTH 24.4 % (11.5-15.2)
[2017-01-26 06:09] LABS: ANION GAP 10 mEq/L (8-16); CALCIUM 8.7 mg/dL (8.5-10.4); CARBON DIOXIDE 23 mEq/l (22-31); CHLORIDE 108 mEq/L (97-110); CREATININE 0.7 mg/dL (0.6-1.0); GLOMERULAR FILTRATION RATE > 60; GLUCOSE 94 mg/dL (70-100); POTASSIUM 3.9 mEq/L (3.5-5.2); SODIUM 141 mEq/L (134-144)
[2017-01-26] MEDS: HYDROmorphONE/DILAUDID 1 MG/ML SYR IVP PRN ×3 (06:49→12:15)
[2017-01-26 07:34] LABS: ELLIPTOCYTES 1+; HYPOCHROMIA 2+; PLATELET ESTIMATE ADEQUATE (ADEQ); POLYCHROMASIA 1+
--- NOTE | 2017-01-26 11:09 | WOCRNPDOC ---
[facility] Advanced Assessment Note - Skin Integrity Problem, Advanced Assess Left Lower Lateral Proximal Arm Dressing Type: Open to Air Exudate Amount: None Jaz Wound Tissue: Erythema Jaz Wound Swelling: Mild Wound Bed Constitution: Smooth Tissue (50%), Adhered Slough (50%) Site Measurement - Head-to-Toe Length X Width X Depth (cm): 1x1x0.2 Skin Integrity Problem Comment: Small open wound without any drainage at this time. Recommend to cover with antimicrobial gel and allevyn life. Right Labia Dressing Type: Open to Air Jaz Wound Tissue: Erythema, Indurated Wound Bed Constitution: Scab, Dried Exudate Site Measurement - Head-to-Toe Length X Width X Depth (cm): 0.8x0.8x0 Skin Integrity Problem Comment: Diffcult area to place a dressing and for now will watch and wait as it is not draining. Left Temporal Dressing Type: Open to Air Jaz Wound Tissue: Erythema, Indurated Jaz Wound Swelling: Severe Skin Integrity Problem Comment: No open wound at this time. Appears to be an abcess. Wound care will see again tomorrow. Wound care would appreciate a surgical consultation. Rounded on patient with Dr. Rosa today.
[2017-01-26] MEDS: ENOXAPARIN 40 MG/0.4 ML SYR SC SCH (11:19)
[2017-01-26] MEDS: ERTAPENEM 1 GM in NS 100 ML IV SCH (12:15)
[2017-01-26] MEDS ORDERED: CLINDAMYCIN 600 MG/DEXTROSE 50 ML IV SCH (13:00)
--- NOTE | 2017-01-26 13:11 | GCON ---
[f rep st] CONSULTATION INFECTIOUS DISEASE CONSULTATION DATE OF CONSULTATION: 01/26/2017 REFERRING PHYSICIAN: Chase Hernández MD REASON FOR CONSULTATION: Facial cellulitis. CHIEF COMPLAINT: Pain and swelling of the face. HISTORY OF PRESENT ILLNESS: This is a 36-year-old female with a past medical history significant for Crohn disease on Humira, borderline personality disorder, depression, polysubstance abuse, hepatitis C. She apparently did use injection drugs about 2 weeks ago. She does not always use clean needles, and she thinks that she might have licked her needles as well. For the past several days, she has had shaking chills. She denies fevers, and then over the past several days, she also noted swelling developing over her left forearm, her labia, and her left face. The lesion on the forearm did spontaneously open up and drain pus. The area of swelling over her left face, she tried to put some tobacco on it, but that did not help, and then yesterday, she noticed swelling of her eyelids and left cheek. She denies any restriction of eye movement or change in vision. She does have a mild headache. She is intermittently tearful throughout the interview. She had a face CT that was done yesterday which showed facial cellulitis without any discrete abscesses or evidence of sinusitis. Again, diffuse subcutaneous edema and swelling over the left temporal region and eye. She apparently was given a dose of Keflex and Bactrim in the ER but then admitted and given a dose of vancomycin and clindamycin early this morning. She continues to complain of pain, especially involving her face. Infectious Disease is now consulted for further evaluation and opinion regarding the above. REVIEW OF SYSTEMS: GENERAL: No fevers but had shaking chills. HEAD: Does have a headache. EYES: No change in vision and also denies any restriction of eye movement. ENT: No sore throat, difficulty swallowing, ear pain or drainage. CARDIOVASCULAR: Denies any chest pain or rapid heartbeat. RESPIRATORY: Denies any shortness of breath, cough, or sputum production. ABDOMEN: No nausea, vomiting, abdominal pain, diarrhea. : Denies any dysuria, hematuria. MUSCULOSKELETAL: Does have some chronic joint pains that are not above her baseline. SKIN: As above. Rest of 10-point review of systems essentially negative except as noted above. PAST MEDICAL HISTORY: Significant for Crohn disease diagnosed in 2006. She follows with [facility] the [facility] here, Dr. Maggie Ely MD. Borderline personality disorder, depression, bipolar disease, polysubstance abuse, hepatitis C, history of C difficile and ulcers, reported [place] disease carrier. PAST SURGICAL HISTORY: None. FAMILY HISTORY: She is adopted, but apparently her mother had [place] disease. SOCIAL HISTORY: She smokes. She used methamphetamine 2 weeks ago. She is homeless. MEDICATIONS: From AUG. ALLERGIES: Penicillin. she took it once and it gave her a rash, without shortness of breath or throat swelling. Then she took a second time years later and thought she had electric shock like sensations but without rash, shortness of breath, or throat swelling. PHYSICAL EXAMINATION: VITAL SIGNS: Temperature is 36.6, pulse is 56, blood pressure 86/65, respiratory rate is 18, saturation 96% on room air. GENERAL: Patient is sitting up in bed, in no acute respiratory distress, intermittently tearful throughout the interview. HEENT: Eyes without conjunctival injection or petechiae noted. Left eyelid is more swollen than right. Face: She has swelling, again, extending from the left upper eyelid down to her lower eyelid and upper cheek and then extends out laterally to where she has a small developing abscess with induration on the lateral face. She does have some swelling of the right eyelid as well but not as bad. No sinus tenderness over the right maxillary sinus, and extreme sensitivity to palpation on the left side of the face. CARDIOVASCULAR: S1, S2. Regular rate and rhythm. No obvious murmurs appreciated. RESPIRATORY: Clear to auscultate bilaterally. No rhonchi or rales appreciated. ABDOMEN: Positive bowel sounds in all quadrants. Soft, nontender, nondistended. No organomegaly appreciated. EXTREMITIES: No lower extremity edema. MUSCULOSKELETAL: No obvious joint effusions. SKIN: Pertinent findings: She does have a developing abscess of the left lateral face which is indurated and scabbed over, not fluctuant at present, tender. She does have some erythema over that area as well. She has a forearm lesion on the left that has some scabbing. There is some mild induration there, not boggy, no fluctuant. On the undersurface of the forearm, she also has 2 other smaller lesions that are not very indurated although mildly erythematous. She has some skin lesions of her fingers. On the right labia, she has another probably early abscess there as well with some induration and scabbing, tender to touch, and with erythema. LABORATORY DATA: White blood cell count is 8.4, hemoglobin 9.8, platelets are 338. Initial count is 60%. Sodium 141, potassium 3.9, chloride is 108, bicarb is 23, BUN is 9, creatinine is 0.7. Blood cultures x2 sets are pending. Face CT as above. ASSESSMENT: 1. Left facial cellulitis with multiple abscesses noted along the face, forearm , labia. 2. Hepatitis C positive, not on therapy. 3. Crohn disease on Humira. 4. History of injection drug usage, most recently 2 weeks ago. PLAN: At this point in time, blood cultures x2 sets are pending, and we will continue to follow those. We will continue on vancomycin and will add Invanz therapy given recent history of injection drug use with not clean needles in the event that this may be more of a polymicrobial process. We will discontinue clindamycin for now. Close monitoring of her extraocular muscles and movement to ensure she is not developing orbital cellulitis. Would check HIV and hepatitis B serologies as well. Will like need Surgery to be involved as she may benefit from an I and D, although the areas may not be ready at present. She probably needs at least a couple of days of antibiotic therapy prior to that. Would use warm compresses for now. Care coordinated with the wound care team. Thank you very much for allowing this opportunity to care for your patient in consultation. /[id number]/MODL MTDD
[2017-01-26] MEDS ORDERED: HYDROmorphONE/DILAUDID 4 MG TAB PO ONE (13:30)
[2017-01-26] MEDS ORDERED: PROMETHAZINE HCL 25 MG TAB PO PRN (14:20)
[2017-01-26] MEDS ORDERED: BISACODYL 10 MG SUPP PR PRN (14:21)
[2017-01-26] MEDS ORDERED: POLYETHYLENE GLYCOL 3350 17 GM PKT PO PRN (14:21)
[2017-01-26] MEDS ORDERED: LACTULOSE 20 GM/30 ML UDCUP PO PRN (14:21)
[2017-01-26] MEDS ORDERED: NAPROXEN SODIUM 220 MG TAB PO PRN (14:21)
[2017-01-26] MEDS ORDERED: MAGNESIUM HYDROXIDE 30 ML UDCUP PO PRN (14:21)
[2017-01-26] MEDS ORDERED: (Adalimumab [Humira] 40 MG) SQ SCH (14:30)
--- NOTE | 2017-01-26 14:35 | HOSPPROG ---
Hospitalist Progress Note Assessment/Plan: Assessment: 36-year-old female presenting with acute facial cellulitis in the setting of polysubstance abuse Plan: 1. Facial cellulitis. Acute, evidenced by left facial soft tissue edema, erythema, tenderness, nidus of infection was likely picking of either pimple or ulceration on the left scalp hairline, possible organisms include community acquired MRSA, strep, and gram-negatives in setting of immunocompromised state from humira -discussed with Dr. Rosa from Infectious Disease, we will continue on IV vancomycin and meropenem -continue wound care -pain control with combination of Tylenol, naproxen, Dilaudid 4 mg orally q.4 hours p.r.n. -bowel regimen to avoid constipation 2. Mood and personality disorder. 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 -we have attempted to provide the patient with psychiatry evaluation in the past , but the patient is high resistant to receiving mental health services -review of my previous discharge summary from June demonstrates that the patient had been receiving Zyprexa 20 mg at bedtime, and will continue this at this time although it is not entirely clear whether patient is taking this as an outpatient -[facility] support appreciated -based on my prior experience with this patient, supportive care is appropriate but the patient often fluctuates widely in her perception of her care and in her responses, making her situation very challenging -I have discussed the situation with the patient's nurse, the charge nurse, the unit nurse, and we have agreed to set appropriate boundaries with the patient regarding medication management which will be further discussed below -will order as needed oral Ativan to help alleviate some of the patient's discomfort of being hospitalized, but I would recommend that we not administer IV benzodiazepines or escalate the dosage 3. Polysubstance abuse. Chronic, per review of Dr. Hernández's history and physical, there is concern that the patient has recently been using opiates and possible amphetamines, and the patient should not be allowed to leave the unit with an IV line in place given her risk of ongoing abuse -recommend tox screen all the results will be difficult to interpret now that she has been in the hospital receiving opiates for the past 24 hours -will avoid IV narcotic pain medications and will manage her discomfort from her cellulitis using as needed Tylenol, as needed naproxen, as needed oral Dilaudid 4 mg q.4 hours, and I recommend that we not escalate the dosage 4. Crohn's disease. Chronic, the patient is an outpatient of Dr. Ely through GI of the [facility], she has previously received steroids and mesalamine, is currently on Humira, not currently receiving either steroids or mesalamine -appears quiescent, if it becomes exacerbated, would recommend involving GI of the [facility] immediately given the patient's symptoms are somewhat confusing and are confounded with her histrionic personality 5. Severe protein calorie malnutrition. Evidenced by low BMI, proximal muscle wasting and cachexia, in the setting of poor nutrition from Crohn's disease as well as her underlying mental health issues -Ensure Diet. Regular Prophylaxis. High risk, Lovenox 40 Code. Full Disposition. Anticipated discharge uncertain this time, requiring ongoing IV antibiotics. Subjective: the patient is hold under a blanket, she is distrustful and is angry about a urine tox screen Objective: Vital Signs Temp Pulse Resp BP Pulse Ox 36.6 C 56 L 18 86/65 L 96 01/26/17 07:50 01/26/17 07:50 01/26/17 07:50 01/26/17 07:50 01/26/17 07:50 Laboratory Results 01/26/17 05:26 01/26/17 05:26 01/25/17 01/26/17 01/27/17 05:59 05:59 05:59 Intake Total 1200 Balance 1200 - Time Spent With Patient Time Spent with Patient: greater than 35 minutes Time Spent with Patient: Greater than 35 minutes spent on this patients care, greater than 50% of time spent counseling, educating, and coordinating care regarding the above mentioned plan. - Physical Exam Constitutional: chronically ill appearing, uncomfortable, cachectic Eyes: other ( left eyelid is edematous, tender) Ears, Nose, Mouth, Throat: other ( patient not allowing examination) Cardiovascular: regular rate and rhythym, no murmur, rub, or gallop Respiratory: no respiratory distress, no rales or rhonchi, clear to auscultation Gastrointestinal: normoactive bowel sounds, soft, non-tender abdomen, no palpable masses Skin: other ( erythema and edema left face with ulceration and scabs numerous places across the face, patient is declining examination of other wounds) Psychiatric: other ( labile affect, fluctuating between crying and engaging) ICD10 Worksheet Patient Problems: Problems Problem Status Onset Cellulitis Acute Abdominal pain Acute Anxiety attack Acute Crohn disease Acute Depression - Depressive disorder Acute Fever Acute Hemorrhoids, external without complications Acute History of fever Acute Personality disorder Acute Restless leg syndrome Acute Sore throat Acute Thrush, oral Acute Anemia Chronic Polysubstance dependence Chronic Suicidal thoughts Chronic Ulcerative colitis, acute Chronic
[2017-01-26] MEDS: VANCOMYCIN HCL/NORMAL SALINE 250 ML IV SCH (14:56)
[2017-01-26] MEDS ORDERED: diphenhydrAMINE 50 MG CAP PO PRN (15:30)
[2017-01-26] MEDS ORDERED: diphenhydrAMINE 25 MG CAP PO PRN (15:42)
[2017-01-26] MEDS: LORazepam 1 MG TAB PO PRN ×2 (16:23→20:21)
[2017-01-26] MEDS: HYDROmorphONE/DILAUDID 4 MG TAB PO PRN (17:54)
[2017-01-26] MEDS: SENNOSIDES/DOCUSATE SODIUM TAB PO SCH (20:19)
[2017-01-26] MEDS: OLANZapine 10 MG TAB PO SCH (20:20)
[2017-01-27] MEDS: HYDROmorphONE/DILAUDID 4 MG TAB PO PRN ×4 (01:19→21:00)
[2017-01-27] MEDS: VANCOMYCIN HCL/NORMAL SALINE 250 ML IV SCH ×2 (01:20→15:45)
[2017-01-27 05:57] LABS: % IMMATURE GRANULYOCYTES 0.2 % (0.0-1.1); ABSOLUTE IMMATURE GRANULOCYTES 0.02 10^3/uL (0.00-0.10); ADD DIFF? NO; ADD MORPH? YES; ADD SCAN? NO; ATYPICAL LYMPHOCYTE FLAG 30 (0-99); FRAGMENT RBC FLAG 40 (0-99); HEMATOCRIT 32.4 % (38.0-47.0); HEMOGLOBIN 10.2 g/dL (12.6-16.3); LEFT SHIFT FLG 0 (0-99); LIPEMIA HEMOLYSIS FLAG 80 (0-99); MEAN CELL HEMOGLOBIN 25.4 pg (27.9-34.1); MEAN CELL HEMOGLOBIN CONCENTR. 31.5 g/dL (32.4-36.7); MEAN CELL VOLUME 80.8 fL (81.5-99.8); MEAN PLATELET VOLUME 9.1 fL (8.7-11.7); PLATELET CLUMPS FLAG 0 (0-99); PLATELET COUNT 343 10^3/uL (150-400); RED BLOOD CELL COUNT 4.01 10^6/uL (4.18-5.33)
[2017-01-27 06:01] LABS: RED CELL DISTRIBUTION WIDTH 24.6 % (11.5-15.2)
[2017-01-27 06:05] LABS: ALANINE AMINOTRANSFERASE 30 IU/L (9-52); ALBUMIN 3.4 g/dL (3.5-5.0); ALKALINE PHOSPHATASE 68 IU/L (38-126); ANION GAP 8 mEq/L (8-16); ASPARTATE AMINOTRANSFERASE 30 IU/L (14-46); BILIRUBIN,TOTAL 0.4 mg/dL (0.1-1.4); CALCIUM 9.4 mg/dL (8.5-10.4); CARBON DIOXIDE 24 mEq/l (22-31); CHLORIDE 105 mEq/L (97-110); CREATININE 0.7 mg/dL (0.6-1.0); GLOMERULAR FILTRATION RATE > 60; GLUCOSE 81 mg/dL (70-100); POTASSIUM 4.1 mEq/L (3.5-5.2); SODIUM 137 mEq/L (134-144); TOTAL PROTEIN 6.8 g/dL (6.3-8.2)
[2017-01-27 06:27] LABS: PLATELET ESTIMATE DECREASED (ADEQ)
[2017-01-27 06:29] LABS: ELLIPTOCYTES 1+; HYPOCHROMIA 2+; MICROCYTES 1+
[2017-01-27] MEDS: SENNOSIDES/DOCUSATE SODIUM TAB PO SCH ×3 (09:51→21:00)
[2017-01-27] MEDS: ACETAMINOPHEN 325 MG TAB PO PRN (09:51)
[2017-01-27] MEDS: ENOXAPARIN 40 MG/0.4 ML SYR SC SCH ×2 (09:51→09:57)
[2017-01-27] MEDS: ERTAPENEM 1 GM in NS 100 ML IV SCH (09:52)
[2017-01-27] MEDS: LORazepam 1 MG TAB PO PRN ×3 (10:01→21:00)
--- NOTE | 2017-01-27 13:14 | PCMIDPN ---
Assessment/Plan: # Multifocal soft tissue infection: L facial cellulitis with focal area of swelling at oriental orthodox but on CT did not show abscess. Still with eyelid swelling - may be slightly better. L forearm abscess with small incision. Labial abscess but refused exam. --does not require contact isolation because h/o of MRSA so remote --continue IV vancomycin. Although patient with h/o licking needles/IVDU these sites are not likely sites of IVDU - more likely points of picking. strongly suspect staph and strep. DC ertapenem --area on oriental orthodox not clearly fluctuant today, continue with medical therapy for now --Vanco T drawn before 3rd dose, 6.7, increase vancomycin to 1.25gm IV q12 --elevated head, hot compresses L face # H/O IVDU --HIV negative Micro 01/26 blood cx (2) NGTD 2010 MRSA meds vancomycin 1gm IV q12h, #[address] Celaya Subjective: "I just want to leave" indicating she is not being treated the same because she h/o of IVDU Severe pain L face and L forearm Objective: Vital Signs Temp Pulse Resp BP Pulse Ox 37 C 62 16 110/52 L 95 01/27/17 11:04 01/27/17 11:04 01/27/17 11:04 01/27/17 11:04 01/27/17 11:04 Laboratory Results 01/27/17 05:29 01/27/17 05:29 01/26/17 01/27/17 01/28/17 05:59 05:59 05:59 Intake Total 1200 1350 Output Total 1000 Balance 1200 350 - Physical Exam EENT: other (able to open L eyelid slightly, but overall swollen) Respiratory: lungs clear, No accessory muscle use Cardiac/Chest: regular rate, rhythm, No systolic murmur Extremities: other (L forearm with small area erythema with smal incision ), No pedal edema Skin: signs of IVDA Neuro/Psych: alert, oriented x 3, other (aggitated) ICD10 Worksheet Patient Problems: Problems Problem Status Onset Cellulitis Acute Abdominal pain Acute Anxiety attack Acute Crohn disease Acute Depression - Depressive disorder Acute Fever Acute Hemorrhoids, external without complications Acute History of fever Acute Personality disorder Acute Restless leg syndrome Acute Sore throat Acute Thrush, oral Acute Anemia Chronic Polysubstance dependence Chronic Suicidal thoughts Chronic Ulcerative colitis, acute Chronic
[2017-01-27] MEDS: VANCOMYCIN 1.25 GM in D5W 250 ML IV SCH (15:45)
--- NOTE | 2017-01-27 16:38 | HOSPPROG ---
Hospitalist Progress Note Assessment/Plan: Assessment: 36-year-old female presenting with acute facial cellulitis in the setting of polysubstance abuse Plan: 1. Facial/preseptal cellulitis. Acute, clinically improving today and no e/o orbital cellulitis w/ good ocular movements, d/w Dr. Leblanc and no additional ophtho surg recommended at this time -discussed with Dr. Puentes, she recommends stopping invanz, ongoing use of Vanco -continue wound care -pain control with combination of Tylenol, naproxen, Dilaudid 4 mg orally q.4 hours p.r.n. -bowel regimen to avoid constipation 2. Mood and personality disorder. 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 Polysubstance abuse. Chronic, tox screen pending -will avoid IV narcotic pain medications and will manage her discomfort from her cellulitis using as needed Tylenol, as needed naproxen, as needed oral Dilaudid 4 mg q.4 hours, and I recommend that we not escalate the dosage 4. Crohn's disease. Chronic, the patient is an outpatient of Dr. Ely through GI of the [facility], she has previously received steroids and mesalamine, is currently on Humira, not currently receiving either steroids or mesalamine -appears quiescent, if it becomes exacerbated, would recommend involving GI of the [facility] immediately given the patient's symptoms are somewhat confusing and are confounded with her histrionic personality 5. Severe protein calorie malnutrition. Evidenced by low BMI, proximal muscle wasting and cachexia, in the setting of poor nutrition from Crohn's disease as well as her underlying mental health issues -Ensure Diet. Regular Prophylaxis. High risk, Lovenox 40 Code. Full Disposition. Anticipated discharge uncertain this time, requiring ongoing IV antibiotics. Subjective: Patient is withdrawn, she reports that her face still hurts Objective: Vital Signs Temp Pulse Resp BP Pulse Ox 37.1 C 77 12 106/71 96 01/27/17 16:00 01/27/17 16:00 01/27/17 16:00 01/27/17 16:00 01/27/17 16:00 Laboratory Results 01/27/17 05:29 01/27/17 05:29 01/26/17 01/27/17 01/28/17 05:59 05:59 05:59 Intake Total 1200 1350 Output Total 1000 Balance 1200 350 - Physical Exam Constitutional: no apparent distress, chronically ill appearing, uncomfortable, No not in pain (Reports ongoing pain) Eyes: PERRL, other (Extraocular movements intact, no injection of either sclera , no photophobia) Cardiovascular: regular rate and rhythym, no murmur, rub, or gallop Respiratory: no respiratory distress, no rales or rhonchi, clear to auscultation Gastrointestinal: normoactive bowel sounds, soft, non-tender abdomen, no palpable masses Skin: other (Erythema and edema remains over the left face, with improvement from day prior, less edema over the left eyelid, ulceration lateral to the eye in the hairline persists, and there is tenderness) Psychiatric: thought process linear, anxious, flat affect, agitated ICD10 Worksheet Patient Problems: Problems Problem Status Onset Depression - Depressive disorder Acute Polysubstance dependence Chronic Anemia Chronic Ulcerative colitis, acute Chronic Anxiety attack Acute Suicidal thoughts Chronic Restless leg syndrome Acute Personality disorder Acute Abdominal pain Acute Crohn disease Acute Fever Acute History of fever Acute Sore throat Acute Hemorrhoids, external without complications Acute Thrush, oral Acute Cellulitis Acute
[2017-01-27] MEDS: OLANZapine 10 MG TAB PO SCH (21:00)
[2017-01-28] MEDS: HYDROmorphONE/DILAUDID 4 MG TAB PO PRN ×3 (02:22→13:30)
[2017-01-28] MEDS: LORazepam 1 MG TAB PO PRN ×3 (02:23→13:30)
[2017-01-28] MEDS: VANCOMYCIN 1.25 GM in D5W 250 ML IV SCH (02:23)
[2017-01-28 05:17] LABS: % IMMATURE GRANULYOCYTES 0.4 % (0.0-1.1); ABSOLUTE IMMATURE GRANULOCYTES 0.02 10^3/uL (0.00-0.10); ADD DIFF? NO; ADD MORPH? YES; ADD SCAN? NO; ATYPICAL LYMPHOCYTE FLAG 60 (0-99); FRAGMENT RBC FLAG 20 (0-99); HEMATOCRIT 33.2 % (38.0-47.0); HEMOGLOBIN 10.6 g/dL (12.6-16.3); LEFT SHIFT FLG 0 (0-99); LIPEMIA HEMOLYSIS FLAG 80 (0-99); MEAN CELL HEMOGLOBIN 25.5 pg (27.9-34.1); MEAN CELL HEMOGLOBIN CONCENTR. 31.9 g/dL (32.4-36.7); MEAN PLATELET VOLUME 9.2 fL (8.7-11.7); PLATELET CLUMPS FLAG 0 (0-99); PLATELET COUNT 353 10^3/uL (150-400); RED BLOOD CELL COUNT 4.15 10^6/uL (4.18-5.33)
[2017-01-28 05:18] LABS: RED CELL DISTRIBUTION WIDTH 24.8 % (11.5-15.2)
[2017-01-28 05:40] LABS: MACROCYTES 2+; MICROCYTES 2+; PLATELET ESTIMATE ADEQUATE (ADEQ)
[2017-01-28 09:16] VITALS: BP 97/58; PULSE 99; RESP 18; TEMP 98.4; O2SAT 96
[2017-01-28] MEDS: ENOXAPARIN 40 MG/0.4 ML SYR SC SCH (09:31)
[2017-01-28] MEDS: SENNOSIDES/DOCUSATE SODIUM TAB PO SCH (09:32)
--- NOTE | 2017-01-28 11:50 | HOSPPROG ---
Hospitalist Progress Note Assessment/Plan: Assessment: 36-year-old female presenting with acute facial cellulitis in the setting of polysubstance abuse Plan: 1. Facial/preseptal cellulitis. Acute, clinically improving today and no e/o orbital cellulitis w/ good ocular movements, d/w Dr. Leblanc and no additional ophtho surg recommended at this time -significant skin improvement of erythema/edema o/n, organizing into a pustule on L temporal region, not draining -continue wound care -pain control with combination of Tylenol, naproxen, Dilaudid 4 mg orally q.4 hours p.r.n. -bowel regimen to avoid constipation -will d/w ID and gen surg whether to I&D, as well as duration of IV Abx 2. Mood and personality disorder. 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 Polysubstance abuse. Chronic, tox screen pending -will avoid IV narcotic pain medications and will manage her discomfort from her cellulitis using as needed Tylenol, as needed naproxen, as needed oral Dilaudid 4 mg q.4 hours, and I recommend that we not escalate the dosage 4. Crohn's disease. Chronic, the patient is an outpatient of Dr. Ely through GI of the [facility], she has previously received steroids and mesalamine, is currently on Humira, not currently receiving either steroids or mesalamine -appears quiescent, if it becomes exacerbated, would recommend involving GI of the [facility] immediately given the patient's symptoms are somewhat confusing and are confounded with her histrionic personality 5. Severe protein calorie malnutrition. Evidenced by low BMI, proximal muscle wasting and cachexia, in the setting of poor nutrition from Crohn's disease as well as her underlying mental health issues -Ensure Diet. Regular Prophylaxis. High risk, Lovenox 40 Code. Full Disposition. Anticipated discharge likely within next 24-48hrs depending on infxn response to IV abx, requiring ongoing IV antibiotics. Subjective: reports ongoing face pain, very particular about dressing changes Objective: Vital Signs Temp Pulse Resp BP Pulse Ox 36.9 C 99 18 97/58 L 96 01/28/17 09:16 01/28/17 09:16 01/28/17 09:16 01/28/17 09:16 01/28/17 09:16 Laboratory Results 01/28/17 05:08 01/27/17 05:29 01/27/17 01/28/17 01/29/17 05:59 05:59 05:59 Intake Total 1350 1650 Output Total 1000 450 Balance 350 1200 - Physical Exam Constitutional: chronically ill appearing, uncomfortable, cachectic, No no apparent distress (distressed), No not in pain (mild) Eyes: PERRL, EOMI, other (eyes much more visible today), No scleral injection Cardiovascular: regular rate and rhythym, no murmur, rub, or gallop Respiratory: no respiratory distress, no rales or rhonchi, clear to auscultation Gastrointestinal: normoactive bowel sounds, soft, non-tender abdomen, no palpable masses Skin: other (less erythema over L face, pustule on left hairline w/ tenderness/ fluctuance, not readily draining) Psychiatric: not encephalopathic, anxious, flat affect, agitated ICD10 Worksheet Patient Problems: Problems Problem Status Onset Depression - Depressive disorder Acute Polysubstance dependence Chronic Anemia Chronic Ulcerative colitis, acute Chronic Anxiety attack Acute Suicidal thoughts Chronic Restless leg syndrome Acute Personality disorder Acute Abdominal pain Acute Crohn disease Acute Fever Acute History of fever Acute Sore throat Acute Hemorrhoids, external without complications Acute Thrush, oral Acute Cellulitis Acute
--- NOTE | 2017-01-28 14:00 | PDDCSUM ---
Discharge Summary Discharge Summary: DISCHARGE SUMMARY FOLLOW-UP ITEMS: Follow up with Dr. Puentes DATE OF ADMISSION: 01/26/2017 DATE OF DISCHARGE: 01/28/2017 DISCHARGE DIAGNOSES: 1. Acute preseptal and facial cellulitis 2. Mood and personality disorder 3. Chronic polysubstance abuse 4. Chronic Crohn's disease 5. Severe protein calorie malnutrition CONSULTATIONS: Infectious Disease, Ophthalmology cur sided PROCEDURES / IMAGING: CT of the face demonstrating no ocular involvement, left-sided facial cellulitis CHIEF COMPLAINT: Acute face pain SUBJECTIVE: Patient continues to experience some facial discomfort is improving, patient is frustrated and wants to leave against medical advice PHYSICAL EXAM ON DISCHARGE: Systolic blood pressure is 110, heart rate 60, afebrile overnight, satting well on room air, facial edema is improving from day prior, there is less erythema, the patient is able to open up her left eyelid do much more significant degree and her extraocular movements are intact with no scleral injection, she continues to have some tenderness over the left face and also has pustule which is fluctuant and is not draining, at the left temporal region comma affect varies widely throughout the exam, bordering on hysteria and then calm LABS ON DISCHARGE: White blood cell count is 5600, hemoglobin 10.6, tox screen pending at time of discharge HOSPITAL COURSE BY PROBLEM: 1. Preseptal and facial cellulitis. The patient presented with acute cellulitis located in the left face, most likely nidus of infection was a scratched pimple and/or ulceration located along the left temporal area hairline. The area was severely infected on presentation required IV antibiotics. I curb sided Ophthalmology, Dr. Leblanc, and outside of ongoing IV antibiotics, she would not recommend surgical debridement. The patient received a total of 2-3 days of IV antibiotics before she decided to leave against medical advice. At the time of discharge, the affected area was improving and she was discharged with 8 days of subsequent oral doxycycline 100 mg twice daily. I had requested surgical evaluation for incision and drainage of the pustulant ulcerated source, but the patient decided to leave prior to this evaluation. I did provide her with the contact information for the Infectious Disease Clinic did recommend that she follow up within 1 week, prior to discontinuing antibiotics. 2. Mood and personality disorder. 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 The patient is well known to our service, and she receives support from Sherita Damon. Patient has very poor insight into her mental health issues, and she is resistant to mental health care. During her hospitalization, she received Zyprexa 20 mg at bedtime, which had been recommended to her for mood stabilization during her last hospitalization. The patient was adherent to this medication during her hospitalization, but she did not received at time of discharge because she does not believe that she needs to take psychiatric medications. She also does not believe that she needs outpatient psychiatry follow-up so it is unlikely that she will receive additional help outside of this hospitalization. 3. Polysubstance abuse. Patient has chronic polysubstance abuse, and she had reported IV drug use prior to this hospitalization. Tox screen was performed, results are pending at time of discharge. Given patient's abuse and addiction history, she was not permitted to leave the medical floor with an IV line in place, as there is a high risk of abuse potential through her IV lines. Patient became frustrated with this restriction, and she requested to leave against medical advice. All IV lines removed prior to discharge. 4. Crohn's disease. Patient has chronic Crohn's disease and she is managed by Dr. Ely through GI of the [facility]. She has previously been on steroids and mesalamine, but she is currently on Humira. She will follow-up in the GI clinic as scheduled. 5. Severe protein calorie malnutrition. Evidenced by low BMI with proximal muscle wasting and cachexia, in the setting of poor nutrition. Patient received Ensure during this hospitalization. DISCHARGE MEDICATIONS: Please see official discharge medication reconciliation sheet in chart , doxycycline 100 mg twice daily, as needed naproxen for pain management. DISCHARGE INSTRUCTIONS: Please follow up with the Infectious Disease Clinic. Please do not do drugs. TIME SPENT: Greater than 30 minutes were spent on direct patient care, as well as discharge planning and preparation.
--- NOTE | 2017-01-28 20:09 | SOAPPROG ---
SOAP Progress Note Assessment/Plan: Assessment: Late entry I was consulted to see the patient. When I went to the room, she had already left. Can see as outpatient if needed. Plan: 01/28/17 20:08 Objective: Vital Signs Temp Pulse Resp BP Pulse Ox 36.9 C 99 18 97/58 L 96 01/28/17 09:16 01/28/17 09:16 01/28/17 09:16 01/28/17 09:16 01/28/17 09:16 Laboratory Results 01/28/17 05:08 01/27/17 05:29 01/27/17 01/28/17 01/29/17 05:59 05:59 05:59 Intake Total 1350 1650 Output Total 1000 450 Balance 350 1200 ICD10 Worksheet Patient Problems: Problems Problem Status Onset Abdominal pain Acute Anxiety attack Acute Cellulitis Acute Crohn disease Acute Depression - Depressive disorder Acute Fever Acute Hemorrhoids, external without complications Acute History of fever Acute Personality disorder Acute Restless leg syndrome Acute Sore throat Acute Thrush, oral Acute Anemia Chronic Polysubstance dependence Chronic Suicidal thoughts Chronic Ulcerative colitis, acute Chronic
[2017-01-29 11:28] LABS: CARBOXY-THC INTERPRETATION Positive.; CARBOXY-THC- by GC MS 78 ng/mL
[2017-01-30 12:52] LABS: HYDROCODONE - BY LCMS 229 ng/mL (Cutoff: 25); HYDROMORPHONE- BY LCMS 490 ng/mL (Cutoff: 25); MORPHINE BY LC-MS/MS 110 ng/mL (Cutoff: 25); NALOXONE BY LC-MS/MS Negative ng/mL (Cutoff: 25); NORHYDROCODONE BY LC-MS/MS 273 ng/mL (Cutoff: 25); NOROXYCODONE by LC-MS/MS 1933 ng/mL (Cutoff: 25); OPIATES INTERPRETATION See Comments; OXYCODONE - BY LC-MS/MS 1328 ng/mL (Cutoff: 25); OXYMORPHONE BY LC-MS/MS 214 ng/mL (Cutoff: 25)
[2017-02-08] MEDS ORDERED: (Adalimumab [Humira] 40 MG) SQ SCH (09:00)
[2017-02-08] MEDS ORDERED: ADALIMUMAB 40 MG SQ SCH (09:00)
== END 2017-01-28 13:37 | disposition left against medical advice (07) | DRG 602 ==
LOC: F3E 01-26 02:35
PROVIDERS: ADMIT Student in an Organized Health Care Education/Training Program; ATTEND Internal Medicine
DX: L03.211 Cellulitis of face (principal); N76.4 Abscess of vulva; L03.114 Cellulitis of left upper limb; F11.90 Opioid use, unspecified, uncomplicated; F15.90 Other stimulant use, unspecified, uncomplicated; K50.90 Crohn's disease, unspecified, without complications; E43 Unspecified severe protein-calorie malnutrition; Z68.20 Body mass index [BMI] 20.0-20.9, adult; B19.20 Unspecified viral hepatitis C without hepatic coma; M06.9 Rheumatoid arthritis, unspecified; F60.3 Borderline personality disorder; F31.9 Bipolar disorder, unspecified; F17.210 Nicotine dependence, cigarettes, uncomplicated; Z14.8 Genetic carrier of other disease; Z59.0 Homelessness; Z86.14 Personal history of Methicillin resistant Staphylococcus aureus infection
CPT/HCPCS: 80307; 96365; G0480; J1170; J1335; J1650; J2405; J2550; J3370; Q9967

== ENCOUNTER → 2017-05-19 | Outpatient (CLI) | payer MEDICAID ==
[~2017-05-19] MED LIST: GADOBUTROL 10 ML VIAL IVP ONE; GLUCAGON HCL 0.3 MG in SYRINGE 0.3 ML IVP ONE
== END ==
LOC: FIMAGING 08:59
PROVIDERS: ATTEND Physician Assistant
DX: K50.80 Crohn's disease of both small and large intestine without complications (principal)
CPT/HCPCS: A9585; J1610

== ENCOUNTER 2017-07-14 13:16 | Emergency (ER) | payer MEDICAID ==
[2017-07-14 13:23] VITALS: RESP 18; O2SAT 95
[2017-07-14] MEDS ORDERED: ACETAMINOPHEN 325 MG TAB PO ONE (13:32)
--- NOTE | 2017-07-14 13:35 | EDPHY ---
H & P Time Seen by Provider: 07/14/17 13:31 HPI/ROS: CHIEF COMPLAINT: Cough, body aches, fever. HISTORY OF PRESENT ILLNESS: This patient is a 37 year old female complaining of cough, fever, and body aches. Onset of sore throat, cough and fever 6 days ago. Associated with generalized body aches. She has a productive cough and chest pain occurs with coughing. She endorses lack of appetite and states she has not eaten or had anything to drink today. She developed nausea this afternoon and took Zofran at home prior to arrival without relief. No SOB, vomiting, diarrhea, urinary complaints, or other associated symptoms. REVIEW OF SYSTEMS: A 10 point review of systems was performed and is negative with the exception of the elements mentioned in the history of present illness. Past Medical/Surgical History: Crohn's disease Borderline personality disorder w/ depression. Hepatitis C. History of c-difficile Past medical records reviewed including admission 01/26/17 for facial cellulitis. Social History: Former smoker. Friend at bedside. Lives in [place]. Smoking Status: Former smoker Physical Exam: General Appearance: Alert, tearful, nontoxic. Eyes: Pupils equal and round, conjunctival injection ENT, Mouth: Pharyngeal erythema. Dentures in place. Mucous membranes moist Neck: Normal inspection Respiratory: Lungs are clear to auscultation Cardiovascular: Regular rate and rhythm Gastrointestinal: Abdomen is soft and non-tender Neurological: A&O, nonfocal exam Skin: Warm and dry, no rash Extremities: normal inspection Psychiatric: tearful Constitutional: Initial Vital Signs Temperature (C) 37.9 C 07/14/17 13:20 Heart Rate 94 07/14/17 13:20 Respiratory Rate 18 07/14/17 13:20 Blood Pressure 113/84 H 07/14/17 13:20 O2 Sat (%) 95 07/14/17 13:20 O2 Delivery Mode Room Air Allergies/Adverse Reactions: Penicillins Allergy (Unknown, Verified 07/14/17 13:19) Home Medications: Medication Instructions Recorded Adalimumab [Humira] 40 mg SQ Q14D 11/10/16 Medical Decision Making - Diagnostics Imaging Results: Imaging Impressions Chest X-Ray 07/14/17 13:32 Impression: Central bronchitis with early bronchopneumonia in the lower lobes bilaterally.. Chest x-ray independently reviewed by me reveals no acute disease. Imaging: I viewed and interpreted images myself ED Course/Re-evaluation: 37 y/o female presents with six day history of cough, fever, and body aches. Exam reveals pharyngeal erythema. Lungs are clear to auscultation. Symptoms consistent with influenza. Plan for flu swab, chest x-ray, labs including CBC, chemistries. Plan to administer 1L IV NS and 15mg IV Toradol for symptom relief. Triage temp 37.9, 650mg PO acetaminophen administered at triage for fever reduction. 14:26 Reviewed chest x-ray. Negative for pneumonia. 14:36 Patient is positive for influenza B. Reassessed. Discussed results. Declined Toradol. Plan to d/c home in good consition. As the patient became ill David, six days ago, it is too late for Tamiflu administration. She understands to stay well hydrated. Follow up and return precautions discussed. She is comfortable with this plan. Differential Diagnosis: Differential diagnosis includes but is not limited to pneumonia, otitis media, peritonsillar abscess, retropharyngeal abscess, meningitis. - Data Points Laboratory Results: Laboratory Results 07/14/17 14:13 07/14/17 14:13 07/14/17 07/14/17 07/14/17 14:13 14:13 13:38 WBC 4.18 10^3/uL 10^3/uL (3.80-9.50) RBC 4.11 10^6/uL L 10^6/uL (4.18-5.33) Hgb 11.5 g/dL L g/dL (12.6-16.3) Hct 34.2 % L % (38.0-47.0) MCV 83.2 fL fL (81.5-99.8) MCH 28.0 pg pg (27.9-34.1) MCHC 33.6 g/dL g/dL (32.4-36.7) RDW 20.6 % H % (11.5-15.2) Plt Count 115 10^3/uL L 10^3/uL (150-400) MPV 9.1 fL fL (8.7-11.7) Neut % (Auto) 71.0 % % (39.3-74.2) Lymph % (Auto) 18.7 % % (15.0-45.0) [place] % (Auto) 9.1 % % (4.5-13.0) Eos % (Auto) 0.5 % L % (0.6-7.6) Baso % (Auto) 0.5 % % (0.3-1.7) Nucleat RBC Rel Count 0.0 % % (0.0-0.2) Absolute Neuts (auto) 2.97 10^3/uL 10^3/uL (1.70-6.50) Absolute Lymphs (auto) 0.78 10^3/uL L 10^3/uL (1.00-3.00) Absolute Monos (auto) 0.38 10^3/uL 10^3/uL (0.30-0.80) Absolute Eos (auto) 0.02 10^3/uL L 10^3/uL (0.03-0.40) Absolute Basos (auto) 0.02 10^3/uL 10^3/uL (0.02-0.10) Absolute Nucleated RBC 0.00 10^3/uL 10^3/uL (0-0.01) Immature Gran % 0.2 % % (0.0-1.1) Immature Gran # 0.01 10^3/uL 10^3/uL (0.00-0.10) Platelet Estimate DECREASED L (ADEQ) Microcytic Cells 1+ H Oval Macrocytes 1+ H Sodium 137 mEq/L mEq/L (135-145) Potassium 4.2 mEq/L mEq/L (3.5-5.2) Chloride 103 mEq/L mEq/L (97-110) Carbon Dioxide 22 mEq/l mEq/l (22-31) Anion Gap 12 mEq/L mEq/L (8-16) BUN 8 mg/dL mg/dL (7-23) Creatinine 0.6 mg/dL mg/dL (0.6-1.0) Estimated GFR > 60 Glucose 86 mg/dL mg/dL (70-100) Calcium 8.5 mg/dL mg/dL (8.5-10.4) Nasal Influenza A PCR NEGATIVE FOR FLU A (NEGATIVE) Nasal Influenza B PCR FLU B DETECTED H (NEGATIVE) Medications Given: Discontinued Medications Acetaminophen (Tylenol) 650 mg PO EDNOW ONE Stop: 07/14/17 13:33 Last Admin: 07/14/17 13:42 Dose: 650 mg Sodium Chloride (Ns) 1,000 mls @ 0 mls/hr IV ONCE ONE; Wide Open PRN Reason: Protocol Stop: 07/14/17 13:48 Last Admin: 07/14/17 14:05 Dose: 1,000 mls Ketorolac Tromethamine (Toradol) 15 mg IVP EDNOW ONE Stop: 07/14/17 13:48 Last Admin: 07/14/17 14:35 Dose: Not Given Ondansetron HCl (Zofran Odt) 4 mg PO EDNOW ONE Stop: 07/14/17 15:01 Last Admin: 07/14/17 15:04 Dose: 4 mg Departure - Departure Disposition: Home, Routine, Self-Care Clinical Impression: Influenza Condition: Good Instructions: Influenza (ED) Additional Instructions: Use Tylenol as directed below as needed for fever and body aches. Follow up with your primary care physician within 2-3 days for reevaluation. Drink plenty of fluids. Return to the emergency department for high fever, severe headache or neck pain , difficulty breathing, abdominal pain, rash or other worsening of condition. Adult Pain & Fever Control: We recommend Acetaminophen (Tylenol) for pain and fever control. When fever is high or pain severe, both drugs can be used at the same time, but at different intervals. Please note the time differences. Your dose is: Acetaminophen 650mg every 4 to 6 hours Note: do not take Acetaminophen with Hydrocodone (Vicodin, Lortab) or Oxycodone (Percocet). These medications also contain Acetaminophen. No more than 3000mg of Acetaminophen should be taken in 24 hours (for an adult). Referrals: [facility]IG[facility] LARSON [Other] - As per Instructions Report Scribed for: Savannah Ba Report Scribed by: Ju Campbell Date of Report: 07/14/17 Time of Report: 13:34 Physician Review and Approval Statement: 07/14/17 13:35 Portions of this note were transcribed by a medical clinic manager. I personally performed a history, physical exam, medical decision making, and confirmed accuracy of information the transcribed note.
[2017-07-14] MEDS ORDERED: KETOROLAC 15 MG/1 ML SDV IVP ONE (13:47)
[2017-07-14] MEDS ORDERED: NS 1,000 ML IV ONE (13:47)
[2017-07-14 14:26] LABS: PLATELET COUNT 115 10^3/uL (150-400)
[2017-07-14 14:59] VITALS: BP 128/76; PULSE 84; TEMP 99.3
[2017-07-14] MEDS ORDERED: ONDANSETRON DISINTEGRATING 4 MG TAB PO ONE (15:00)
== END 2017-07-14 15:28 | disposition home or self-care (01) ==
DX: J11.1 Influenza due to unidentified influenza virus with other respiratory manifestations (principal); E86.9 Volume depletion, unspecified; Z87.891 Personal history of nicotine dependence
CPT/HCPCS: J1885